=== PATIENT | male | born 1955 | race Caucasian/White ===

== ENCOUNTER 2024-03-04 13:25 | Outpatient (AMB) | payer OTHER, SELFPAY ==
--- NOTE | 2024-03-04 13:32 | MHC.OFFVIS ---
Vital Signs 03/04/24 13:34 Height 5 ft 10.5 in Weight 234 lb 12.677 oz BMI 33.2 BP 132/70 Blood Pressure Location Lt brachial Position Sitting Pulse 67 Pulse Source Pulse Oximeter Pulse Oximetry (%) 97 Oxygen Delivery Method Room Air Intake Visit Reasons: Shortness of breath Protection Officer Required: No Allergies doxycycline Allergy (Severe, Verified 03/04/24 14:47) Unknown erythromycin base Adverse Reaction (Severe, Verified 03/04/24 13:38) Anaphylaxis Penicillins Adverse Reaction (Severe, Verified 03/04/24 13:38) Unresponsive HPI Comments Details: The patient is here for pulmonary evaluation. The patient is a 68 man with know asthma who is also a souza. He has worsening respiratory symptoms for the last several months. Noticing in the spring that he could not seem as well. He was also noticing increasing shortness of breath. Because of the significant dyspnea on exertion and cough he was evaluated by his primary care doctor. He had a full cardiac workup which apparently per report was okay. He did undergo pulmonary function studies which I personally the report demonstrating mild restrictive ventilatory defects. No evidence of any obstructive ventilatory defects at that time. Diffusing capacity also within normal limits. The patient did undergo a CT scan of the chest which I review the report. He had what appears to be significant amount of bronchiolitis throughout. Patient also had evidence of pneumonitis primarily in the right lower lobe and left upper lobe. Also had evidence of bronchitis some mucus debris in the airway. He does have significant rhonchi and wheezing on examination. He is bringing up phlegm on a regular basis. Therefore will going to go ahead and give him a nebulizer treatment and get a sputum culture for further analysis. He will need additional blood work. The patient is only on albuterol right now. He will need additional therapy to treat the amount of inflammation of the lower respiratory tract. We did talk about exposures. Denies any fumes or toxins. Denies any significant allergy exposure. Denies any exposure to mold or farms. Denies any birds. 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 Will go ahead and test for any other inflammatory conditions at this time. [facility] Medical History (Updated 03/04/24 @ 21:59 by Jorge Cardenas MD) Asthma Bronchitis Pneumonitis Bronchiolitis Social History (Updated 03/04/24 @ 13:46 by RADHA Damian) Patient Tobacco Use Status: Never used Tobacco Review of Systems Const Denies fever(s) ENT Reports change in voice Card Denies chest pain Resp Reports chest congestion, Reports cough and Reports wheezing GI Reports no additional complaints Musc Reports no additional complaints Skin/Breast Denies rash Neuro Reports no additional complaints Kana/Lymph Reports no additional complaints Aller/Immun Reports wheezing Physical Exam Vital Signs: Last Vital Signs Pulse 67 03/04/24 13:34 BP 132/70 03/04/24 13:34 Pulse Ox 97 03/04/24 13:34 Oxygen Delivery Method Room Air 03/04/24 13:34 BMI result Body Mass Index 33.2 Const General: comfortable Neck Neck: Yes supple Chest Chest palpation & inspection: normal inspection of the chest Resp Effort & Inspection: normal respiratory effort and prolonged expiratory phase Auscultation: rhonchi, wheezes and diminished lung sounds Cardio Heart sounds: S1 normal heart sound present and S2 normal heart sound present GI Palpation (GI): Soft to palpation Skin General skin exam: no rashes or lesions noted Extrem General: Yes no clubbing, cyanosis or edema Office Procedures Nebulizer Treatment Nebulizer Treatment [id number] RX initial, or Nebulizer Subsequent Treatment Office Meds ipratropium 0.5 mg-albuterol 3 mg (2.5 mg base)/3 mL nebulization soln Performing Provider: Jorge Cardenas MD Performing Location: [facility] Administered by: Tania Hughes LPN on 03/04/24 14:31 Dose Route Admin Location Dispensed Lot Number Expiration Date [facility] [employer] 3 mL inhalation 3 mL [id number] 10/08/25 51501-095-14 AHP Assessment & Plan Assessment & Plan (1) Asthma: Code(s): J45.909 - Unspecified asthma, uncomplicated Category: Medical Qualifiers: Asthma severity: severe Asthma persistence: persistent Asthma complication type: with acute exacerbation Qualified Code(s): J45.51 - Severe persistent asthma with (acute) exacerbation (2) Bronchiolitis: Code(s): J21.9 - Acute bronchiolitis, unspecified Category: Medical (3) Bronchitis: Code(s): J40 - Bronchitis, not specified as acute or chronic Category: Medical (4) Pneumonitis: Code(s): J98.4 - Other disorders of lung Category: Medical Plan start Prednisone taper holding Abx until we review sputum culture. Has severe allergies including SJS. Severe reaction to macrolides/doxy/PCN. start Advair HFA, needs to rinse afterwards WICHO Needs a nebulizer start xopenex BID followed by CPT with acapella valve Bloodwork F/U 4-6 weeks Orders: Orders Complete Blood Count Auto Diff Today J2.9 - Acute bronchiolitis, unspecified, J40 - Bronchitis, not specified as acute or chronic, J98.4 - Other disorders of lung Immunoglobulins,IgG IgA IgM Today J2. - Acute bronchiolitis, unspecified, J40 - Bronchitis, not specified as acute or chronic, J98.4 - Other disorders of lung Sputum Cult + Gram stain Today J2. - Acute bronchiolitis, unspecified, J40 - Bronchitis, not specified as acute or chronic, J98.4 - Other disorders of lung Acid-fast Culture + Smear Today . - Acute bronchiolitis, unspecified, J40 - Bronchitis, not specified as acute or chronic, J98.4 - Other disorders of lung T Spot TB Today J2. - Acute bronchiolitis, unspecified Cyclic Citrullinated Peptide Today J2.9 - Acute bronchiolitis, unspecified, J40 - Bronchitis, not specified as acute or chronic, J98.4 - Other disorders of lung Angiotensin Converting Enzyme Today . - Acute bronchiolitis, unspecified, J40 - Bronchitis, not specified as acute or chronic, J98.4 - Other disorders of lung BECCA Reflex Titer and Pattern Today . - Acute bronchiolitis, unspecified, J40 - Bronchitis, not specified as acute or chronic, J98.4 - Other disorders of lung ANCA Vasculitides Today J2. - Acute bronchiolitis, unspecified, J40 - Bronchitis, not specified as acute or chronic, J98.4 - Other disorders of lung Hypersensitive Pneumonitis Prf Today J2.9 - Acute bronchiolitis, unspecified, J40 - Bronchitis, not specified as acute or chronic, J98.4 - Other disorders of lung, R91.8 - Other nonspecific abnormal finding of lung field Immunoglobulin E Today . - Acute bronchiolitis, unspecified, J40 - Bronchitis, not specified as acute or chronic, J98.4 - Other disorders of lung Resp Allergy Profile Region I Today J21.9 - Acute bronchiolitis, unspecified, J40 - Bronchitis, not specified as acute or chronic, J98.4 - Other disorders of lung, R91.1 - Solitary pulmonary nodule AMB Nebulizer Treatment Today J21.9 - Acute bronchiolitis, unspecified Medications: New prednisone PO daily; Take 2 tabs daily x 5 days, then 1 tablet daily x 5 days 15 tabs 0RF 10 days fluticasone propion-salmeterol 115-21 mcg/actuation (Advair HFA) 2 puffs inhalation Q12H 12 grams 11RF 30 days levalbuterol HCl 1.25 mg (3 mL) inhalation BID 180 mL 8RF 30 days J44.9 - Chronic obstructive pulmonary disease, unspecified Coding Level of Care Code New Pt Level 5 (40889) Diagnoses Severe persistent asthma with acute exacerbation J45.51 Asthma severity: severe Asthma persistence: persistent Asthma complication type: with acute exacerbation Bronchiolitis J21.9 Bronchitis J40 Pneumonitis J98.4 CPT Codes Nebulizer Treatment - Nebulizer Treatment, initial or subsequent: [id number] RX initial, or Nebulizer Subsequent Treatment ([id number]) Time Spent (min) 60
[2024-03-04 13:34] VITALS: BP 132/70; PULSE 67; O2SAT 97; BMI 33.2
== END 2024-03-04 14:45 | disposition home or self-care (01) ==
PROVIDERS: PCP Internal Medicine; Referring Provider Physician Assistant; Visit Provider Hospitalist
DX: J45.51 Severe persistent asthma with (acute) exacerbation (principal); J21.9 Acute bronchiolitis, unspecified; J40 Bronchitis, not specified as acute or chronic; J98.4 Other disorders of lung
CPT/HCPCS: 99205

== ENCOUNTER 2024-03-04 13:25 | Outpatient (REF) | payer OTHER, SELFPAY ==
[2024-03-04 15:16] LABS: MANUAL DIFF FLAG NO
[2024-03-04 15:48] LABS: Basophils Absolute Auto 0.1 X10*3/uL (0.0-0.2); Basophils Percent Auto 0.8 % (0-2); Eosinophils Absolute Auto 0.4 X10*3/uL (0.0-0.4); Eosinophils Percent Auto 3.7 % (0-4); Hematocrit 45.4 % (42.0-52.0); Hemoglobin 15.5 g/dl (14.0-18.0); Imm Gran Abs Auto 0.01 X10*3/uL (0.00-0.03); Imm Gran Pct Auto 0.1 % (0.0-0.4); Lymphocytes Absolute Auto 4.9 X10*3/uL (1.2-4.9); Lymphocytes Percent Auto 49.2 % (20-40); Mean Corpuscular HGB Conc 34.1 g/dl (31.0-36.0); Mean Corpuscular Hemoglobin 31.3 pg (27.0-33.0); Mean Corpuscular Volume 91.5 fL (80.0-98.0); Mean Platelet Volume 12.6 fL (9.4-12.4); Monocytes Absolute Auto 0.5 X10*3/uL (0.1-1.2); Monocytes Percent Auto 4.8 % (2-11); Neutrophils Absolute Auto 4.2 x10*3/uL (2.0-8.3); Neutrophils Percent Auto 41.4 % (45-73); Platelet Count 171 X10*3/uL (160-400); Red Blood Count 4.96 X10*6/uL (4.60-5.80); Red Cell Distribution Width 13.1 % (11.0-16.0)
[2024-03-05 12:04] LABS: IgA 214 mg/dL (70-320); IgG 989 mg/dL (600-1540); IgM 83 mg/dL (50-300)
[2024-03-05 22:07] LABS: Myeloperoxidase Antibody <1.0 AI; Proteinase 3 PR3 Antibodies <1.0 AI
[2024-03-06 05:45] LABS: Class Alternaria alternata 0; Class Aspergillus fumigatus 0; Class Bermuda Grass 2; Class Birch 2; Class Cat Dander 0; Class Cladosporium herbarum 0; Class Cockroach 0; Class Common Ragweed 0/1; Class Cottonwood 0/1; Class Derm. pterony 2; Class Dermatophagoides farinae 2; Class Dog Dander 0; Class Elm 0/1; Class Maple Box Elder 2; Class Mountain Cedar 0; Class Mouse Urine Protein 0; Class Mugwort 0/1; Class Oak 1; Class Penicillium crysogenum 0; Class Rough Pigweed 1; Class Sheep Sorrel 1; Class Sycamore 1; Class Timothy Grass 2; Class Walnut Tree 0/1; Class White Ash 2; Class White Mulberry 0; D001 IgE D pteronyssinus 3.18 kU/L; D002 - IgE D farinae 2.44 kU/L; E001 - IgE Cat Dander <0.10 kU/L; E005 - IgE Dog Dander <0.10 kU/L; E072-IgE Mouse Urine <0.10 kU/L; G002 IgE Bermuda Grass 0.81 kU/L; G006 - IgE Timothy Grass 0.78 kU/L; I006-IgE Cockroach, German <0.10 kU/L; Immunoglobulin E 108 kU/L (<OR=114); M001 IgE Penicillium chrysogen <0.10 kU/L; M002 - IgE Cladosporium herbar <0.10 kU/L; M003 - IgE Aspergillus fumigat <0.10 kU/L; M006 - IgE Alternaria alternat <0.10 kU/L; T001 IgE Maple/Box Elder 0.71 kU/L; T003 IgE Common Silver Birch 0.94 kU/L; T006 - IgE Cedar, Mountain <0.10 kU/L; T007 - IgE Oak, White 0.63 kU/L; T010 - IgE Walnut 0.33 kU/L; T011 - IgE Maple Leaf Sycamore 0.62 kU/L; T014 - IgE Cottonwood 0.32 kU/L; T015 - IgE Ash, White 0.74 kU/L; T070 - IgE White Mulberry <0.10 kU/L; W001 - IgE Ragweed, Short 0.32 kU/L; W006 - IgE Mugwort 0.27 kU/L; W014 IgE Pigweed, Common 0.68 kU/L; W018 IgE Sheep Sorrel 0.64 kU/L
[2024-03-06 06:24] LABS: Cyclic Citrullinated Peptide <16 UNITS
[2024-03-06 16:09] LABS: Anti Nuclear Antibody Pattern Nuclear, Homogeneous; Anti Nuclear Antibody Screen POSITIVE (NEGATIVE)
[2024-03-07 16:12] LABS: TS Negative Control Passed; TS Panel A 0; TS Panel B 0; TS Positive Control Passed; TSpotTB Negative (Negative)
[2024-03-07 19:23] LABS: Angiotensin Converting Enzyme 51 U/L (9-67)
[2024-03-13 13:32] LABS: Asperg fumigatus Precip Abs NEGATIVE (NEGATIVE); Micropoly faeni Abs NEGATIVE (NEGATIVE); Pigeon serum Abs NEGATIVE (NEGATIVE); Saccharo pora viridis Abs NEGATIVE (NEGATIVE); Thermo candidus Abs NEGATIVE (NEGATIVE); Thermoa vulgaris #1 NEGATIVE (NEGATIVE)
== END 2024-03-04 13:26 | disposition home or self-care (01) ==
LOC: HO.LAB 13:25
PROVIDERS: PCP Internal Medicine; Referring Provider Physician Assistant; Visit Provider Hospitalist
DX: J21.9 Acute bronchiolitis, unspecified (principal); J98.4 Other disorders of lung; J40 Bronchitis, not specified as acute or chronic; R91.8 Other nonspecific abnormal finding of lung field; R91.1 Solitary pulmonary nodule; Z91.09 Other allergy status, other than to drugs and biological substances
CPT/HCPCS: 36415; 82164; 82784; 82785; 85025; 86003; 86021; 86038; 86039; 86200; 86331; 86481; 86606; 86609; 87070; 87077; 87116; 87185; 87205; 87206; 94640

== ENCOUNTER 2024-03-10 12:55 | Outpatient (REF) | payer OTHER, SELFPAY | END 2024-03-10 12:56 | disposition home or self-care (01) | LOC: HO.LNP 12:55 | PROVIDERS: Visit Provider Hospitalist | DX: J21.9 Acute bronchiolitis, unspecified (principal); J98.4 Other disorders of lung; J40 Bronchitis, not specified as acute or chronic | CPT/HCPCS: 87070; 87116; 87205; 87206 ==

== ENCOUNTER 2024-04-23 08:33 | Outpatient (AMB) | payer OTHER, SELFPAY ==
--- NOTE | 2024-04-23 08:34 | MHC.OFFVIS ---
Vital Signs 04/23/24 08:36 Height 5 ft 10.5 in Weight 235 lb 14.314 oz BMI 33.4 BP 126/64 Blood Pressure Location Lt brachial Position Sitting Pulse 89 Pulse Source Pulse Oximeter Pulse Oximetry (%) 99 Oxygen Delivery Method Room Air Intake Visit Reasons: Shortness of breath Chain Tender Required: No Fumigator And Sterilizer: Fumigator And Sterilizer offered & declined Accompanied by: Spouse Allergies doxycycline Allergy (Severe, Verified 04/23/24 08:39) Unknown erythromycin base Adverse Reaction (Severe, Verified 04/23/24 08:39) Anaphylaxis Penicillins Adverse Reaction (Severe, Verified 04/23/24 08:39) Unresponsive Medication List - Last Reconciled 04/23/24 by Christina Garcia LPN albuterol sulfate 90 mcg/actuation 2 puffs inhalation Q6H PRN ascorbic acid (vitamin C) 500 mg PO BID B-complex with vitamin C ER 1 tab PO DAILY fluocinonide 0.05% 1 appl topical BID-QID PRN fluticasone propion-salmeterol 115-21 mcg/actuation (Advair HFA) 2 puffs inhalation Q12H 30 days hydrochlorothiazide 12.5 mg PO DAILY ibuprofen 800 mg PO Q8H iodine (Kelp (iodine)) mcg PO levalbuterol HCl 1.25 mg (3 mL) inhalation BID 30 days levothyroxine 50 mcg PO DAILY melatonin mg PO potassium citrate ER 10 mEq PO TID sulfamethoxazole-trimethoprim 800-160 mg (Bactrim DS) 1 tab PO Q12H 14 days tamsulosin (Flomax) 0.4 mg PO BEDTIME triamcinolone acetonide 0.1% 1 appl topical DAILY tyrosine 500 mg PO BID vitamin E mixed units PO HPI Comments Details: The patient is a 68 man with know asthma who is also a souza. He has worsening respiratory symptoms for the last several months. Noticing in the spring that he could not seem as well. He was also noticing increasing shortness of breath. Because of the significant dyspnea on exertion and cough he was evaluated by his primary care doctor. He had a full cardiac workup which apparently per report was okay. He did undergo pulmonary function studies which I personally the report demonstrating mild restrictive ventilatory defects. No evidence of any obstructive ventilatory defects at that time. Diffusing capacity also within normal limits. The patient did undergo a CT scan of the chest which I review the report. He had what appears to be significant amount of bronchiolitis throughout. Patient also had evidence of pneumonitis primarily in the right lower lobe and left upper lobe. Also had evidence of bronchitis some mucus debris in the airway. He does have significant rhonchi and wheezing on examination. He is bringing up phlegm on a regular basis. Therefore will going to go ahead and give him a nebulizer treatment and get a sputum culture for further analysis. He will need additional blood work. The patient is only on albuterol right now. He will need additional therapy to treat the amount of inflammation of the lower respiratory tract. We did talk about exposures. Denies any fumes or toxins. Denies any significant allergy exposure. Denies any exposure to mold or farms. Denies any birds. 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 Will go ahead and test for any other inflammatory conditions at this time. 04/23/2024 the patient is here for a pulmonary follow-up visit. He is still having his cough. Still having some wheezing. The nebulizer has been helpful. He is still having some chest congestion. His cultures were negative for any infection. Still waiting for his mycobacterial cultures. Blood work demonstrated a slightly elevated BECCA which is likely nonsignificant and also demonstrated significant allergies specially to dust mites and also environmental allergies. The patient was not able to start the Advair HFA because he did not receive the pharmacy. Was sent but likely it was not approved by his insurance. We never got a call. Will had and set him Wixela which is covered. 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 If at any point the powdered inhaler bothers his voice will go ahead and do a prior approval to get him a HFA inhaler such as Advair HFA. In the meantime the patient should continue the nebulizer. He never got the Acapella valve. I will go ahead and requested again from the [employer]. He did bring a CD and I will take a look at the images to see the degree of bronchiolitis. He is going to work on getting hypoallergenic covers and also maybe removing the carpus out of his bedroom. The patient will return 6-8 weeks. If he has no better or if he is having a reaction to the medication he will call for an earlier evaluation or change. [facility] Medical History (Updated 03/04/24 @ 21:59 by Jorge Cardenas MD) Asthma Bronchitis Pneumonitis Bronchiolitis Social History Patient Tobacco Use Status: Never used Tobacco Review of Systems Const Denies fever(s) ENT Reports change in voice Card Denies chest pain Resp Reports chest congestion, Reports cough and Reports wheezing GI Reports no additional complaints Musc Reports no additional complaints Skin/Breast Denies rash Neuro Reports no additional complaints Kana/Lymph Reports no additional complaints Aller/Immun Reports wheezing Physical Exam Vital Signs: Last Vital Signs Pulse 89 04/23/24 08:36 BP 126/64 04/23/24 08:36 Pulse Ox 99 04/23/24 08:36 Oxygen Delivery Method Room Air 04/23/24 08:36 BMI result Body Mass Index 33.4 Const General: comfortable Neck Neck: Yes supple Chest Chest palpation & inspection: normal inspection of the chest Resp Effort & Inspection: normal respiratory effort and prolonged expiratory phase Auscultation: wheezes and diminished lung sounds Cardio Heart sounds: S1 normal heart sound present and S2 normal heart sound present GI Palpation (GI): Soft to palpation Skin General skin exam: no rashes or lesions noted Extrem General: Yes no clubbing, cyanosis or edema Assessment & Plan Assessment & Plan (1) Asthma: Code(s): J45.909 - Unspecified asthma, uncomplicated Category: Medical Qualifiers: Asthma complication type: with acute exacerbation Asthma persistence: persistent Asthma severity: severe Qualified Code(s): J45.51 - Severe persistent asthma with (acute) exacerbation (2) Bronchiolitis: Code(s): J21.9 - Acute bronchiolitis, unspecified Category: Medical (3) Bronchitis: Code(s): J40 - Bronchitis, not specified as acute or chronic Category: Medical (4) Pneumonitis: Code(s): J98.4 - Other disorders of lung Category: Medical Plan Severe reaction to macrolides/doxy/PCN. start Wixela, monitor for laryngitis WICHO nebulizer xopenex BID followed by CPT needs an acapella valve hypoallergenic covers need to review CT chest F/U 8-12weeks Medications: New fluticasone propion-salmeterol 250-50 mcg/dose (Wixela Inhub) 1 inh inhalation Q12H 60 ea 11RF 30 days Coding Level of Care Code Est Pt Level 4 (58993) Diagnoses Severe persistent asthma with acute exacerbation J45.51 Asthma complication type: with acute exacerbation Asthma persistence: persistent Asthma severity: severe Bronchiolitis J21.9 Bronchitis J40 Pneumonitis J98.4 Time Spent (min) 17
[2024-04-23 08:36] VITALS: BP 126/64; PULSE 89; O2SAT 99; BMI 33.4
== END 2024-04-23 09:04 | disposition home or self-care (01) ==
PROVIDERS: PCP Internal Medicine; Visit Provider Hospitalist
DX: J45.51 Severe persistent asthma with (acute) exacerbation (principal); J21.9 Acute bronchiolitis, unspecified; J40 Bronchitis, not specified as acute or chronic; J98.4 Other disorders of lung
CPT/HCPCS: 99214

== ENCOUNTER 2024-06-17 15:19 | Outpatient (AMB) | payer OTHER, SELFPAY ==
[2024-06-17 15:21] VITALS: BP 130/70; PULSE 70; O2SAT 100; BMI 34.1
--- NOTE | 2024-06-17 15:21 | A.OFFVIS_ITS ---
Vital Signs 06/17/24 15:21 Height 5 ft 10.5 in Weight 241 lb 6.499 oz BMI 34.1 BP 130/70 Blood Pressure Location Rt brachial Position Sitting Pulse 70 Pulse Source Pulse Oximeter Pulse Oximetry (%) 100 Oxygen Delivery Method Room Air Intake Visit Reasons: Shortness of breath Allergies doxycycline Allergy (Severe, Verified 06/17/24 15:24) Unknown erythromycin base Adverse Reaction (Severe, Verified 06/17/24 15:24) Anaphylaxis Penicillins Adverse Reaction (Severe, Verified 06/17/24 15:24) Unresponsive HPI Comments Details: The patient is a 68 man with know asthma who is also a souza. He has worsening respiratory symptoms for the last several months. Noticing in the spring that he could not seem as well. He was also noticing increasing shortness of breath. Because of the significant dyspnea on exertion and cough he was evaluated by his primary care doctor. He had a full cardiac workup which shannon arently per report was okay. He did undergo pulmonary function studies which I personally the report demonstrating mild restrictive ventilatory defects. No evidence of any obstructive ventilatory defects at that time. Diffusing capacity also within normal limits. The patient did undergo a CT scan of the chest which I review the report. He had what appears to be significant amount of bronchiolitis throughout. Patient also had evidence of pneumonitis primarily in the right lower lobe and left upper lobe. Also had evidence of bronchitis some mucus debris in the airway. He does have significant rhonchi and wheezing on examination. He is bringing up phlegm on a regular basis. Therefore will going to go ahead and give him a nebulizer treatment and get a sputum culture for further analysis. He will need additional blood work. The patient is only on albuterol right now. He will need additional therapy to treat the amount of inflammation of the lower respiratory tract. We did talk about exposures. Denies any fumes or toxins. Denies any significant allergy exposure. Denies any exposure to mold or farms. Denies any birds. 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 Will go ahead and test for any other inflammatory conditions at this time. 04/23/2024 the patient is here for a pulmonary follow-up visit. He is still having his cough. Still having some wheezing. The nebulizer has been helpful. He is still having some chest congestion. His cultures were negative for any infection. Still waiting for his mycobacterial cultures. Blood work demonstrated a slightly elevated BECCA which is likely nonsignificant and also demonstrated significant allergies specially to dust mites and also environmental allergies. The patient was not able to start the Advair HFA because he did not receive the pharmacy. Was sent but likely it was not approved by his insurance. We never got a call. Will had and set him Wixela which is covered. 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 If at any point the powdered inhaler bothers his voice will go ahead and do a prior approval to get him a HFA inhaler such as Advair HFA. In the meantime the patient should continue the nebulizer. He never got the Acapella valve. I will go ahead and requested again from the [employer]. He did bring a CD and I will take a look at the images to see the degree of bronchiolitis. He is going to work on getting hypoallergenic covers and also maybe removing the carpus out of his bedroom. The patient will return 6-8 weeks. If he has no better or if he is having a reaction to the medication he will call for an earlier evaluation or change. 06/17/2024 the patient is here for a pulmonary follow-up visit. Overall the patient has been doing better. He is still having chest congestion though. He has not started the Wixela because he has the consult coming up and he does not want a message voice for the consult. Then afterwards he will try the Wixela. In the meantime the patient did bring the CD in for a CT scan that he had back in 11/29/2023 this was done at [facility]. We did personally reviewed. He had some evidence of bronchiolitis with a minimal and did have pulmonary nodules in addition to some inflammatory areas suggesting pneumonitis. Also had evidence of chronic bronchitis with thickening of the airways and dilation of the airways. This is mainly at the bases. We were able to teach him how to use the Acapella valve use that in the office and was able to bring up some phlegm. He is going to do it again at home and try to continue to use it after the nebulized therapy for chest physical therapy. He is going to try to bring a sputum sample to the laboratory for further analysis. We can also consider bronchoscopy but I would be very cautious with the vocal cords specially with having to go through the vocal cords for an airway survey. Will plan to repeat the CT scan in 3 months to follow-up with his pulmonary nodules have not follow- up then. In the meantime he can start Wixela after his cancer to see this helpful. Once we get a sputum culture we can decide if we can treat him we have to be very careful with significant Ravi Luis reaction that he had previously. [facility] Medical History (Updated 06/17/24 @ 20:05 by Jorge Cardenas MD) Pulmonary nodules Asthma Bronchitis Pneumonitis Bronchiolitis Social History Patient Tobacco Use Status: Never used Tobacco Review of Systems Const Denies fever(s) ENT Reports change in voice Card Denies chest pain Resp Reports chest congestion, Reports cough and Reports wheezing GI Reports no additional complaints Musc Reports no additional complaints Skin/Breast Denies rash Neuro Reports no additional complaints Kana/Lymph Reports no additional complaints Aller/Immun Reports wheezing Physical Exam Vital Signs: Last Vital Signs Pulse 70 06/17/24 15:21 BP 130/70 06/17/24 15:21 Pulse Ox 100 06/17/24 15:21 Oxygen Delivery Method Room Air 06/17/24 15:21 BMI result Body Mass Index 34.1 Const General: comfortable Neck Neck: Yes supple Chest Chest palpation & inspection: normal inspection of the chest Resp Effort & Inspection: normal respiratory effort and prolonged expiratory phase Auscultation: rhonchi, wheezes and diminished lung sounds Cardio Heart sounds: S1 normal heart sound present and S2 normal heart sound present GI Palpation (GI): Soft to palpation Skin General skin exam: no rashes or lesions noted Extrem General: Yes no clubbing, cyanosis or edema Assessment & Plan Assessment & Plan (1) Asthma: Code(s): J45.909 - Unspecified asthma, uncomplicated Category: Medical Qualifiers: Asthma complication type: with acute exacerbation Asthma persistence: persistent Asthma severity: severe Qualified Code(s): J45.51 - Severe persistent asthma with (acute) exacerbation (2) Bronchiolitis: Code(s): J21.9 - Acute bronchiolitis, unspecified Category: Medical (3) Bronchitis: Code(s): J40 - Bronchitis, not specified as acute or chronic Category: Medical (4) Pneumonitis: Code(s): J98.4 - Other disorders of lung Category: Medical (5) Pulmonary nodules: Code(s): R91.8 - Other nonspecific abnormal finding of lung field Category: Medical Plan Severe reaction to macrolides/doxy/PCN. start Wixela when able WICHO nebulizer xopenex BID followed by CPT with acapella valve hypoallergenic covers repeat CT chest in 3 months - [facility] sputum cx F/U 3-4 months Orders: Orders Sputum Cult + Gram stain Today J45.51 - Severe persistent asthma with (acute) exacerbation CT chest wo IV con 3 Months J21.9 - Acute bronchiolitis, unspecified, J40 - Bronchitis, not specified as acute or chronic, J98.4 - Other disorders of lung, R91.8 - Other nonspecific abnormal finding of lung field Acid-fast Culture + Smear Today J21.9 - Acute bronchiolitis, unspecified, J40 - Bronchitis, not specified as acute or chronic Coding Level of Care Code Est Pt Level 4 (73319) Complex EM visit Add On G2211 Diagnoses Severe persistent asthma with acute exacerbation J45.51 Asthma complication type: with acute exacerbation Asthma persistence: persistent Asthma severity: severe Bronchiolitis J21.9 Bronchitis J40 Pneumonitis J98.4 Pulmonary nodules R91.8 Time Spent (min) 18
== END 2024-06-17 15:54 | disposition home or self-care (01) ==
PROVIDERS: PCP Internal Medicine; Visit Provider Hospitalist
DX: J45.51 Severe persistent asthma with (acute) exacerbation (principal); J21.9 Acute bronchiolitis, unspecified; J40 Bronchitis, not specified as acute or chronic; J98.4 Other disorders of lung; R91.8 Other nonspecific abnormal finding of lung field
CPT/HCPCS: 99214

== ENCOUNTER 2024-06-18 09:00 | Outpatient (REF) | payer OTHER, SELFPAY | END 2024-06-18 09:01 | disposition home or self-care (01) | LOC: HO.LNP 09:00 | PROVIDERS: PCP Internal Medicine; Visit Provider Hospitalist | DX: J45.51 Severe persistent asthma with (acute) exacerbation (principal); J40 Bronchitis, not specified as acute or chronic; J21.9 Acute bronchiolitis, unspecified | CPT/HCPCS: 87070; 87077; 87116; 87186; 87205; 87206 ==

== ENCOUNTER 2024-09-15 15:31 | Outpatient (AMB) | payer OTHER, SELFPAY ==
[2024-09-15 15:37] VITALS: BP 128/74; PULSE 63; O2SAT 97; BMI 33.8
--- NOTE | 2024-09-15 15:37 | A.OFFVIS_ITS ---
Vital Signs 09/15/24 15:37 Height 5 ft 10.5 in Weight 239 lb 3.225 oz BMI 33.8 BP 128/74 Blood Pressure Location Rt brachial Position Sitting Pulse 63 Pulse Source Pulse Oximeter Pulse Oximetry (%) 97 Oxygen Delivery Method Room Air Intake Visit Reasons: Shortness of breath Allergies doxycycline Allergy (Severe, Verified 09/15/24 16:03) Unknown Penicillins Adverse Reaction (Severe, Verified 09/15/24 15:40) Unresponsive HPI Comments Details: The patient is a 68 man with know asthma who is also a souza. He has worsening respiratory symptoms for the last several months. Noticing in the spring that he could not seem as well. He was also noticing increasing shortness of breath. Because of the significant dyspnea on exertion and cough he was evaluated by his primary care doctor. He had a full cardiac workup which apparently per report was okay. He did undergo pulmonary function studies which I personally the report demonstrating mild restrictive ventilatory defects. No evidence of any obstructive ventilatory defects at that time. Diffusing capacity also within normal limits. The patient did undergo a CT scan of the chest which I review the report. He had what appears to be significant amount of bronchiolitis throughout. Patient also had evidence of pneumonitis primarily in the right lower lobe and left upper lobe. Also had evidence of bronchitis some mucus debris in the airway. He does have significant rhonchi and wheezing on examination. He is bringing up phlegm on a regular basis. Therefore will going to go ahead and give him a nebulizer treatment and get a sputum culture for further analysis. He will need additional blood work. The patient is only on albuterol right now. He will need additional therapy to treat the amount of inflammation of the lower respiratory tract. We did talk about exposures. Denies any fumes or toxins. Denies any significant allergy exposure. Denies any exposure to mold or farms. Denies any birds. 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 He does have a history of Ravi Luis other autoimmune diseases. Will go ahead and test for any other inflammatory conditions at this time. 04/23/2024 the patient is here for a pulmonary follow-up visit. He is still having his cough. Still having some wheezing. The nebulizer has been helpful. He is still having some chest congestion. His cultures were negative for any infection. Still waiting for his mycobacterial cultures. Blood work demonstrated a slightly elevated BECCA which is likely nonsignificant and also demonstrated significant allergies specially to dust mites and also environmental allergies. The patient was not able to start the Advair HFA bec ause he did not receive the pharmacy. Was sent but likely it was not approved by his insurance. We never got a call. Will had and set him Wixela which is covered. 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 If at any point the powdered inhaler bothers his voice will go ahead and do a prior approval to get him a HFA inhaler such as Advair HFA. In the meantime the patient should continue the nebulizer. He never got the Acapella valve. I will go ahead and requested again from the [facility]. He did bring a CD and I will take a look at the images to see the degree of bronchiolitis. He is going to work on getting hypoallergenic covers and also maybe removing the carpus out of his bedroom. The patient will return 6-8 weeks. If he has no better or if he is having a reaction to the medication he will call for an earlier evaluation or change. 06/17/2024 the patient is here for a pulmonary follow-up visit. Overall the patient has been doing better. He is still having chest congestion though. He has not started the Wixela because he has the consult coming up and he does not want a message voice for the consult. Then afterwards he will try the Wixela. In the meantime the patient did bring the CD in for a CT scan that he had back in 11/29/2023 this was done at [facility]. We did personally reviewed. He had some evidence of bronchiolitis with a minimal and did have pulmonary nodules in addition to some inflammatory areas suggesting pneumonitis. Also had evidence of chronic bronchitis with thickening of the airways and dilation of t he airways. This is mainly at the bases. We were able to teach him how to use the Acapella valve use that in the office and was able to bring up some phlegm. He is going to do it again at home and try to continue to use it after the nebulized therapy for chest physical therapy. He is going to try to bring a sputum sample to the laboratory for further analysis. We can also consider bronchoscopy but I would be very cautious with the vocal cords specially with having to go through the vocal cords for an airway survey. Will plan to repeat the CT scan in 3 months to follow-up with his pulmonary nodules have not follow- up then. In the meantime he can start Wixela after his cancer to see this helpful. Once we get a sputum culture we can decide if we can treat him we have to be very careful with significant Ravi Luis reaction that he had previously. 09/15/2024 the patient is here for a pulmonary follow-up visit. Overall the patient has been doing fair. Apparently he was exposed to a sick contact and started developing UR like symptoms and now developing worsening chest tightness and cough. The mucus is yellowish in color. Moderate severity. He has been using the Xopenex. Initially he had started the Wixela. But when he got sick he was under the impression that he could not using during an acute flare-up so he stopped the medicine. I did reassure him that he should continue the medicine that although it is not meant to be used for acute therapy he should continue a during an acute flare up to minimize symptoms. The patient did have a CT scan of the chest as well before he got sick back in July demonstrating bronchiolitis in the right lower lobe suggesting the possibility of micro aspirations in addition to nodular ground-glass nodular densities in the upper lung zones suggesting some degree of inflammation. This brings up the question of a hypersensitivity type of reaction. Sarcoid is also in differential. His blood work was all negative except for his significant allergies and also a slight elevation in the BECCA does likely to be a false-positive. For now though will go ahead and request a barium swallow based on the possibility of micro aspirations. The patient should also sleep elevated. Because of the wheezing he will be prescribed a Medrol Cristofer to try helping with the wheezing. He can continue with Wixela at least on a daily basis. He can use the Xopenex as needed. And will sleep elevated. If his symptoms are not getting better we did talk about antibiotic therapies. Apparently he has taken a Z-Cristofer in the past any tolerated that well although we see erythromycin based medications and allergies this for the patient is not correct. Therefore I will remove azithromycin and erythromycin from his allergies at this time. [facility] Medical History (Updated 06/17/24 @ 20:05 by Jorge Cardenas MD) Pulmonary nodules Asthma Bronchitis Pneumonitis Bronchiolitis Social History Patient Tobacco Use Status: Never used Tobacco Review of Systems Const Denies fever(s) ENT Reports change in voice and Reports sore throat Card Denies chest pain Resp Reports chest congestion, Reports cough and Reports wheezing GI Reports no additional complaints Musc Reports no additional complaints Skin/Breast Denies rash Neuro Reports no additional complaints Kana/Lymph Reports no additional complaints Aller/Immun Reports wheezing Physical Exam Vital Signs: Last Vital Signs Pulse 63 09/15/24 15:37 BP 128/74 09/15/24 15:37 Pulse Ox 97 09/15/24 15:37 Oxygen Delivery Method Room Air 09/15/24 15:37 BMI result Body Mass Index 33.8 Const General: comfortable Neck Neck: Yes supple Chest Chest palpation & inspection: normal inspection of the chest Resp Effort & Inspection: normal respiratory effort and prolonged expiratory phase Auscultation: rhonchi, wheezes and diminished lung sounds Cardio Heart sounds: S1 normal heart sound present and S2 normal heart sound present GI Palpation (GI): Soft to palpation Skin General skin exam: no rashes or lesions noted Extrem General: Yes no clubbing, cyanosis or edema Assessment & Plan Assessment & Plan (1) Asthma: Code(s): J45.909 - Unspecified asthma, uncomplicated Category: Medical Qualifiers: Asthma complication type: with acute exacerbation Asthma persistence: persistent Asthma severity: severe Qualified Code(s): J45.51 - Severe persistent asthma with (acute) exacerbation (2) Bronchiolitis: Code(s): J21.9 - Acute bronchiolitis, unspecified Category: Medical (3) Bronchitis: Code(s): J40 - Bronchitis, not specified as acute or chronic Category: Medical (4) Pneumonitis: Code(s): J98.4 - Other disorders of lung Category: Medical (5) Pulmonary nodules: Code(s): R91.8 - Other nonspecific abnormal finding of lung field Category: Medical Plan restart Wixela daily start Medrol pk Zpack if worsening congestion Barium swallow WICHO nebulizer xopenex BID followed by CPT with acapella valve hypoallergenic covers repeat CT chest, will request CD to review sputum cx +pseudomonas s/p treatment F/U 3-4 months Medications: New methylprednisolone (Medrol (Cristofer)) PO PER PKG DIR 21 ea 0RF 6 days azithromycin 500 mg PO DAILY 5 tabs 0RF 5 days Coding Level of Care Code Est Pt Level 4 (38306) Complex EM visit Add On G2211 Diagnoses Severe persistent asthma with acute exacerbation J45.51 Asthma complication type: with acute exacerbation Asthma persistence: persistent Asthma severity: severe Bronchiolitis J21.9 Bronchitis J40 Pneumonitis J98.4 Pulmonary nodules R91.8 Time Spent (min) 17
--- OUTSIDE RECORDS SUMMARY | 2024-09-15 18:15 | XMS_ITS | Data Portability ---
Author Organization [facility], , [facility] Address [address] [place] [address] Assessment No assessment recorded. Plan of Treatment Reminders Order Date Submit Date Provider Last Modified By Organization Details Last Modified Time Details Appointments None record ed. Lab None record ed. Referral None record ed. Procedures None record ed. Surgeries None record ed. Imaging None record ed. Medication Orders None record ed. Patient TargetsNo targets recorded. Patient InstructionsNo instructions recorded. Reason for Referral None Reported. Results Created Date Observation Date Name Description Value Unit Range Abnormal Flag Note LastModifiedBy Organization Detail LastModifiedTime Result Notes None recorded. Procedures Surgical History Date Name Laterality Status Provider Name and Address Organization Details Recorded Time 6 Tulio - Colonoscopy completed Lj Antunez MD [address] [place] [address], [id number], [facility] 06/17/2015 10:05:43 Imaging Results None recorded. Procedure Notes None recorded. Medical Equipment None Reported. Medications Name Sig Start Date Stop Date Status Note LastModified by Organization Details LastModified Time prochlorperazine maleate 10 mg tabs active Not Available Not Edna ilable Not Available Vitals None Recorded Social History Question Answer Notes LastModified by Organizat ion Details LastModified Time Do You Have An Advance Directive? Yes Health Care Proxy On File marvanitis Information not available 06/17/2015 Patient Has Health Care Proxy Signed And In Chart Yes [email or web address] Information not available 05/13/2018 Sex: Unknown Functional Status None recorded. Mental Status None recorded. Family History Nothing Reported. Medical History No medical history recorded. Past Encounters Encounter ID Performer Location Encounter Start Date Encounter Closed Date Diagnosis/Indication Diagnosis SNOMED-CT Code Diagnosis ICD10 Code Diagnosis Note [id number] Allie Montiel [facility], [address] [address] 06/17/2015 08:44:01 06/17/2015 10:41:10 Health Concerns Section Related Observation LastModified by Organization Detai ls LastModified Time None Recorded Concern Status LastModified by Organization Details LastModified Time None Recorded Advance Directives Directive Y: Health care proxy on file Payers Encounter Date Sequence Insurance Name Policy Number Policy Freeman Covered Member ID Freeman Member ID Guarantor Name 06/17/2015 1 [facility] [id number] Lionel Jarvis [id number] Lionel Jarvis
--- OUTSIDE RECORDS SUMMARY | 2024-09-15 18:15 | XMS_ITS | Data Portability ---
Author Organization [facility] Home Service Address [address] [place] [address] Assessment Encounter Date Assessment Date Assessment LastModified by Organization Details LastModified Time 01/02/2022 01/02/2022 Patient agreed and verbally consents to this audio and video Telehealth appt via a secure platform [email or web address] Not available 01/02/2022 15:21:22 07/17/2022 07/17/2022 Patient agreed and verbally consents to this audio and video Telehealth appt via a secure platform [email or web address] Not available 07/17/2022 13:55:08 Plan of Treatment Reminders Order Date Submit Date Provider Last Modified By Organization Details Last Modified Time Details Appointments ANNUAL EXAM 2024 09:00A BIJAN WILKES Not available Not available Not available Lab anaplasma phagocyto philum (hga/hge) igg+igm Ab, serum 2023 024 [facility], [place], [address], 11/11/2023 09:05:17 ehrlichia chaffeens is, igg+igm Ab, serum 2023 024 [facility], [place], [address], 11/11/2023 15:36:15 lyme disease igg+[facility], serum, reflex western blot 2023 024 [facility], [place], [address], 10/29/2023 09:19:27 rickettsi a rickettsi i igg+igm Ab, serum 2023 024 [facility], [place], [address], 10/29/2023 09:19:27 CMP, serum or plasma 2022 023 [facility], [address] [place] [address], [address], 10/23/2022 13:09:30 CBC w/ auto diff 2022 023 [facility], [address] [place] [address], [address], 10/23/2022 13:09:29 lipid panel, blood 2022 023 [facility], [address] [place] [address], [address], 10/23/2022 13:08:52 TSH + free T4, serum 2022 023 [facility], [address] [place] [address], [place], [address], 10/23/2022 09:30:37 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 Surgeries None recorded. Imaging electromy ogram + nerve conductio n study 2023 024 estevan Alcantara MD, [address] [place] [address], [address], 11/06/2023 09:08:47 CT, chest, w/o contrast 2023 024 estevan Not available 10/30/2023 08:19:23 PFT, complete 2023 024 [email or web address] Not available 12/26/2023 15:44:37 US, echocardi ogram 2023 024 [email or web address] Not available 10/30/2023 08:19:23 exercise stress test 2023 024 YONY Not available 11/09/2023 10:36:39 XR, chest, 2 view 2021 022 YONY Not available 05/16/2022 11:03:00 Medication Orders albuterol sulfate HFA 90 mcg/actua tion aerosol inhaler 2023 024 [facility], [address] [place] [address], [address], 10/29/2023 09:33:59 Paxlovid 300 mg (150 mg x 2)-100 mg tablets in a dose pack 2022 023 [email or web address] [id number], [address] [place], [address], 10/23/2022 09:04:51 albuterol sulfate HFA 90 mcg/actua tion aerosol inhaler 2021 022 [facility], [address] [place] [address], [address], 05/03/2022 09:52:01 benzonata te 200 mg capsule [address], [address] [place] [address], [address], 05/03/2022 09:36:06 Cipro 500 mg tablet [address], [address] [place] [address], [address], 05/03/2022 09:36:11 Patient TargetsNo targets recorded. Patient Instructions Encounter Date Encounter Id Patient Instructions Last Modified By Organization Details Last Modified Time 05/03/2022 [id number] pulse oximetry* [email or web address] Not available 05/03/2022 09:48:50 Reason for Referral Otolaryngologist & Acid Wash Operator Ref erral for Seasonal allergic rhinitis would like new allergy testing; the patient hasn't had testing done in over 20 years Referring Physician: Emili Aldrich, Internal Medicine, Encounter Date: 10/23/2022 Results Created Date Observation Date Name Description Value Unit Range Abnormal Flag Note LastModifiedBy Organization Detail LastModifiedTime 05/03/20 22 05/03/2022 pulse oxime try* Result 99 Not Available [facility] [address], [place], [address], 05/03/2022 09:39:08 05/16/20 22 05/16/2022 XR, chest , 2 view No observ ation record ed. [email or web address] [facility] [address], [place], [address], 05/16/2022 14:13:21 11/09/19 24 11/09/2023 exerc ise stres s test No observ ation record ed. [email or web address] [facility] (Scheduling Dept) [address] [place] [address], [address], 11/09/2023 10:36:39 11/15/19 24 11/14/2023 US, echoc ardio gram No observ ation record ed. [address], [address], 11/16/2023 08:39:49 11/22/19 24 11/21/2023 elect romyo gram + nerve condu ction study No observ ation record ed. [email or web address] Not Available 2023 08:43:53 11/29/19 24 11/27/2023 pharm acolo gic nucle ar stres s test No observ ation [facility] [address] [place] [address], [address], 11/29/2023 13:04:09 12/03/19 24 12/03/2023 PFT, compl ete No observ ation record ed. [facility] (Genetics) [address] [place] [address], [address], 12/03/2023 08:48:18 12/03/19 24 12/03/2023 PFT, compl ete No observ ation record ed. [facility] [address], [place], [address], 12/26/2023 15:42:56 12/04/19 24 12/03/2023 CT, chest , w/o contr ast No observ ation record ed. [address], [address], 12/04/2023 12:24:09 Result Notes None recorded. Problems Name Problem SNOMED Code Status Onset Date Resolution Date Notes Provider Name and Address Organization Details Recorded Time Posttrau matic stress disorder 03033007 Active 2021 Not Available [facility] 3 03:59:47 Restless legs 46845465 Active 2021 Not Available [facility] 3 03:59:47 Fatigue 97978548 Active 2021 Not Available [facility] 3 03:59:48 Testoste jerrell level below referenc e range 596414540 Active 2021 Not Available [facility] 3 03:59:47 Depressi ve disorder 91006074 Active 2021 Not Available [facility] 3 03:59:47 COVID-19 531827837 Active 2022 BIJAN AUGUSTIN [address] [place], [address], [facility] 3 13:52:58 Seasonal allergic rhinitis 329243631 Active 2022 BIJAN AUGUSTIN [address] [place], [address], [facility] 3 09:31:41 Kidney stone 91195052 Active 2017 95- 96 also in 2020 Not Available [facility] 3 03:59:48 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 Not Available [facility] 3 03:59:48 Hypothyr oidism 92889963 Active 2017 Not Available [facility] 3 03:59:47 Asthma 174766622 Active 2017 Not Available [facility] 3 03:59:47 Allergic rhinitis 80301017 Active 2017 Not Available [facility] 3 03:59:47 Benign prostati c hyperpla lee 434715858 Active 2017 Lj Shah Not Available [facility] 3 03:59:47 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 Not Available [facility] 3 03:59:47 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 Not Available [facility] 3 03:59:47 Dyspnea 717366699 Active 2023 BIJAN AUGUSTIN [address] [place], [address], [facility] 4 09:12:00 Edema of lower extremit y 865397072 Active 2023 BIJAN AUGUSTIN [address] [place], [address], [facility] 4 09:13:38 Insomnia 885259868 Active 2023 BIJAN AUGUSTIN [address] [place], [address], [facility] 4 09:30:15 Cardiova scular stress test abnormal 426346949 Active 2023 BIJAN AUGUSTIN [address] [place], [address], [facility] 4 09:43:16 Problem Notes None recorded. Procedures Surgical History Date Name Laterality Status Provider Name and Address Organization Details Recorded Time 09/17/2017 I&D completed September YASMIN Bergeron [address] [facility], [place], [address], [place] [facility] 09/17/2017 16:40:40 Imaging Results Imaging Date Name Status LastModified by Organization Details LastModified Time 05/16/2022 XR, chest, 2 view completed [email or web address] [facility] [address], [place], [address], 05/16/2022 14:13:21 11/09/2023 exercise stress test completed [facility] (Scheduling Dept) [address] [place] [address], [address], 11/09/2023 10:36:39 11/14/2023 US, echocardiogram completed [address], [address], 11/16/2023 08:39:49 11/21/2023 electromyogram + nerve conduction study completed [facility] Information not available 11/23/2023 08:43:53 11/27/2023 pharmacologic nuclear stress test completed [facility] (Scheduling Dept) [address] [place] [address], [address], 11/29/2023 13:04:09 12/03/2023 PFT, complete completed [facility] (Genetics) [address] [place] [address], [address], 12/03/2023 08:48:18 12/03/2023 [facility]FT, [email or web address] [address], [place], [address], 12/26/2023 15:42:56 12/03/2023 CT, chest, w/o contrast completed [address], [address], 12/04/2023 12:24:09 Procedure Notes None recorded. Medical Equipment None Reported. Allergies Allergen ID Allergen Name Allergen Category Reaction Reaction Severity Criticality Documentation Date Start Date Code Code System Note Provider Name and Address Organization Details Recorded Time 824 Product containin g penicilli n (product) medicatio n Not available Not available Not available 09/17/2017 33928 8001 SNOMED Elva copeland [facility] 8 08:27:55 825 Vibramyci n medicatio n Not available Not available Not available 09/17/201734725 5 RxNorm Elva copeland [facility] 8 08:28:09 Medications Name Sig Start Date Stop Date Status Note LastModified by Organization Details LastModified Time prednisone 10 mg tablet Take 4 tablets every day by oral route for 7 days. 01/14 completed Not Available Not Available Not Available ropinirole 1 mg tablet Take 1 tablet every day by oral route at bedtime for 30 days. 10/23 completed Not Available Not Available Not Available atorvastati n 10 mg tablet Take 1 tablet every day by oral route in the evening for 30 days. 10/04 completed Not Available Not Available Not Available azithromyci n 250 mg tablet TAKE 2 TABLETS (500 MG) BY ORAL ROUTE ONCE DAILY FOR 1 DAY THEN 1 TABLET (250 MG) BY ORAL ROUTE ONCE DAILY FOR 4 DAYS 01/14 completed Not Available Not Available Not Available benzonatate 200 mg capsule Take 1 capsule 3 times a day by oral route as needed for 14 days. 05/03 completed Not Available Not Available Not Available ciprofloxac in 500 mg tablet Take 1 tablet every 12 hours by oral route for 7 days. 05/03 completed Not Available Not Available Not Available sulfamethox azole 800 mg-trimetho prim 160 mg tablet 12/15 completed Not Available Not Available Not Available levothyroxi ne 25 mcg tablet TAKE ONE TABLET BY MOUTH ONCE DAILY 05/03 completed Not Available Not Available Not Available Vitamin C 1,000 mg tablet Take 1 tablet twice a day by oral route. active Not Available Not Available No t Available tamsulosin 0.4 mg capsule TK 1 C PO QD active Not Available Not Available No t Available potassium citrate ER 10 mEq (1,080 mg) tablet,exte nded release Take 1 tablet 3 times a day by oral route as needed for 30 days. active Not Available Not Available No t Available levothyroxi ne 50 mcg tablet Take 1 tablet every day by oral route for 30 days. active Not Available Not Available No t Available triamcinolo ne acetonide 0.1 % topical ointment APPLY A SMALL AMOUNT TO THE AFFECTED AREA TWICE A DAY DIRECTED active Not Available Not Available No t Available gabapentin 300 mg capsule Take 1 capsule every day by oral route at bedtime for 30 days. 10/23 completed Not Available Not Available Not Available montelukast 10 mg tablet Take 1 tablet every day by oral route for 90 days. 01/14 completed Not Available Not Available Not Available fluocinonid e 0.05 % topical solution 10/19 completed Not Available Not Available Not Available levofloxaci n 750 mg tablet Take 1 tablet every day by oral route for 5 days. 10/09 completed Not Available Not Available Not Available methylpredn isolone 4 mg tablets in a dose pack 24 mg PO on day 1, then decr. by 4 mg/day x5 days per dose pack instructi ons 02/04 completed Not Available Not Available Not Available albuterol sulfate HFA 90 mcg/actuati on aerosol inhaler Inhale 2 puffs every 4 hours by inhalatio n route for 30 days. active Not Available Not Available No t Available escitalopra m 5 mg tablet TAKE ONE TABLET BY MOUTH ONCE DAILY 10/23 completed Not Available Not Available Not Available nitrofurant oin monohydrate /macrocryst als 100 mg capsule 06/14 completed Not Available Not Available Not Available Vitamin C One tablet once a day active Not Available Not Available No t Available saw palmetto Take one tablet once a day active Not Available Not Available No t Available vitamin A one tablet once a day 10/19 completed Not Available Not Available Not Available vitamin E Take one tablet once a day active Not Available Not Available No t Available vitamin B complex Take one tablet once a day active Not Available Not Available No t Available calcium-mag nesium-zinc Take one tablet once a day 10/23 completed Not Available Not Available Not Available selenium One tablet once a day active Not Available Not Available No t Available Vitamin D One tablet once a day 10/23 completed Not Available Not Available Not Available Kelp Take one tablet once a day active Not Available Not Available No t Available L-Tyrosine One tablet once a day 06/21 completed Not Available Not Available Not Available fexofenadin e One tablet once a day 10/04 completed Not Available Not Available Not Available Edina Oil-1000 1 tablet qd 10/23 completed Not Available Not Available Not Available Mucinex Take one tablet twice a day 10/04 completed Not Available Not Available Not Available Glucosamine -Chondrotin Take one tablet once a day active Not Available Not Available No t Available ProAir HFA inhale one puff prn 10/19 completed Not Available Not Available Not Available hydrochloro thiazide 12.5 mg tablet Take 1 tablet every day by oral route for 30 days. active Not Available Not Available No t Available peg 3350 240 gram-electr olytes 22.72 gram-6.72 g-5.84 g powdr for soln 10/09 completed Not Available Not Available Not Available Robitussin DM To Go Take 15ml twice a day 10/19 completed Not Available Not Available Not Available Fluzone Quad 60 mcg (15 mcg x 4)/0.5 mL intramuscul ar susp. 04/15 completed Not Available Not Available Not Available Flucelvax Quad (PF) 60 mcg (15 mcg x 4)/0.5 mL IM syringe VACCINATI ON ADMINISTE RED BY PHARMACIS T 06/14 completed Not Available Not Available Not Available Paxlovid 300 mg (150 mg x 2)-100 mg tablets in a dose pack TAKE 3 TABLETS BY MOUTH TWICE A DAY FOR 5 DAYS 10/23 completed Not Available Not Available Not Available Vitals Date Recorded Body height Body mass index (BMI) Body weight Heart rate Oxygen saturation Oxygen saturation in Arterial blood by Pulse oximetry Systolic blood pressure Diastolic blood pressure Provider Name and Address Organization Details Last Updated DateTime 2 176.53 cm 34.6 kg/m2 502904. 98 g 76 /min 99 % 99 % 108 mm[Hg] 72 mm[Hg] [facility] 2 09:40:20 Date Recorded Body height Body mass index (BMI) Body weight Heart rate Oxygen saturation Oxygen saturation in Arterial blood by Pulse oximetry Systolic blood pressure Diastolic blood pressure Provider Name and Address Organization Details Last Updated DateTime 3 176.53 cm 34.7 kg/m2 411520. 7 g 71 /min 100 % 100 % 110 mm[Hg] 62 mm[Hg] Mercy Johnson [facility] 3 09:07:21 Date Recorded Body weight Body mass index (BMI) Body height Heart rate Oxygen saturation Oxygen saturation in Arterial blood by Pulse oximetry Systolic blood pressure Diastolic blood pressure Provider Name and Address Organization Details Last Updated DateTime 4 215384. 46 g 34 kg/m2 176.53 cm 78 /min 98 % 98 % 124 mm[Hg] 72 mm[Hg] Kiley Vazquez [facility] 4 09:07:09 Social History Question Answer Notes LastModified by Organizat ion Details LastModified Time Tobacco Smoking Status Never Smoker Not Available [facility] 04/13/2020 03:36:24 Do You Have An Advance Directive? Yes [id number] Information not available 04/13/2020 What Is Your Level Of Alcohol Consumption? None [id number] Information not available 04/13/2020 Are You Blind Or Do You Have Difficulty Seeing? No [id number] Information not available 04/13/2020 What Is Your Level Of Caffeine Consumption? None [id number] Information not available 04/13/2020 How Much Tobacco Do You Chew? None [id number] Information not available 04/13/2020 Are You Currently Employed? Yes [id number] Information not available 04/13/2020 Are You Deaf Or Do You Have Serious Difficulty Hearing? No [id number] Information not available 04/13/2020 What Type Of Diet Are You Following? 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 4 [id number] Information not available 04/13/2020 On Those Days That You Engage In Moderate To Strenuous Exercise, How Many Minutes, On Average, Do You Exercise? 20 [id number] Information not available 04/13/2020 Are There Any Guns Present In Your Home? No [id number] Information not available 04/13/2020 Hard Of Hearing Or Deaf In One Or Both Ears? No Information not available 09/16/2018 Live Alone Or With Others? With Others Information not available 09/16/2018 What Was The Date Of Your Most Recent Tobacco Screening? 10/29/2023 [email or web address] Information not available 10/29/2023 How Many Children Do You Have? 0 [id number] Information not available 04/13/2020 Performs Monthly Self-breast Exam? No Information not available 09/16/2018 Seat Belts Used Routinely Yes Information not available 09/16/2018 Are You Sexually Active? Yes [id number] Information not available 04/13/2020 Smoke Alarm In Home Yes Information not available 09/16/2018 Are You Passively Exposed To Smoke? No Information not available 09/16/2018 How Much Tobacco Do You Smoke? No [id number] Information not available 04/13/2020 General Stress Level High Information not available 09/16/2018 Do You Use Sunscreen Routinely? No [id number] Information not available 04/13/2020 Do You Or Have You Ever Used Any Other Forms Of Tobacco Or Nicotine? No [email or web address] Information not available 10/19/2021 Sex: Unknown Functional Status Question Answer Note LastModified by Organizat ion Details LastModified Time Do you have difficulty walking or climbing stairs? No [id number] Information not available 04/13/2020 Are you able to walk? YESWOREST [id number] Information not available 04/13/2020 Do you have difficulty doing errands alone? No [id number] Information not available 04/13/2020 Are you able to care for yourself? Yes [id number] Information not available 04/13/2020 Do you have difficulty dressing or bathing? No [id number] Information not available 04/13/2020 What is your exercise level? Moderate [id number] Information not available 04/13/2020 Mental Status None recorded. Family History Relationship Description Onset Age of this Age Resolved Age Notes LastModified by Organization Details LastModified Time Father Alzheimer's disease 74 77 [email or web address] Not available 2018 15:18:36 Father Heart disease 60 [email or web address] Not available 2018 15:18:36 Mother Sleep disorder 70 [email or web address] Not available 2018 15:18:36 Brother Sleep disorder 55 [email or web address] Not available 2018 15:18:36 Brother Obesity 40 [email or web address] Not available 09/16/2018 15:18:36 Medical History Condition Response Coronary Artery Disease N Other N Gout N Blood Diseases N Kidney Stones Y Blood Transfusion N Breast Cancer N COPD N Depression N Lung Disease N Defects or Inherited Disease N Anxiety Disorder N Muscle, Joint, or Bone Problems N Obesity N Vision or Eye Problems N Arthritis N Polyps Y Infertility N Mental Disorder N Cancer Y Varicosities N Stroke N Endometriosis N Bladder or Kidney Problems Y High Cholesterol N Liver Disease N Fibromyalgia N Headaches N Kidney Disease N Allergies/Hayfever Y Heart Problems N Hospitalizations N Thyroid Problems N GI Problems N Skin Problems N Eating Disorder N Anemia N MRSA exposure N Constipation N Mental Illness N Ovarian Cancer N Diabetes N Seizures/Epilepsy N Tuberculosis N Congestive Heart Failure (CHF) N Eczema Y Diverticulitis N Abuse/Domestic Violence N Asthma Y Reflux/GERD N Hepatitis N Heart Disease N Pulmonary Embolism N Hypertension N Osteoporosis N Chicken Pox N Autism Spectrum Disorder (ASD) N Immunizations Vaccine Type Date Status Note Provider Nam e and Address Organization Details Recorded Time COVID-19, mRNA, LNP-S, PF, 30 mcg/0.3 mL dose 05/26/20 21 completed Not Available [facility] 07/07/2022 03:59:48 COVID-19, mRNA, LNP-S, PF, 30 mcg/0.3 mL dose 09/05/19 21 completed Not Available [facility] 07/07/2022 03:59:48 COVID-19, mRNA, LNP-S, PF, 30 mcg/0.3 mL dose 09/26/19 21 completed Not Available [facility] 07/07/2022 03:59:48 influenza, unspecified formulation 04/12/20 22 completed Not Available [facility] 07/07/2022 03:59:48 COVID-19, mRNA, LNP-S, bivalent, PF, 50 mcg/0.5 mL or 25mcg/0.25 mL dose 04/19/20 22 completed Not Available [facility] 07/07/2022 03:59:48 zoster live 08/10/19 14 completed Not Available [facility] 07/07/2022 03:59:48 Tdap 02/20/20 24 completed Kiley copeland [facility] 02/22/2024 08:13:55 SARS-COV-2 (COVID-19) vaccine, UNSPECIFIED 02/20/20 24 completed Kiley copeland [facility] 02/22/2024 08:14:36 influenza, unspecified formulation 02/20/20 24 completed Kiley copeland [facility] 02/22/2024 08:14:55 Respiratory syncytial virus (RSV) MAB, unspecified 03/25/20 24 completed BIJAN AUGUSTIN [address] [place], [address], [facility] 03/26/2024 06:07:34 Pneumococcal conjugate PCV20, polysaccharide [id number] conjugate, adjuvant, PF 03/25/20 24 completed BIJAN AUGUSTIN [address] [place], [address], [facility] 03/26/2024 06:07:58 Influenza, split virus, quadrivalent, preservative 04/10/20 19 completed Not Available [facility] 07/07/2022 03:59:48 Influenza, split virus, quadrivalent, preservative 04/29/20 20 completed Not Available [facility] 07/07/2022 03:59:48 Tdap 09/26/19 13 completed Not Available [facility] 07/07/2022 03:59:48 Past Encounters Encounter ID Performer Location Encounter Start Date Encounter Closed Date Diagnosis/Indication Diagnosis SNOMED-CT Code Diagnosis ICD10 Code Diagnosis Note [id number] September YASMIN Bergeron [facility] [address] [facility],[place] [address] 09/17/2017 15:43:13 09/17/2017 16:51:30 Asthma 761101722 J45.909 Chronic cough 86387769 R 05 likely related to asthma/chr onic post nasal drip treatment as above Chronic sinusitis 746598 00 J32.9 [place] [id number] L70.0 i&d successful , patient tolerated well. proper care instructed [id number] [facility] [address] [facility],[place] [address] 01/14/2018 13:36:34 01/14/2018 14:20:32 Contact dermatitis caused by urushiol from [facility] [id number] L25.5 Asthma 336666286 J45.90 9 quiet Hypothyroidism 47955163 E03.9 Hypercholesterolemia 136 78414 E78.00 Benign pro static hyperplasia 063972718 N40.0 7174 [facility] [address] [place] [address] 02/04/2018 15:40:30 02/04/2018 16:34:13 Microscopic hematuria 536933988 R31.21 in setting of h/o kidney stones has urologist has appointmen t 02/[address] 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 will order lab and have it sent to dr barnes [id number] Nickolas Riddle [facility] [address] [facility],[place] [address] 10/09/2018 15:59:48 10/09/2018 16:49:44 Hypothyroidism 29365193 E03.9 will start on low dose levothyrox as this is a subclinica l hypothyroi d presentati on and with stress of the treatments coming up belive we can assist him with a low dose and rechk in a month or two Hypotestosteronism 32536 85778 104 R79.89 will rechk lab as needed Benign pro static hyperplasia 024941207 N40.0 currentyl not taking any med Asthma 298222750 J45.90 9 quiet [id number] Nickolas Riddle [facility] [address] [facility],[place] [address] 11/20/2018 15:56:24 11/20/2018 16:18:49 Hypothyroidism 72900409 E03.9 will start on low dose levothyrox as this is a subclinica l hypothyroi d presentati on and with stress of the treatments coming up belive we can assist him with a low dose and rechk in a month or two Hypotestosteronism 49924 20974 104 R79.89 will rechk lab as needed Benign pro static hyperplasia 149917706 N40.0 currentyl not taking any med [id number] Nickolas Riddle DO [facility] [address] [facility],[place] [address] 04/15/2019 08:58:11 04/15/2019 09:43:59 Hypothyroidism 77958536 E03.9 Adult heal th examination 887605207 Z00.00 doing well no major findings Rib pain 046702202 R07.8 1 [id number] BIJAN AUGUSTIN [facility] [address] [facility],[place] [address] 11/18/2019 08:55:55 11/18/2019 10:47:38 Hypothyroidism 16647399 E03.9 Asthma 925192981 J45.90 9 Chest pain 35768724 R07. 9 will check echo and exercise stress to completely r/o cardiac related etiology will check TSH to r/o thyroid or in to see if he needs dose adjustment will f/u after labs and scans to go over everything [id number] BIJAN AUGUSTIN [facility] [address] [facility], [place] [address] 05/11/2020 09:23:30 05/12/2020 08:20:05 Fatigue 70782407 R53.83 most likely combo of stress and insomina with back pain and hemorrhoid pain Muscle pain 20217225 M79 .10 back pain and arm [id number] Nickolas Riddle DO [facility] [address] [facility],[place] [address] 06/14/2020 14:26:15 06/14/2020 15:37:34 Active or passive immunization 452200981 Z23 Adult heal th examination 652492502 Z00.00 doing well no major findings Asthma 833828471 J45.90 9 quiet Hypothyroidism 91046173 E03.9 Eczema 99945582 L30.9 Primary er ectile dysfunction 503521491 N52.9 89900 BIJAN AUGUSTIN [facility] [address] [facility],[place] [address] 10/04/2020 08:53:54 10/04/2020 09:12:25 Eczema 81835149 L30.9 will refill script Seborrheic keratosis 394 507340 L82.1 benign SK on low back Hypothyroidism 54702017 E03.9 will recheck TSH Fatigue 29652907 R53.83 will check on labs to see if any underlying diff causing the fatigue the patient is experienci ng [id number] BIJAN AUGUSTIN [facility] [address] [facility], [place] [address] 06/17/2021 09:03:57 06/17/2021 16:13:20 Posttraumatic stress disorder 94943913 F43.12 will fu in one month to check patient's progress [id number] BIJAN AUGUSTIN [facility] [address] [facility], [place] [address] 10/19/2021 09:02:53 10/19/2021 09:51:25 Active or passive immunization 159075471 Z23 advised 10/19/21 Adult [facility] th examination 569753262 Z00.00 BP is stable; BP excellent Restless legs 78196297 G 25.81 will trial ropinirole for restless leg syndrome Fatigue 94546006 R53.83 will check on labs to see if any underlying diff causing the fatigue the patient is experienci ng Hypothyroidism 84411333 E03.8 will recheck TSH Posttrauma tic stress disorder 99235140 F43.12 will fu in one month to check patient's progress [id number] BIJAN AUGUSTIN [facility] [address] [facility] [address] [address] 01/02/2022 10:35:46 01/02/2022 15:30:32 Acute bronchitis 02026327 J20.8 will start on abx and cough suppressen [place] [id number] BIJAN AUGUSTIN [facility] [address] [facility] [address] [address] 05/03/2022 09:33:24 05/03/2022 11:55:28 Asthma 031609297 J45.30 stablereso lved from previous flare up a few weeks ago due to a URI Depressive disorder 5915 9003 F32.0 stablehasn 't used to lexapro since his mood has been stable Active or passive immunization 057528795 Z23 due for the pneumonia vaccine [id number] [facility] AUGUSTIN [facility] [address] [facility] [address] [address] 07/17/2022 09:34:50 07/17/2022 14:52:08 COVID-19 416826808 U07.1 will start on paxlovidin the five days; test positive on Sat [id number] BIJAN AUGUSTIN [facility] [address] [facility] [address] [address] 10/23/2022 08:58:25 10/23/2022 09:50:22 Active or passive immunization 049485406 Z23 due for the pneumonia vaccine Adult heal th examination 651402976 Z00.00 BP is stable; BP excellent Depressive disorder 3548 9007 F32.0 stablehasn 't used to lexapro since his mood has been stable Seasonal a llergic rhinitis 934131361 J30.2 will set up with an senior network security engineer [id number] BIJAN AUGUSTIN [facility] [address],[place] [address] 10/29/2023 08:59:17 10/29/2023 10:00:14 Active or passive immunization 674309208 Z23 advised Adult heal th examination 906304805 Z00.00 BP is stable; BP excellent Depression screening 171 997158 Z13.31 negative Dyspnea 798532599 R06.[address] and PFT Depressive disorder 3548 9007 F32.0 stablehasn 't used to lexapro since his mood has been stable Edema of l ower extremity 634875359 R60.0 agreed to US echo and exercise stress testd Tick bite 35680005 W57.X XXA agreed will set up with Restless legs 30669244 G 25.81 will trial ropinirole for restless leg syndromeca n increase his mag to 600 mg BUD Insomnia 400287466 G47.0 0 discussed options Asthma 944165966 J45.30 stablereso lved from previous flare up a few weeks ago due to a URI Health Concerns Section Related Observation LastModified by Organization Detai ls LastModified Time None Recorded Concern Status LastModified by Organization Details LastModified Time None Recorded Advance Directives Directive Y: Payers Encounter Date Sequence Insurance Name Policy Number Policy Freeman Covered Member ID Freeman Member ID Guarantor Name 01/02/2022 1 [facility] [id number] 1 Lionel C C Jarvis [id number] Lionel Jarvis 05/03/2022 1 [facility] [id number] 1 Lionel C C Jarvis [id number] Lionel Jarvis 07/17/2022 1 [facility] [id number] 1 Lionel C C Jarvis [id number] Lionel Jarvis 10/23/2022 1 [facility] [id number] 1 Lionel C C Jarvis [id number] Lionel Jarvis 10/29/[address] [place] [address] [id number] 1 Lionel Axel Jarvis [id number] Lionel Jarvis Notes Date Note Type Note Provider Name a nd Address Organization Details Recorded Time 2 text/html c/o flu-like symptoms tele-med phone call, realtime audiopatient consents to phone call the patient reports that his came back from [place] with COVID-like/cold-like symptoms, she tested negative (three homes test and two PCR tests) the patient developed symptoms last sundayhe reports chest and nasal congestion, the patient reports that he feels it more left sideddry coughreports chest tightness and discomfort with deep breaths the patient denies fever and chills reports sore throat, left sidedswollen LNs, with LN tenderness BIJAN AUGUSTIN [address] [place], [address], [facility] 01/02/2022 15:24:32 2 text/html f/u asthma asthma: improved after recent URIneeds albuterol inhaler refill depressive: pingselian doctor listed in alert section at [facility] for [facility] for PTSD recent colonoscopy was normaldue in another 5 years due for a pneumonia vaccine kidney stones: patient is still seeing urologydiscussed his use of HTCZ, wants to talk about d/c itwill discuss with urology BIJAN AUGUSTIN [address] [place], [address], [facility] 05/03/2022 10:02:44 3 text/html c/o COVID positive tele-med phone callpt consents to phone call patient has covidis 66 y/o and has asthmaagreed to start paxlovid > within the time rangewill d/c the meds he's on from integrative medicinecan restart after the paxlovid BIJAN AUGUSTIN [address] [place], [address], [facility] 07/17/2022 13:57:26 3 text/html Annual WellnessReported bypatient.Diet and Nutrition:healthy diet; discussed vitamin and supplement use; discussed portion control; discussed maintaining calcium balance; discussed diet improvement Fracture Risk:no history of fractures; no recent explained fracture; no sudden unexplained fractures; no previous musculoskeletal injuries Physical Activity:exercises on a regular basis; recent increase in physical activity; good physical condition; discussed weightbearing activities; discussed exercise habits Additional Lifestyle Factors:no tobacco use; drinks alcohol (mild-moderate); discussed safe sex and STI risk; preconception/concepti on counseling given Depression Risk:never feels sad, empty, or tearful; no loss of interest in activities; no significant changes in weight; no sleep disturbances or insomnia; no agitation; no loss of energy; no feelings of worthlessness or guilt; no thoughts of suicide; no history of depression; no history of mood disorders Hearing:no loss of hearing Vision:no vision problems recovered from COVID back in July which he has recovered from without any watcher automat long goods repercussionsdoes reports manual work or very active; the patient does report fatigue and sobno other symptoms concerning for cardiopulmonary conditions that aren't already documented BP is excellent discussed Thyroid; monitored by integrative medicinethe pt is going to go on a trial of naltrexone with them and peptide treatment the pt still has restless legsdrinking enough fluidcurrently on magnesium BIJAN AUGUSTIN [address] [place] [address], [address], [facility] 10/23/2022 09:38:56 4 text/html Annual WellnessReported bypatient.Diet and Nutrition:healthy diet; discussed vitamin and supplement use; discussed portion control; discussed maintaining calcium balance; discussed diet improvement Fracture Risk:no history of fractures; no recent explained fracture; no sudden unexplained fractures; no previous musculoskeletal injuries Physical Activity:exercises on a regular basis; recent increase in physical activity; good physical condition Additional Lifestyle Factors:no tobacco use; no alcohol intake; stopped drinking alcohol; no caffiene consumption Depression Risk:never feels sad, empty, or tearful; no loss of interest in activities; no significant changes in weight; no sleep disturbances or insomnia; no agitation; no loss of energy; no feelings of worthlessness or guilt; no thoughts of suicide; no history of depression; no history of mood disorders Hearing:no loss of hearing Vision:no vision problems the patient did have sob, breathing issues, 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
== END 2024-09-15 16:14 | disposition home or self-care (01) ==
LOC: HO.HPS 15:32
PROVIDERS: PCP Internal Medicine; Visit Provider Hospitalist
DX: J45.51 Severe persistent asthma with (acute) exacerbation (principal); J21.9 Acute bronchiolitis, unspecified; J40 Bronchitis, not specified as acute or chronic; J98.4 Other disorders of lung; R91.8 Other nonspecific abnormal finding of lung field
CPT/HCPCS: 99214

== ENCOUNTER → 2024-09-15 15:31 | Outpatient (BNVA) | payer OTHER, SELFPAY | PROVIDERS: PCP Internal Medicine; Visit Provider Hospitalist ==

== ENCOUNTER → 2024-12-11 15:03 | Outpatient (BNV) | payer OTHER, SELFPAY | PROVIDERS: Visit Provider Nurse Practitioner Family | DX: D72.820 Lymphocytosis (symptomatic) (principal) | CPT/HCPCS: 99204; 99213 ==

== ENCOUNTER 2025-01-22 15:26 | Outpatient (AMB) | payer OTHER, SELFPAY ==
[2025-01-22 15:27] VITALS: BP 124/56; PULSE 68; O2SAT 97; BMI 33.8
--- NOTE | 2025-01-22 15:27 | MHC.OFFVIS ---
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 He has worsening respiratory symptoms for the last several months. Noticing in the spring that he could not seem as well. He was also noticing increasing shortness of breath. Because of the significant dyspnea on exertion and cough he was evaluated by his primary care doctor. He had a full cardiac workup which apparently per report was okay. He did undergo pulmonary function studies which I personally the report demonstrating mild restrictive ventilatory defects. No evidence of any obstructive ventilatory defects at that time. Diffusing capacity also within normal limits. The patient did undergo a CT scan of the chest which I review the report. He had what appears to be significant amount of bronchiolitis throughout. Patient also had evidence of pneumonitis primarily in the right lower lobe and left upper lobe. Also had evidence of bronchitis some mucus debris in the airway. He does have significant rhonchi and wheezing on examination. He is bringing up phlegm on a regular basis. Therefore will going to go ahead and give him a nebulizer treatment and get a sputum culture for further analysis. He will need additional blood work. The patient is only on albuterol right now. He will need additional therapy to treat the amount of inflammation of the lower respiratory tract. We did talk about exposures. Denies any fumes or toxins. Denies any significant allergy exposure. Denies any exposure to mold or farms. Denies any birds. 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 He does have a history of Ravi Luis other autoimmune diseases. Will go ahead and test for any other inflammatory conditions at this time. 04/23/2024 the patient is here for a pulmonary follow-up visit. He is still having his cough. Still having some wheezing. The nebulizer has been helpful. He is still having some chest congestion. His cultures were negative for any infection. Still waiting for his mycobacterial cultures. Blood work demonstrated a slightly elevated BECCA which is likely nonsignificant and also demonstrated significant allergies specially to dust mites and also environmental allergies. The patient was not able to start the Advair HFA because he did not receive the pharmacy. Was sent but likely it was not approved by his insurance. We never got a call. Will had and set him Wixela which is covered. 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 If at any point the powdered inhaler bothers his voice will go ahead and do a prior approval to get him a HFA inhaler such as Advair HFA. In the meantime the patient should continue the nebulizer. He never got the Acapella valve. I will go ahead and requested again from the [employer]. He did bring a CD and I will take a look at the images to see the degree of bronchiolitis. He is going to work on getting hypoallergenic covers and also maybe removing the carpus out of his bedroom. The patient will return 6-8 weeks. If he has no better or if he is having a reaction to the medication he will call for an earlier evaluation or change. 06/17/2024 the patient is here for a pulmonary follow-up visit. Overall the patient has been doing better. He is still having chest congestion though. He has not started the Wixela because he has the consult coming up and he does not want a message voice for the consult. Then afterwards he will try the Wixela. In the meantime the patient did bring the CD in for a CT scan that he had back in 11/29/2023 this was done at [facility]. We did personally reviewed. He had some evidence of bronchiolitis with a minimal and did have pulmonary nodules in addition to some inflammatory areas suggesting pneumonitis. Also had evidence of chronic bronchitis with thickening of the airways and dilation of the airways. This is mainly at the bases. We were able to teach him how to use the Acapella valve use that in the office and was able to bring up some phlegm. He is going to do it again at home and try to continue to use it after the nebulized therapy for chest physical therapy. He is going to try to bring a sputum sample to the laboratory for further analysis. We can also consider bronchoscopy but I would be very cautious with the vocal cords specially with having to go through the vocal cords for an airway survey. Will plan to repeat the CT scan in 3 months to follow-up with his pulmonary nodules have not follow-up then. In the meantime he can start Wixela after his cancer to see this helpful. Once we get a sputum culture we can decide if we can treat him we have to be very careful with significant Ravi Luis reaction that he had previously. 09/15/2024 the patient is here for a pulmonary follow-up visit. Overall the patient has been doing fair. Apparently he was exposed to a sick contact and started developing UR like symptoms and now developing worsening chest tightness and cough. The mucus is yellowish in color. Moderate severity. He has been using the Xopenex. Initially he had started the Wixela. But when he got sick he was under the impression that he could not using during an acute flare-up so he stopped the medicine. I did reassure him that he should continue the medicine that although it is not meant to be used for acute therapy he should continue a during an acute flare up to minimize symptoms. The patient did have a CT scan of the chest as well before he got sick back in July demonstrating bronchiolitis in the right lower lobe suggesting the possibility of micro aspirations in addition to nodular ground-glass nodular densities in the upper lung zones suggesting some degree of inflammation. This brings up the question of a hypersensitivity type of reaction. Sarcoid is also in differential. His blood work was all negative except for his significant allergies and also a slight elevation in the BECCA does likely to be a false-positive. For now though will go ahead and request a barium swallow based on the possibility of micro aspirations. The patient should also sleep elevated. Because of the wheezing he will be prescribed a Medrol Cristofer to try helping with the wheezing. He can continue with Wixela at least on a daily basis. He can use the Xopenex as needed. And will sleep elevated. If his symptoms are not getting better we did talk about antibiotic therapies. Apparently he has taken a Z-Cristofer in the past any tolerated that well although we see erythromycin based medications and allergies this for the patient is not correct. Therefore I will remove azithromycin and erythromycin from his allergies at this time. 01/22/2025 the patient is here for pulmonary follow-up visit. Overall the patient has been doing fair. He was up in [place] and he had a hard time with the breathing. Apparently due to the air quality. He had to use his nebulizer which was probably helpful. He is just congestion is a little better although still bringing some phlegm. He recently completed a course of azithromycin and steroids. He has a hard time with the Wixela because it is powder. He does need some respiratory medications. I did provide her a spacer and will order some Symbicort to see if we can not tolerate a little bit better. 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 We did talk about the Pseudomonas. 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 The patient likely has a component of micro aspirations into the lungs resulting in the recurrent infections and chronic bronchitis. He does sleep elevated and will do a barium swallow to assess any evidence of any reflux disease. We did review his last CT scan of the chest that he had back in October. No significant evidence of treating budding any further appreciated which is reassuring. He does have some scarring at the right base likely from an old infection and evidence of chronic bronchitis. Will plan to repeat his pulmonary function studies, barium swallow, blood work and will see his response to the new inhaler during the next visit in 3 months. [facility] Medical History Kidney stones Pulmonary nodules Asthma Bronchitis Pneumonitis Bronchiolitis Surgical History [place] teeth extracted Family History Brother Colorectal cancer Maternal Grandmother Diabetes Father Heart attack Mother Heart problem Cancer of kidney Sister HTN (hypertension) Social History Household Members: Spouse Patient Tobacco Use Status: Never used Tobacco service: No Current occupational status: employed Review of Systems Const Denies fever(s) ENT Reports change in voice and Reports sore throat Card Denies chest pain Resp Reports chest congestion, Reports cough and Reports wheezing GI Reports no additional complaints Musc Reports no additional complaints Skin/Breast Denies rash Neuro Reports no additional complaints Kana/Lymph Reports no additional complaints Aller/Immun Reports wheezing Physical Exam Vital Signs: Last Vital Signs Pulse 68 01/22/25 15:27 BP 124/56 L 01/22/25 15:27 Pulse Ox 97 01/22/25 15:27 Oxygen Delivery Method Room Air 01/22/25 15:27 BMI result Body Mass Index 33.8 Const General: comfortable Neck Neck: Yes supple Chest Chest palpation & inspection: normal inspection of the chest Resp Effort & Inspection: normal respiratory effort and prolonged expiratory phase Auscultation: rhonchi, wheezes and diminished lung sounds Cardio Heart sounds: S1 normal heart sound present and S2 normal heart sound present GI Palpation (GI): Soft to palpation Skin General skin exam: no rashes or lesions noted Extrem General: Yes no clubbing, cyanosis or edema Assessment & Plan Assessment & Plan (1) Asthma: Code(s): J45.909 - Unspecified asthma, uncomplicated Category: Medical Qualifiers: Asthma complication type: with acute exacerbation Asthma persistence: persistent Asthma severity: severe Qualified Code(s): J45.51 - Severe persistent asthma with (acute) exacerbation (2) Bronchiolitis: Code(s): J21.9 - Acute bronchiolitis, unspecified Category: Medical (3) Bronchitis: Code(s): J40 - Bronchitis, not specified as acute or chronic Category: Medical (4) Pneumonitis: Code(s): J98.4 - Other disorders of lung Category: Medical (5) Pulmonary nodules: Code(s): R91.8 - Other nonspecific abnormal finding of lung field Category: Medical Plan stop Wixela daily start Symbicort PFTs Barium swallow WICHO nebulizer xopenex BID followed by CPT with acapella valve hypoallergenic covers repeat CT chest, better sputum cx +pseudomonas s/p treatment sleep elevated reflux diet consider bronchoscopy bloodwork will assess for [employer]olog[employer] F/U 3-4 months Orders: Orders [place] barium swallow 01/22/25 K21.9 - Gastro-esophageal reflux disease without esophagitis Immunoglobulins,IgG IgA IgM 01/22/25 J40 - Bronchitis, not specified as acute or chronic, J45.51 - Severe persistent asthma with (acute) exacerbation Erythrocyte Sedimentation Rate 01/22/25 J40 - Bronchitis, not specified as acute or chronic, J45.51 - Severe persistent asthma with (acute) exacerbation Complete Blood Count Auto Diff 01/22/25 J40 - Bronchitis, not specified as acute or chronic, J45.51 - Severe persistent asthma with (acute) exacerbation Immunoglobulin G Subclasses 01/22/25 J40 - Bronchitis, not specified as acute or chronic, J45.51 - Severe persistent asthma with (acute) exacerbation Immunoglobulin E 01/22/25 J40 - Bronchitis, not specified as acute or chronic, J45.51 - Severe persistent asthma with (acute) exacerbation Basic Metabolic Panel 01/22/25 J40 - Bronchitis, not specified as acute or chronic, J45.51 - Severe persistent asthma with (acute) exacerbation PFT pulmonary function test 01/22/25 J45.51 - Severe persistent asthma with (acute) exacerbation Medications: New budesonide-formoterol 160-4.5 mcg/actuation (Symbicort) 2 puffs inhalation BID 10.2 grams 11RF 30 days J44.89 - Other specified chronic obstructive pulmonary disease Coding Level of Care Code Est Pt Level 4 (52652) Complex EM visit Add On G2211 Diagnoses Severe persistent asthma with acute exacerbation J45.51 Asthma complication type: with acute exacerbation Asthma persistence: persistent Asthma severity: severe Bronchiolitis J21.9 Bronchitis J40 Pneumonitis J98.4 Pulmonary nodules R91.8 Time Spent (min) 18
--- OUTSIDE RECORDS SUMMARY | 2025-01-22 15:49 | XMS_ITS | Encounter Summary ---
Author Organization [facility] Address [address] [facility] [address] [place] [address] Phone Care Team Providers Care Transition Teacher Name Role Phone Nickolas Riddle DO Unavailable Theo Proctor MD Unavailable + [phone] Adam Gauthier MD Unavailable [phone] Nickolas Riddle DO Primary Care Provider [phone] Nickolas Riddle DO Primary Care Provider [phone] Encounter Details Date Type Department Care Team (Late st Contact Info) Description 10/04/2018 Transcribe Orders [facility] [address] [place] [address] Nickolas Riddle DO [address] [place], [place] [id number] [email or web address] Myxedema heart disease (Primary Dx) Social History Tobacco Use Types Packs/Day Years Used Date Smoking Tobacco: Never Smokeless Tobacco: Never Alcohol Use Standard Drinks/Week Comments No 0 (1 standard drink = 0.6 oz pur e alcohol) Sex and Gender Information Value Date Recorded Sex Assigned at Male 02/24/2019 9:15 PM EDT Legal Sex Male 9:54 PM EDT Gender Identity Male 02/24/2019 9:15 PM EDT Sexual Orientation Not on file documented as of this encounter Plan of Treatment Not on file documented as of this encounter Results * (ABNORMAL) TSH with reflex (10/04/2018 8:34 AM EDT) TSH 5.22(H) 0.27 - 4.20 uIU/mL [facility] Blood 10/04/2018 8:34 AM EDT 10/04/2018 8:58 AM EDT us Nickolas A Barryda DO LAB BLOOD ORDERABLES Final Resul t Performing Organization Address City/[facility]/ZIP Co de Phone Number [address] [address] * T4, total (10/04/2018 8:34 AM EDT) THYROXINE 7.5 4.6 - 12.0 ug/dL [facility] Blood 10/04/2018 8:34 AM EDT 10/04/2018 8:58 AM EDT us Nickolas Riddle DO LAB BLOOD ORDERABLES Final Resul t Performing Organization Address City/[facility] Co de Phone Number [address] [address] documented in this encounter Visit Diagnoses Diagnosis Myxedema heart disease- Primary Unspecified hypothyroidism documented in this encounter Care Teams Transition Teacher Relationship Specialty Start Date End Date Nickolas Riddle DO PCP - General Internal Medicine 04/13/17 07/08/24 Nickolas Riddle DO [address] [place] [address] PCP - General Internal Medicine 07/09/24 Nickolas Riddle DO Historical LMR Provider 03/27/17 Theo Proctor MD [address] [place] [address] [email or web address] Historical LMR Provider 03/27/17 06/18/21 Adam Gauthier MD [address] [place] [address] Historical LMR Provider 03/27/17 documented as of this encounter Additional Source Comments The information contained in this document represents components of the legal health record. It is not the complete legal health record.[facility]
== END 2025-01-22 16:06 | disposition home or self-care (01) ==
LOC: HO.HPS 15:27
PROVIDERS: PCP Internal Medicine; Visit Provider Hospitalist
DX: J45.51 Severe persistent asthma with (acute) exacerbation (principal); J21.9 Acute bronchiolitis, unspecified; J40 Bronchitis, not specified as acute or chronic; J98.4 Other disorders of lung; R91.8 Other nonspecific abnormal finding of lung field
CPT/HCPCS: 99214; G2211

== ENCOUNTER 2025-02-05 08:49 | Outpatient (REF) | payer OTHER, SELFPAY ==
--- NOTE | ~2025-02-05 | US_ITS ---
CLINICAL HISTORY: RUQ tenderness, elevated bili, splenomegaly US abdomen complete Comparison: None provided Findings: The visualized pancreas is normal, pancreatic tail is obscured by bowel gas. The visualized aorta and inferior vena cava are normal caliber. The liver is not well seen, normal in size, right lobe length is 13.7 cm. Grossly normal in echogenicity, no discrete lesion is visualized in the imaged liver. No intrahepatic bile duct dilatation. The common duct is 2 mm in diameter. The gallbladder is normal. Negative sonographic Gunderson sign. The main portal vein is patent with antegrade flow. The right kidney is normal, 11.1 cm in length. The left kidney is normal in size and echogenicity, 11.4 cm in length and demonstrates 5 mm and 4 mm calyceal calculi in the lower pole. Simple cyst 1.7 cm in the lower pole. Avascular cyst 1.9 cm in the upper interpolar region, this cyst is not well seen due to deep location. No hydronephrosis. The spleen is normal, 9.9 cm in length. No free fluid in the abdomen. Impression: 1. Nonobstructing left nephrolithiasis. 2. Left renal cysts. 3. Otherwise unremarkable. This document has been electronically signed by: Janie Codrova MD on 02/05/2025 15:47:38
--- OUTSIDE RECORDS SUMMARY | 2025-02-05 09:36 | XMS_ITS | Encounter Summary ---
Author Organization [facility] Address [address] [place] [address] Phone Care Team Providers Care Bark Skinner Name Role Phone Nickolas Riddle DO Unavailable Theo Proctor MD Unavailable + [phone] Adam Gauthier MD Unavailable [phone] Nickolas Riddle DO Primary Care Provider [phone] Nickolas Riddle DO Primary Care Provider [phone] Encounter Details Date Type Department Care Team (Late st Contact Info) Description 12/14/[address] [facility], Ct Scan - [address] [address] Social History Tobacco Use Types Packs/Day Years [...] on file documented as of this encounter Visit Diagnoses Not on filedocumented in this encounter Care Teams Bark Skinner Relationship Specialty Start Date End Date Nickolas Riddle DO PCP - General Internal Medicine 04/13/17 07/08/24 Nickolas Riddle DO [address] [place] [address] [email or web address] PCP - General Internal Medicine 07/09/24 Nickolas Riddle DO [email or web address] Historical LMR Provider 03/27/17 Theo Proctor MD [address] [place] [address] [email or web address] Historical LMR Provider 03/27/17 06/18/21 Adam Gauthier MD [address] [place] [address] Historical LMR Provider 03/27/17 documented as of this encounter Additional Source Comments The information contained in this document represents components of the legal health record. It is not the complete legal health record.[facility]
--- OUTSIDE RECORDS SUMMARY | 2025-02-05 09:36 | XMS_ITS | Encounter Summary ---
Author Organization [facility] Address [address] [place] [address] Phone Care Team Providers Care Polygraph Examiner Name Role Phone Nickolas Riddle Unavailable Theo Proctor MD Unavailable [phone] Adam Gauthier MD Unavailable [phone] Nickolas Riddle DO Primary Care Provider [phone] Nickolas Riddle DO Primary Care Provider [phone] Encounter Details Date Type Department Care Team (Latest Contact Info) Description 02/05/2018 Transcribe Orders [facility] [address] [place] [address] Collette Bergeron PA-C [address] [place] [address] Male hypogonadism (Primary Dx); Restless legs; Screening for condition Social History Tobacco Use Types Packs/Day Years Used Date Smoking Tobacco: Never Assessed Sex and Gender Information Value Date Recorded Sex Assigned at Male 02/24/2019 9:15 PM EDT Legal Sex Male 9:54 PM EDT Gender Identity Male 02/24/2019 9:15 PM EDT Sexual Orientation Not on file documented as of this encounter Plan of Treatment Not on file documented as of this encounter Results * Testosterone, total and free (02/05/2018 8:10 AM EDT) FREE TESTOSTERONE 6.20 3.67 - 13.9 ng/dL [facility] Comment: (NOTE) ADDITIONAL INFORMATION Testing performed by [facility]. This test was developed and its performance characteristics determined by [facility] in a manner consistent with CLIA requirements. This test has not been cleared or approved by the U.S. Food and Drug Administration. TESTOSTERONE, TOTAL 310 240 - 950 ng/dL [facility] Comment: (NOTE) ADDITIONAL INFORMATION Testing performed by Liquid Chromatography-Tandem Mass Spectrometry (LC-MS/MS). This test was developed and its performance characteristics determined by [facility] in a manner consistent with CLIA requirements. This test has not been cleared or approved by the U.S. Food and Drug Administration. Blood 02/05/2018 8:10 AM EDT 02/05/2018 8:20 AM EDT September E[facility]a [facility] BLOOD ORDERABLES Final R esult Performing Organization Address City/[facility]/ZIP Co de Phone Number [facility] [address] [place] [address] * Hepatitis C antibody, qualitative (02/05/2018 8:10 AM EDT) HCV Negative Negative [facility] Comment: This is a screening test and should be confirmed with molecular testing Blood 02/05/2018 8:10 AM EDT 02/05/2018 8:20 AM EDT Collette Elyssa [facility] LAB BLOOD ORDERABLES Final R esult Performing Organization Address City/[facility]/ZIP Co de Phone Number [facility] [address] [place] [address] * Iron and iron binding capacity (02/05/2018 8:10 AM EDT) IRON 81 45 - 160 ug/dL [facility] IRON BINDING CAPACITY 236 228 - 428 ug/dL [facility] TRANSFERRIN SATURAT. 34 20 - 55 % [facility] Blood 02/05/2018 8:10 AM EDT 02/05/2018 8:20 AM EDT September Elyssa [facility] LAB BLOOD ORDERABLES Final R esult [facility] [address] [place] [address] documented in this encounter Visit Diagnoses Diagnosis Male hypogonadism- Primary Other testicular hypofunction Restless legs Restless legs syndrome (RLS) Screening for condition Screening for unspecified condition documented in this encounter Care Teams Polygraph Examiner Relationship Specialty Start Date End Date Nickolas Riddle DO PCP - General Internal Medicine 04/13/17 07/08/24 Nickolas Riddle DO [address] [place] [address] PCP - General Internal Medicine 07/09/24 Nickolas Riddle DO Historical LMR Provider 03/27/17 Theo Proctor MD [address] [place] [phone] [email or web address] Historical LMR Provider 03/27/17 06/18/21 Adam Gauthier MD [address] [place] [address] Historical LMR Provider 03/27/17 documented as of this encounter Additional Source Comments The information contained in this document represents components of the legal health record. It is not the complete legal health record.[facility]
--- OUTSIDE RECORDS SUMMARY | 2025-02-05 09:36 | XMS_ITS | Encounter Summary ---
Author Organization [facility] Address [address] [facility] [address] [place] [address] Phone Care Team Providers Care Warehouse Helper Name Role Phone BarryNickolas lake Unavailable Theo Proctor MD Unavailable + [phone] Adam Gauthier MD Unavailable [phone] Nickolas Riddle DO Primary Care Provider [phone] Nickolas Riddle DO Primary Care Provider [phone] Encounter Details Date Type Department Care Team (Latest Contact Info) Description 11/25/2019 Transcribe Orders [facility] [address] [place] [address] [id number] Emili Aldrich PA [address] [place] [address] [address] [place], [place] [id number] Nonspecific abnormal results of liver function study (Primary Dx) Social History Tobacco Use Types [...] documented as of this encounter Results * LFTs (hepatic panel) (11/25/2019 9:24 AM EDT) ALKALINE PHOSPHATASE 110 39 - 117 U/L [facility] TOTAL BILIRUBIN 0.5 0.0 - 1.2 mg/dL [facility] DIRECT BILIRUBIN <0.2 0 - 0.3 mg/dL [facility] Bilirubin (Indirect) NOT CALCULATED 0 - 1.5 mg/dL [facility] AST 28 0 - 37 U/L [facility] ALT 32 0 - 40 U/L [facility] TOTAL PROTEIN 7.2 6.5 - 8.0 g/dL [facility] ALBUMIN 4.3 3.9 - 4.8 g/dL [facility] GLOBULIN 2.9 1 - 4.8 g/dL [facility] A/G Ratio 1.48 1.00 - 4.80 RATIO [facility] Blood 11/25/2019 9:24 AM EDT 11/25/2019 10:21 AM EDT Emili [facility]AKK[facility] BLOOD ORDERABLES Final Result Performing Organization Address City/State/[facility] Co de Phone Number [address] [address] documented in this encounter Visit Diagnoses Diagnosis Nonspecific abnormal results of liver function study- Primary documented in this encounter Care Teams Warehouse Helper Relationship Specialty Start Date End Date Nickolas Riddle DO PCP - General Internal Medicine 04/13/17 07/08/24 Nickolas Riddle DO [address] [place] [address] PCP - General Internal Medicine 07/09/24 Nickolas Riddle DO Historical LMR Provider 03/27/17 Theo Proctor MD [address] [place] [id number] [email or web address] Historical LMR Provider 03/27/17 06/18/21 Adam Gauthier MD [address] [place] [address] Historical LMR Provider 03/27/17 documented as of this encounter Additional Source Comments The information contained in this document represents components of the legal health record. It is not the complete legal health record.[facility]
--- OUTSIDE RECORDS SUMMARY | 2025-02-05 09:36 | XMS_ITS | Encounter Summary ---
Author Organization [facility] Address [address] [facility] [address] [place] [address] Phone Care Team Providers Care Painter And Decorator Name Role Phone BarryNickolas lake Unavailable Theo Proctor MD Unavailable + [phone] Adam Gauthier MD Unavailable [phone] Nickolas Riddle DO Primary Care Provider [phone] Nickolas Riddle DO Primary Care Provider [phone] Encounter Details Date Type Department Care Team (Latest Contact Info) Description 11/19/2019 Transcribe Orders [facility] [address] [place] [id number] Emili Aldrich PA [address] [place] [address] [address] [place], [place] [id number] Hypothyroidism, unspecified type (Primary Dx); Chest pain, unspecified type Social History Tobacco Use Types Packs/Day Years [...] documented as of this encounter Results * PSA (screening) (11/19/2019 7:53 AM EDT) PSA 1.42 0 - 4.00 ng/mL [facility] Blood 11/19/2019 7:53 AM EDT 11/19/2019 10:25 AM EDT us Emili THAKK[facility] BLOOD ORDERABLES Final Result Performing Organization Address City/[facility]/ZIP Co de Phone Number [address] [address] * (ABNORMAL) Lipid panel (11/19/2019 7:53 AM EDT) HDL 38 mg/dL [facility] Comment: Interpretation <40 mg/dL: Low HDL cholesterol (major risk factor for CHD) Greater than or equal to 60 mg/dL: High HDL cholesterol ( negative risk factor for CHD) HDL - cholesterol is affected by a number of factors, e.g. smoking, excerise, hormones, sex and age. CHOLESTEROL 221 0 - 240 mg/dL [facility] TRIGLYCERIDES 259(H) 30 - 160 mg/dL [facility] LDL 131(H) 50 - 129 mg/dL [facility] Comment: LDL levels in terms of risk for coronary heart disease: <100 mg/dL: Optimal 100-129 mg/dL: Near or above optimal 130-159 mg/dL: Borderline high 160-189 mg/dL: High >190 mg/dL: Very High CARDIAC RISK RATIO 5.8(H) 3.4 - 5.0 [facility] Blood 11/19/2019 7:53 AM EDT 11/19/2019 10:26 AM EDT Emili THAKK[facility] BLOOD ORDERABLES Final Result Performing Organization Address City/[facility]/ZIP Co de Phone Number [address] [address] * 25-OH vitamin D (11/19/2019 7:53 AM EDT) 25 [place] VIT D (TOTAL) 33 30 - 60 ng/mL [facility] Blood 11/19/2019 7:53 AM EDT 11/19/2019 10:26 AM EDT us Emili [facility]AKK[facility] BLOOD ORDERABLES Final Result [address] [address] * (ABNORMAL) Comprehensive metabolic panel (11/19/2019 7:53 AM EDT) SODIUM 142 133 - 146 mmol/L [facility] POTASSIUM 4.2 3.3 - 5.1 mmol/L [facility] CHLORIDE 102 96 - 108 mmol/L [facility] CO2 29 21 - 35 mmol/L [facility] BUN 22(H) 6 - 19 mg/dL [facility] CREATININE 0.90 0.5 - 1.5 mg/dL [facility] GLUCOSE 97 70 - 99 mg/dL [facility] ALBUMIN 4.3 3.9 - 4.8 g/dL [facility] TOTAL PROTEIN 7.1 6.5 - 8.0 g/dL [facility] CALCIUM 9.4 8.4 - 10.3 mg/dL [facility] ALKALINE PHOSPHATASE 113 39 - 117 U/L [facility] TOTAL BILIRUBIN 0.7 0.0 - 1.2 mg/dL [facility] AST 50(H) 0 - 37 U/L [facility] ALT 50(H) 0 - 40 U/L [facility] GLOBULIN 2.8 1 - 4.8 g/dL [facility] EGFR 91 >59 mL/min/1.7 3m2 [facility] Comment:If patient is black, multiply result by 1.159. Estimated glomerular filtration rate calculated using the CKD-EPI equation. ANION GAP 15 10 - 20 mmol/L [facility] Blood 11/19/2019 7:53 AM EDT 11/19/2019 10:26 AM EDT us Emili [facility]AKK[facility] BLOOD ORDERABLES Final Result [address] [address] * (ABNORMAL) CBC and differential (11/19/2019 7:53 AM EDT) WBC 6.58 4.00 - 11.00 K/uL [facility] Comment:Note Reference Range updates to all CBC and Differential results. RBC 4.74 3.90 - 5.69 M/uL [facility] HGB 14.8 12.4 - 17.3 g/dL [facility] Comment:Note updated Referen ce Ranges for all CBC and Differential results. HCT 42.2 37.0 - 51.0 % [facility] PLT 158 140 - 430 K/uL [facility] MCV 89.0 78.0 - 97.0 fL [facility] MCH 31.2 25.0 - 33.0 pg [facility] MCHC 35.1 32.0 - 36.0 g/dL [facility] RDW 13.2 11.0 - 15.0 % [facility] MPV 13.2(H) 8.4 - 12.8 fl [facility] NRBC 0.00 0 /100 WBCs [facility] ABSOLUTE NRBC 0.00 0 K/uL [facility] DIFF METHOD Auto [facility] NEUTS 51.0 43.0 - 75.0 % [facility] LYMPHS 32.2 18.2 - 47.4 % [facility] MONOS 8.1 4.00 - 11.00 % [facility] EOS 7.4 0.0 - 8.0 % [facility] BASOS 1.1 0.0 - 2.0 % [facility] Granulocytes, immature (%) 0.2 0.0 - 0.9 % [facility] ABSOLUTE NEUTS 3.36 1.80 - 7.70 K/uL [facility] ABSOLUTE LYMPHS 2.12 1.00 - 3.10 K/uL [facility] ABSOLUTE MONOS 0.53 0.20 - 0.80 K/uL [facility] ABSOLUTE EOS 0.49 0.00 - 0.80 K/uL [facility] ABSOLUTE BASOS 0.07 0.00 - 0.09 K/uL [facility] Granulocytes, immature 0.01 0.00 - 0.05 K/uL [facility] Blood 11/19/2019 7:53 AM EDT 11/19/2019 10:26 AM EDT Emili [facility] BLOOD ORDERABLES Final Result [facility] [address] [place] [address] documented in this encounter Visit Diagnoses Diagnosis Hypothyroidism, unspecified type- Primary Chest pain, unspecified type documented in this encounter Care Teams Painter And Decorator Relationship Specialty Start Date End Date Nickolas Riddle DO PCP - General Internal Medicine 04/13/17 07/08/24 Nickolas Riddle DO [address] [place] [address] PCP - General Internal Medicine 07/09/24 Nickolas Riddle DO Historical LMR Provider 03/27/17 Theo Proctor MD [address] [place] [id number] [email or web address] Historical LMR Provider 03/27/17 06/18/21 Adam Gauthier MD [address] [place] [id number] Historical LMR Provider 03/27/17 documented as of this encounter Additional Source Comments The information contained in this document represents components of the legal health record. It is not the complete legal health record.[facility]
--- OUTSIDE RECORDS SUMMARY | 2025-02-05 09:36 | XMS_ITS | Clinical Summary ---
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 Active b complex vitamins capsule Take 1 capsule by mouth daily. Active glucosamine-cho ndroitin 500-400 mg Cap Take 2 capsules by mouth daily. Active ascorbic acid, vitamin C, (VITAMIN C) 500 MG tabletIndicatio ns:Takes 2 tabs daily Take 1,000 mg by mouth daily. Active vitamin E 400 UNIT capsule Take 400 Units by mouth daily. Active cholecalciferol (VITAMIN D3) 1,000 unit tablet Take 1,000 Units by mouth daily. Active salmon oiL-omega-3 fatty acids 1,000-200 mg Cap Take by mouth daily. Active flaxseed 1,000 mg Cap as directed Active iodine, kelp, 0.15 mg Tab 1 CAPSULE Active L-TYROSINE MISC L-Tyrosine One tablet once a day Active saw palmetto 160 mg Cap saw palmetto Take one tablet once a day Active selenium 100 mcg Tab selenium One tablet once a day Active tamsulosin (FLOMAX) 0.4 mg Cap Take 1 capsule (0.4 mg total) by mouth daily for 14 days. 14 capsule 12/14/2019 Active hydroCHLOROthia zide (MICROZIDE) 12.5 mg capsule Take 12.5 mg by mouth daily. Active levothyroxine (SYNTHROID,LEVO THROID) 25 MCG tablet Take 25 mcg by mouth every morning. Active potassium citrate (UROCIT-K) 10 mEq SR tablet Take 10 mEq by mouth 3 (three) times a day with meals. Active Active Problems Problem Noted Date Diagnosed Date Orthostatic hypotension 02/02/2020 Assessment & Plan (02/02/2020 9:13 AM EDT): We are going to have him make some blood pressure measurements I will see him thereafter in follow-up but his dizzy spells may be all due to with the combination of tamsulosin and hydrochlorthiazide Exertional asthma 02/02/2020 Assessment & Plan (02/02/2020 9:13 AM EDT): Under good control at this time. Chest pain 02/02/2020 Assessment & Plan (02/02/2020 9:12 AM EDT): As mentioned he did not have any significant obvious evidence of ischemia and there was no significant structural heart disease on the echo. His symptoms do not sound anginal in origin Encounters Date Type Department Care Team Description 11/18/2024 10:18 AM EDT - 11/18/2024 11:59 PM EDT Hospital Encounter [facility] [address] [place] [address] Emili Aldrich PA Discharge Disposition: Home or Self Care 11/18/2024 Transcribe Orders [facility] [address] [place] [id number] Emili Aldrich PA Screening for prostate cancer (Primary Dx); Central hypothyroidism; Routine general medical examination at a health care facility from Last 3 Months Immunizations Immunization Administration Dates Next Due COVID-19 (Pre-04/02) Moderna Vaccine, mRNA, PF 0 10/31/2021 COVID-19 (Pre) Pfizer Vaccine, mRNA, PF ,09/04/2020 COVID-19 (Pre) Pfizer Vaccine, mRNA, tonja-sucrose, PF 05/26/2021 Social History Tobacco Use Types Packs/Day Years Used Date Smoking Tobacco: Never Smokeless Tobacco: Never Tobacco Cessation:Counseling Given: Not Answered Alcohol Use Standard Drinks/Week Comments Not Currently 0 (1 standard drink = 0.6 oz pur e alcohol) none for 32 yrs Education Answer Date Recorded Are you interested in more education? Not on emmanuel e 10/06/2022 Are you concerned about learning? Not on file 10/06/2022 No 10/06/2022 No 10/06/2022 Digital Access Answer Date Recorded No 11/06/2022 No 11/06/2022 Reliable internet access at home? Not on file 11/06/2022 Device with a working camera? Not on file Sex and Gender Information Value Date Recorded Sex Assigned at Male 02/24/2019 9:15 PM EDT Legal Sex Male 9:54 PM EDT Gender Identity Male 02/24/2019 9:15 PM EDT Sexual Orientation Not on file Last Filed Vital Signs Vital Sign Reading Time Taken Comments Blood Pressure 136/50 11/27/2023 10:18 AM EDT Pulse 61 04/20/2022 2:15 PM EST Temperature 35.9 C (96.6 F) 04/20/2022 2:09 PM EST Respiratory Rate 20 04/20/2022 2:15 PM EST Oxygen Saturation 100% 04/20/2022 2:23 PM EST Inhaled Oxygen Concentration - - Weight 99.8 kg (220 lb) 04/19/2022 1:19 PM EST Height 177.8 cm (5' 10 ) 04/19/2022 1:32 PM EST Body Mass Index 31.57 04/19/2022 1:19 PM EST Plan of Treatment Health Maintenance Due Date Last Done Comments DEPRESSION SCREENING 1967 PNEUMOCOCCAL VACCINES (50+ years) (1 of 2 - PCV) 12/17/1974 COLOGUARD 12/17/2000 FIT TEST 12/17/2000 FOBT 12/17/2000 VIRTUAL COLONOSCOPY 12/17/2000 ZOSTER VACCINES (2 of 3) 11/06/2013 09/11/2013, 03/06/2013 RSV VACCINE (1 - Risk 60-74 years 1-dose series) 2015 Adult Td,Tdap Booster 09/25/2022 09/25/2012 SIGMOIDOSCOPY 10/11/2023 10/10/2018 COVID-19 VACCINE ( season) 2024 04/19/2022, 04/01/2022, 10/31/2021, Additional history exists POTASSIUM LEVEL 11/18/2025 11/18/2024, 09/10, 10/23/2022, Additional history exists TSH LEVEL 11/18/2025 11/18/2024, 01/10, 10/19/2021, Additional history exists SCREENING FOR DIABETES 11/19/2027 11/18/2024, 2024 LIPID PANEL 11/18/2029 11/18/2024, 10/09, 10/19/2021, Additional history exists COLONOSCOPY 04/20/2032 04/20/2022, 08/13/2018 COLORECTAL CANCER SCREENING 04/20/2032 HEPATITIS C SCREENING Completed 04/23/2019, 018 SMOKING STATUS SCREENING (Once After 26 Yrs) Completed 04/20/2022 HEPATITIS A VACCINES Aged Out No long er eligible based on patient's age to complete this topic HIB VACCINES Aged Out No longer eligi ble based on patient's age to complete this topic MENINGOCOCCAL VACCINES (ACWY) Aged Out No longer eligible based on patient's age to complete this topic MENINGOCOCCAL VACCINES (B) Aged Out N o longer eligible based on patient's age to complete this topic Medical Devices Not on file Procedures Procedure Name Priority Date/Time Associated Diagnosis Comments COMPREHENSIVE METABOLIC PANEL Routine 11/18/2024 10:18 AM EDT Central hypothyroidism Routine general medical examination at a health care facility CBC AND DIFFERENTIAL Routine 11/18/2024 10:18 AM EDT Central hypothyroidism Routine general medical examination at a health care facility LIPID PANEL Routine 11/18/2024 10:18 AM EDT Central hypothyroidism Routine general medical examination at a health care facility PSA (SCREENING) Routine 11/18/2024 10:18 AM EDT Screening for prostate cancer HEMOGLOBIN A1C Routine 11/18/2024 10:18 AM EDT Central hypothyroidism Routine general medical examination at a [facility] facility 25-OH VITAMIN D Routine 11/18/2024 10:18 AM EDT Central hypothyroidism Routine general medical examination at a [facility] care facility TSH Routine 11/18/2024 10:18 AM EDT Central hypothyroidism Routine general medical examination at a [facility] facility FREE T4 Routine 11/18/2024 10:18 AM EDT Central hypothyroidism Routine general medical examination at a [facility] facility ENDOSCOPY, COLON 04/20/2022 1:33 PM EST HEPATITIS C ANTIBODY, QUALITATIVE Routine 04/23/2019 8:58 AM EST Routine general medical examination at a [facility] facility ENDOSCOPY, SIGMOID 10/10/2018 10 :29 AM EDT from Last 3 Months or Most Recently Relevant to Health Maintenance Results * Comprehensive metabolic panel (11/18/2024 10:18 AM EDT) SODIUM 140 133 - 146 mmol/L [facility] POTASSIUM 4.6 3.3 - 5.1 mmol/L [facility] CHLORIDE 103 96 - 108 mmol/L [facility] CO2 30 21 - 35 mmol/L [facility] BUN 13 6 - 19 mg/dL [facility] CREATININE 1.00 0.5 - 1.5 mg/dL [facility] GLUCOSE 98 70 - 99 mg/dL [facility] ALBUMIN 4.1 3.9 - 4.8 g/dL [facility] TOTAL PROTEIN 6.6 6.5 - 8.0 g/dL [facility] CALCIUM 9.5 8.4 - 10.3 mg/dL [facility] ALKALINE PHOSPHATASE 96 39 - 117 U/L [facility] TOTAL BILIRUBIN 0.8 0.0 - 1.2 mg/dL [facility] AST 22 0 - 37 U/L [facility] ALT 23 0 - 40 U/L [facility] GLOBULIN 2.5 1 - 4.8 g/dL [facility] EGFR 82 >59 mL/min/1.7 3m2 [facility] Comment:Estimated glomerular filtration rate calculated using the CKD-EPI refit equation. ANION GAP 12 10 - 20 mmol/L [facility] Blood 11/18/2024 10:1 8 AM EDT 11/18/2024 10:23 AM EDT us Emili THAKKAR LAB BLOOD ORDERABLES Final Result [address] [address] * (ABNORMAL) 25-OH vitamin D (11/18/2024 10:18 AM EDT) 25 OH VIT D (TOTAL) 21(L) 30 - 60 ng/mL [facility] Blood 11/18/2024 10:1 8 AM EDT 11/18/2024 10:23 AM EDT us Emili THAKKAR LAB BLOOD ORDERABLES Final Result [address] [address] * (ABNORMAL) CBC and differential (11/18/2024 10:18 AM EDT) WBC 8.10 4.00 - 11.00 K/uL [facility] RBC 4.78 4.50 - 5.90 M/uL [facility] HGB 14.8 13.5 - 17.5 g/dL [facility] HCT 44.6 41.0 - 53.0 % [facility] PLT 123(L) 150 - 450 K/uL [facility] MCV 93.3 80.0 - 100.0 fL [facility] MCH 31.0 27.0 - 31.0 pg [facility] MCHC 33.2 32.0 - 36.0 g/dL [facility] RDW 13.3 11.5 - 14.5 % [facility] MPV 12.6(H) 8.4 - 12.0 fL [facility] NRBC 0.20(H) 0.00 /100 WBCs [facility] ABSOLUTE NRBC 0.02(H) 0.00 K/uL [facility] DIFF METHOD Auto [facility] NEUTS 29.2(L) 48.0 - 76.0 % [facility] LYMPHS 62.1(H) 18.0 - 41.0 % [facility] Comment: Moderate Atypical Lymphs MONOS 4.2 4.0 - 11.0 % [facility] EOS 3.8 0.0 - 5.0 % [facility] BASOS 0.7 0.0 - 1.5 % [facility] Granulocytes, immature (%) 0.0 0.0 - 0.9 % [facility] ABSOLUTE NEUTS 2.36 1.92 - 7.60 K/uL [facility] ABSOLUTE LYMPHS 5.03(H) 0.72 - 4.10 K/uL [facility] ABSOLUTE MONOS 0.34 0.16 - 1.10 K/uL [facility] ABSOLUTE EOS 0.31 0.00 - 0.50 K/uL [facility] ABSOLUTE BASOS 0.06 0.00 - 0.15 K/uL [facility] Granulocytes, immature 0.00 0.00 - 0.09 K/uL [facility] Blood 11/18/2024 10:1 8 AM EDT 11/18/2024 10:23 AM EDT us Emili THAKKAR LAB BLOOD ORDERABLES Final Result [facility] [address] [place] [address] * (ABNORMAL) TSH (11/18/2024 10:18 AM EDT) TSH 4.58(H) 0.27 - 4.20 uIU/mL [facility] Blood 11/18/2024 10:1 8 AM EDT 11/18/2024 10:23 AM EDT Emili THAKKAR LAB BLOOD ORDERABLES Final Result [address] [address] * Free T4 (11/18/2024 10:18 AM EDT) FREE T4 1.4 0.9 - 1.7 ng/dL [facility] Blood 11/18/2024 10:1 8 AM EDT 11/18/2024 10:23 AM EDT Emili THAKKAR LAB BLOOD ORDERABLES Final Result Performing Organization Address [facility] Co de Phone Number [address] [address] * PSA (screening) (11/18/2024 10:18 AM EDT) PSA 2.59 0 - 4.00 ng/mL [facility] Comment: Test Methodology Elisha [id number] Patient results determined by assays using different manufacturers or methods may not be comparable. Blood 11/18/2024 10:1 8 AM EDT 11/18/2024 10:24 AM EDT Emili THAKKAR LAB BLOOD ORDERABLES Final Result [address] [address] * Hemoglobin A1c (11/18/2024 10:18 AM EDT) HEMOGLOBIN A1C 5.1 4.3 - 5.8 % [facility] Blood 11/18/2024 10:1 8 AM EDT 11/18/2024 10:23 AM EDT Emili THAKKAR LAB BLOOD ORDERABLES Final Result Performing Organization Address [facility]/ZIP Co de Phone Number [address] [address] * (ABNORMAL) Lipid panel (11/18/2024 10:18 AM EDT) HDL 32 mg/dL [facility] Comment: Interpretation <40 mg/dL: Low HDL cholesterol (major risk factor for CHD) Greater than or equal to 60 mg/dL: High HDL cholesterol ( negative risk factor for CHD) HDL - cholesterol is affected by a number of factors, e.g. smoking, excerise, hormones, sex and age. CHOLESTEROL 188 0 - 240 mg/dL [facility] TRIGLYCERIDES 223(H) 30 - 160 mg/dL [facility] LDL 111 50 - 129 mg/dL [facility] Comment: LDL levels in terms of risk for coronary heart disease: <100 mg/dL: Optimal 100-129 mg/dL: Near or above optimal 130-159 mg/dL: Borderline high 160-189 mg/dL: High >190 mg/dL: Very High CARDIAC RISK RATIO 5.9(H) 3.4 - 5.0 [facility] Blood 11/18/2024 10:1 8 AM EDT 11/18/2024 10:24 AM EDT us Emili THAKKAR LAB BLOOD ORDERABLES Final Result Performing Organization Address [facility] Co de Phone Number [address] [address] * ENDOSCOPY, COLON (04/20/2022 1:33 PM EST) Narrative Transcriptions Arina Antunez MD - 04/20/2022 1:33 PM EST Patient Name: Lionel Jarvis Attending MD:: ARINA ANTUNEZ MD Procedure Date: 04/20/2022 1:33 PM Date of : 1955 Age: 66 Admit Type: Outpatient Gender: Male Room: [place] [address] Referring MD: LUIS MUNSON DO Exam Type: Colonoscopy Indications: Screening in patient at increased risk: Colorectal cancer in brother before age 60, Last colonoscopy: August 2018, Personal h/o rectal carcinoid Medications: Propofol per Anesthesia Procedure: Informed consent was obtained from the patientafter discussion of the indications, limitations, alternatives, benefits, and risks of the procedure. Risks specifically discussed include but are not limited to medication reactions, missed lesions, bleeding, perforation, or the need for emergent surgery. Throughout the procedure, the patient's blood pressure, pulse, end-tidal CO2, and oxygensaturations were monitored continuously. The Olympus adult variable colonoscope [id number] #2 was introduced through the anus and advanced to the cecum, identified by appendiceal orifice andileocecal valve. The ileocecal valve, appendiceal orifice,and rectum were photographed. The colonoscopy was performed without difficulty. The patient tolerated the procedure well. The quality of the bowel preparation was good. The bowel preparation usedwas PEG/Miralax in Gatoraide and/or Pedialyte via split dose instruction. Complications: No immediate complications. Estimated blood loss:None. Findings: The perianal and digital rectal examinations were normal. Pertinent negatives include normal prostate (size, shape, and consistency). The entire examined colon appeared normal on direct and retroflexion views. Retroflexion in the right colon was performed. Impression: - The entire examined colon is normal on direct and retroflexion views. - No specimens collected. Recommendation: - Repeat colonoscopy in 5 years for screeningpurposes. ARINA ANTUNEZ MD 04/20/2022 2:07:28 PM This report has been signed electronically. Number of Addenda: 0 Note Initiated On: 04/20/2022 1:33 PM Procedure Code(s): --- Professional --- 19585, Colonoscopy, flexible; diagnostic, including collection of specimen(s) by brushing or washing, when performed (separateprocedure) --- Technical --- 10402, Colonoscopy, flexible; diagnostic, including collection of specimen(s) by brushing or washing, when performed (separateprocedure) Diagnosis Code(s): --- Professional --- Z80.0, Family history of malignant neoplasm of digestive organs --- Technical --- Z80.0, Family history of malignant neoplasm of digestive organs CPT copyright 2020 [employer]. All rights reserved. The codes documented in this report are preliminary and upon patrol lady reviewmay be revised to meet current compliance requirements. Procedure Date: 04/20/2022 1:33:[address] [place] [address] us Luis A Bigda DO GI PROCEDURE ORDERABLES Final Re sult * Hepatitis C antibody, qualitative (04/23/2019 8:58 AM EST) HCV NON-REACTIV E NON-REACTI VE [facility] Blood 04/23/2019 8:58 AM EST 04/23/2019 10:20 AM EST us Luis A Bigda DO LAB BLOOD ORDERABLES Final Resul t [address] [address] * ENDOSCOPY, SIGMOID (10/10/2018 10:29 AM EDT) Narrative Transcriptions Arina Antunez MD - 10/10/2018 10:29 AM EDT Patient Name: Lionel Matheus Attending MD:: ARINA ANTUNEZ MD Procedure Date: 10/10/2018 10:29 AM Date of : 1955 Age: 62 Admit Type: Outpatient Gender: Male Room: [place] [address] Referring MD: LUIS MUNSON DO Exam Type: Flexible Sigmoidoscopy Indications: Family history of colon cancer in a first-degreerelative, Personal history of colonic polyps Medications: Propofol per Anesthesia Procedure: Informed consent was obtained from the patient after discussion of the indications, limitations,alternatives, benefits, and risks of the procedure. Risksspecifically discussed include but are not limited to medication reactions, missed lesions, bleeding, perforation, orthe need for emergent surgery. Throughout the procedure, the patient's blood pressure, pulse, end-tidal CO2, and oxygen saturations were monitored continuously. The Olympus adult variable colonoscope [id number] #2 was introduced through theanus and advanced to the descending colon. The flexible sigmoidoscopy was accomplished without difficulty. The patient tolerated the procedure well. The quality ofthe bowel preparation was good. Complications: No immediate complications. Estimated blood loss:None. Findings: The perianal and digital rectal examinations werenormal. Pertinent negatives include no palpable rectal lesionsand normal prostate (size, shape, and consistency). A diminutive polyp was found in the rectum rectum (benign-appearing lesion). This does not appear to be significant, but no other abnormalities are seen. The polyp was sessile. The polyp was removed with a hotbiopsy forceps (cold bxs then base ablated with snare tip) . Resection and retrieval were complete. The sigmoid colon appeared normal. Solid stool seen inthe descending colon. Impression: - One benign appearing diminutive polyp in the rectumin the rectum, removed with a hot biopsy forceps. Resected and retrieved. - The sigmoid colon is normal. Recommendation: - Perform a colonoscopy in 3 years. ARINA ANTUNEZ MD 10/10/2018 10:55:07 AM This report has been signed electronically. Number of Addenda: 0 Note Initiated On: 10/10/2018 10:29 AM Procedure Code(s): --- Professional --- 43750, Sigmoidoscopy, flexible; with removal of tumor(s), polyp(s),or other lesion(s) by hot biopsy forceps --- Technical --- 04404, Sigmoidoscopy, flexible; with removal of tumor(s), polyp(s),or other lesion(s) by hot biopsy forceps Diagnosis Code(s): --- Professional --- K62.1, Rectal polyp Z80.0, Family history of malignant neoplasm of digestive organs Z86.010, Personal history of colonic polyps --- Technical --- K62.1, Rectal polyp Z80.0, Family history of malignant neoplasm of digestive organs Z86.010, Personal history of colonic polyps CPT copyright 2016 [employer]. All rights reserved. The codes documented in this report are preliminary and upon patrol lady reviewmay be revised to meet current compliance requirements. [address] [place] [address] us Luis A Bigda DO GI PROCEDURE ORDERABLES Final Re sult from Last 3 Months or Most Recently Relevant to Health Maintenance Insurance [facility] [place] [address] [place] [address] HMO [facility] Care Teams Colors Custodian Relationship Specialty Start Date End Date Luis Munson DO [address] [place] [address] PCP - General Internal Medicine 07/09/24 Luis Munson DO Historical LMR Provider 03/27/17 Additional Source Comments The information contained in this document represents components of the legal health record. It is not the complete legal health record.[facility]
--- OUTSIDE RECORDS SUMMARY | 2025-02-05 09:36 | XMS_ITS | Encounter Summary ---
Author Organization [facility] Address [address] [facility] [address] [place] [address] Phone Care Team Providers Care Big Data Admin Name Role Phone Nickolas iRddle DO Unavailable Theo Proctor MD Unavailable + [phone] Adam Gauthier MD Unavailable [phone] Nickolas Riddle DO Primary Care Provider [phone] Nickolas Riddle DO Primary Care Provider [phone] Encounter Details Date Type Department Care Team (Late st Contact Info) Description 04/13/2017 Ancillary Orders [facility], X-Ray - [facility] [address] [place] [address] Nickolas Riddle DO [address] [facility] [place] [address] [email or web address] Coccyx sprain, initial encounter Social History Tobacco Use Types Packs/Day Years [...] documented as of this encounter Visit Diagnoses Diagnosis Coccyx sprain, initial encounter documented in this encounter Care Teams Big Data Admin Relationship Specialty Start Date End Date Nickolas Riddle DO PCP - General Internal Medicine 04/13/17 07/08/24 Nickolas Riddle DO [address] [place] [id number] PCP - General Internal Medicine 07/09/24 Nickolas Riddle DO Historical LMR Provider 03/27/17 Theo Proctor MD [address] [place] [address] [email or web address] Historical LMR Provider 03/27/17 06/18/21 Adam Gauthier MD [address] [place] [address] Historical LMR Provider 03/27/17 documented as of this encounter Additional Source Comments The information contained in this document represents components of the legal health record. It is not the complete legal health record.[facility]
--- OUTSIDE RECORDS SUMMARY | 2025-02-05 09:36 | XMS_ITS | Encounter Summary ---
Author Organization [facility] Address [address] [facility] [address] [place] [address] Phone Care Team Providers Care Nutrition Manager Name Role Phone Nickolas Riddle DO Unavailable Teho Proctor MD Unavailable + [phone] Adam Gauthier MD Unavailable [phone] Nickolas Riddle DO Primary Care Provider [phone] Nickolas Riddle DO Primary Care Provider [phone] Encounter Details Date Type Department Care Team (Late st Contact Info) Description 10/04/2018 Transcribe Orders [facility] [address] [place] [address] Nickolas Riddle DO [address] [facility] [address] [place], [place] [id number] [email or web address] Myxedema heart disease (Primary Dx) Social History [...] EDT) TSH 5.22(H) 0.27 - 4.20 uIU/mL [facility] Blood 10/04/2018 8:34 AM EDT 10/04/2018 8:58 AM EDT us Nickolas A Barryda DO LAB BLOOD ORDERABLES Final Resul t Performing Organization Address City/[facility]/ZIP Co de Phone Number [address] [address] * T4, total (10/04/2018 8:34 AM EDT) THYROXINE 7.5 4.6 - 12.0 ug/dL [facility] Blood 10/04/2018 8:34 AM EDT 10/04/2018 8:58 AM EDT us Nickolas Riddle DO LAB BLOOD ORDERABLES Final Resul t Performing Organization Address City/[facility] Co de Phone Number [address] [address] documented in this encounter Visit Diagnoses Diagnosis Myxedema heart disease- Primary Unspecified hypothyroidism documented in this encounter Care Teams Nutrition Manager Relationship Specialty Start Date End Date Nickolas Riddle DO PCP - General Internal Medicine 04/13/17 07/08/24 Nickolas Riddle DO [address] [place] [address] PCP - General Internal Medicine 07/09/24 Nickolas Riddle DO Historical LMR Provider 03/27/17 Theo Proctor MD [address] [place] [address] [email or web address] Historical LMR Provider 03/27/17 06/18/21 Adam Gauthier MD [address] [place] [address] Historical LMR Provider 03/27/17 documented as of this encounter Additional Source Comments The information contained in this document represents components of the legal health record. It is not the complete legal health record.[facility]
--- OUTSIDE RECORDS SUMMARY | 2025-02-05 09:36 | XMS_ITS | Encounter Summary ---
Author Organization [facility] Address [address] [place] [address] Phone Care Team Providers Care Senior Web Services Developer Name Role Phone BarryNicoklas lake Unavailable Theo Proctor MD Unavailable + [phone] Adam Gauthier MD Unavailable [phone] Nickolas Riddle DO Primary Care Provider [phone] Nickolas Riddle DO Primary Care Provider [phone] Encounter Details Date Type Department Care Team (Late st Contact Info) Description 03/25/2018 Ancillary Orders Virtual Department [address] [place] [address] Collette Bergeron PA-C [address] [place] [address] Pneumonia due to infectious organism, unspecified laterality, unspecified part of lung Social History Tobacco Use Types Packs/Day Years [...] documented as of this encounter Results * XR CHEST PA AND LATERAL 2 VIEWS (03/27/2018 10:47 AM EDT) Anatomical Region Laterality Modality Chest Radiographic Carole ging 03/27/2018 10:4 9 AM EDT Impressions 03/27/2018 10:53 AM EDT No acute chest disease. POS - [id number] Narrative 03/27/2018 10:53 AM EDT HISTORY: As above. COMPARISON: 11/28/2012 and as far back as 03/21/2012. CHEST RADIOGRAPH FINDINGS: 2 views obtained. Heart and mediastinum are normal. Stable mild bronchial wall thickening and 3 mm radiopaque nodular density in the right upper lung representing either second rib bone island or calcified granuloma. Bones and soft tissues are within normal limits. Procedure Note Lalita Henderson MD - 03/27/2018 HISTORY: As above. COMPARISON: 11/28/2012 and as far back as 03/21/2012. CHEST RADIOGRAPH FINDINGS: 2 views obtained. Heart and mediastinum are normal. Stable mildbronchial wall thickening and 3 mm radiopaque nodular density in the rightupper lung representing either second rib bone island or calcifiedgranuloma. Bones and soft tissues are within normal limits. IMPRESSION: No acute chest disease. POS - [id number] September Elyssa CAMILO IMG XR CHEST Final Result documented in this encounter Visit Diagnoses Diagnosis Pneumonia due to infectious organism, unspecified laterality, unspecified part of lung Pneumonia due to infectious organism, unspecified laterality, unspecified part of lung documented in this encounter Care Teams Senior Web Services Developer Relationship Specialty Start Date End Date Nickolas Riddle DO PCP - General Internal Medicine 04/13/17 07/08/24 Nickolas Riddle DO [address] [place] [address] PCP - General Internal Medicine 07/09/24 Nickolas Riddle DO [email or web address] Historical LMR Provider 03/27/17 Theo Proctro MD [address] [place] [address] [email or web address] Historical LMR Provider 03/27/17 06/18/21 Adam Gauthier MD [address] [place] [address] Historical LMR Provider 03/27/17 documented as of this encounter Additional Source Comments The information contained in this document represents components of the legal health record. It is not the complete legal health record.[facility]
--- OUTSIDE RECORDS SUMMARY | 2025-02-05 09:36 | XMS_ITS | Encounter Summary ---
Author Organization [facility] Address [address] [place] [address] Phone Care Team Providers Care Creative Art Therapist Name Role Phone Nickolas Riddle DO Unavailable Theo Proctor MD Unavailable + [phone] Adam Gauthier MD Unavailable [phone] Nickolas Riddle DO Primary Care Provider [phone] Nickolas Riddle DO Primary Care Provider [phone] Encounter Details Date Type Department Care Team (Late st Contact Info) Description 08/13/2018 Procedure Pass [facility] Endoscopy Admitting Dept Virtual Department [address] [place] [address] Social History Tobacco Use Types Packs/Day Years [...] on filedocumented in this encounter Care Teams Creative Art Therapist Relationship Specialty Start Date End Date Nickolas Riddle DO PCP - General Internal Medicine 04/13/17 07/08/24 Nickolas Riddle DO [address] [place] [address] PCP - General Internal Medicine 07/09/24 Nickolas Riddle DO Historical LMR Provider 03/27/17 Theo Proctor MD [address] [place] [address] [email or web address] Historical LMR Provider 03/27/17 06/18/21 Adam Gauthier MD [address] [place] [address] Historical LMR Provider 03/27/17 documented as of this encounter Additional Source Comments The information contained in this document represents components of the legal health record. It is not the complete legal health record.[facility]
--- OUTSIDE RECORDS SUMMARY | 2025-02-05 09:36 | XMS_ITS | Encounter Summary ---
Author Organization [facility] Address [address] [address] Phone Care Team Providers Care Foreign Banknote Teller Trader Name Role Phone Nickolas Riddle DO Unavailable Theo Proctor MD Unavailable + [phone] Adam Gauthier MD Unavailable [phone] Nickolas Riddle DO Primary Care Provider [phone] Nickolas Riddle DO Primary Care Provider [phone] Encounter Details Date Type Department Care Team (Late st Contact Info) Description 04/15/2019 Transcribe Orders Virtual Department [address] [place] [address] Nickolas Riddle DO [address] [facility] [place] [address] [place] [address] [email or web address] Pleurodynia (Primary Dx) Social History Tobacco Use Types [...] as of this encounter Results * XR RIBS 3 OR MORE VIEWS WITH PA CHEST (LEFT) (04/22/2019 10:20 AM EST) Anatomical Region Laterality Modality Chest Radiographic Carole ging 04/22/2019 12:0 2 PM EST Impressions 04/22/2019 12:05 PM EST No pneumothorax or rib findings are clearly account for the patient's pleurodynia. No infiltrates or large volume effusion. Increasing nephrolithiasis on the left, including a stone in the region of the left renal pelvis. POS - [id number] Narrative 04/22/2019 12:05 PM EST PA view of the chest and 4 views of the left ribs obtained. Comparison made to radiographs from February 24. No pneumothorax or pleural fluid is seen. Mild apical pleural thickening is unchanged. No mediastinal contour finding of concern. The views of the ribs demonstrate no fracture. No bony destructive lesions are seen. Multiple stones are noted over the lower pole of the left kidney, increased in number since the CT from August 2012. There also appears to be a stone near the level of the renal pelvis measuring approximately 1.4 x 0.7 cm, including some magnification. Procedure Note Bassam Delarosa MD - 04/22/2019 PA view of the chest and 4 views of the left ribs obtained. Comparisonmade to radiographs from February 24. No pneumothorax or pleural fluid isseen. Mild apical pleural thickening is unchanged. No mediastinal contourfinding of concern. The views of the ribs demonstrate no fracture. No bony destructive lesionsare seen. Multiple stones are noted over the lower pole of the leftkidney, increased in number since the CT from August 2012. There alsoappears to be a stone near the level of the renal pelvis measuringapproximately 1.4 x 0.7 cm, including some magnification. IMPRESSION: No pneumothorax or rib findings are clearly account for the patient'spleurodynia. No infiltrates or large volume effusion. Increasingnephrolithiasis on the left, including a stone in the region of the leftrenal pelvis. POS - [email or web address] us Nickolas A Bigda DO IMG XR CHEST Final Result documented in this encounter Visit Diagnoses Diagnosis Pleurodynia- Primary Painful respiration Pleurodynia Painful respiration documented in this encounter Care Teams Foreign Banknote Teller Trader Relationship Specialty Start Date End Date Nickolas Riddle DO [email or web address] PCP - General Internal Medicine 04/13/17 07/08/24 Nickolas Riddle DO [address] [place] [address] [email or web address] PCP - General Internal Medicine 07/09/24 Nickolas Riddle DO [email or web address] Historical LMR Provider 03/27/17 Theo Proctor MD [address] [place] [address] [email or web address] Historical LMR Provider 03/27/17 06/18/21 Adam Gauthier MD [address] [place] [address] Historical LMR Provider 03/27/17 documented as of this encounter Additional Source Comments The information contained in this document represents components of the legal health record. It is not the complete legal health record.[facility]
--- OUTSIDE RECORDS SUMMARY | 2025-02-05 09:37 | XMS_ITS | Encounter Summary ---
Author Organization [facility] Address [address] [place] [address] Phone Care Team Providers Care Row Boss Hoeing Name Role Phone Nickolas Riddle DO Unavailable Bigda, Nickolas A DO Primary Care Provider [phone] Bigda, Nickolas A DO Primary Care Provider [phone] Encounter Details Date Type Department Care Team (Late st Contact Info) Description 10/29/2023 Procedure Pass [facility] Echo [facility] [address] [place] [address] Social History Tobacco Use Types Packs/Day Years Used Date Smoking Tobacco: Never Smokeless Tobacco: Never Alcohol Use Standard Drinks/Week Comments Not Currently [...] on filedocumented in this encounter Care Teams Row Boss Hoeing Relationship Specialty Start Date End Date Nickolas Riddle DO PCP - General Internal Medicine 04/13/17 07/08/24 Nickolas Riddle DO [address] [place] [address] PCP - General Internal Medicine 07/09/24 Nickolas Riddle DO Historical LMR Provider 03/27/17 documented as of this encounter Additional Source Comments The information contained in this document represents components of the legal health record. It is not the complete legal health record.[facility]
--- OUTSIDE RECORDS SUMMARY | 2025-02-05 09:37 | XMS_ITS | Encounter Summary ---
Author Organization [facility] Address [address] [place] [address] [place] [address] Phone Care Team Providers Care Religious Educator Name Role Phone Nickolas Riddle DO Unavailable Bigda, Nickolas A DO Primary Care Provider [phone] Bigda, Nickolas A DO Primary Care Provider [phone] Encounter Details Date Type Department Care Team (Late st Contact Info) Description 06/27/2024 Procedure Pass [employer], Ct Scan - [address] [address] Social History Tobacco Use Types Packs/Day Years [...] on filedocumented in this encounter Care Teams Religious Educator Relationship Specialty Start Date End Date Nickolas Riddle DO [email or web address] PCP - General Internal Medicine 04/13/17 07/08/24 Nickolas Riddle DO [address] [place] [address] [email or web address] PCP - General Internal Medicine 07/09/24 Nickolas Riddle DO [email or web address] Historical LMR Provider 03/27/17 documented as of this encounter Additional Source Comments The information contained in this document represents components of the legal health record. It is not the complete legal health record.[facility]
--- OUTSIDE RECORDS SUMMARY | 2025-02-05 09:37 | XMS_ITS | Encounter Summary ---
Author Organization [facility] Address [address] [facility] [address] [place] [address] Phone Care Team Providers Care Log Sawyer Name Role Phone Nickolas Riddle DO Unavailable Bigda, Nickolas A DO Primary Care Provider [phone] Bigda, Nickolas A DO Primary Care Provider [phone] Encounter Details Date Type Department Care Team (Late st Contact Info) Description 12/04/2023 Transcribe Orders [facility] Pulmonary, Allergy and Critical Care Medicine [address] [facility] [place] [address] [place] [address] Emili Aldrich PA [address] [facility] [place] [address] [place] [address] Social History Tobacco Use Types Packs/Day Years [...] on filedocumented in this encounter Care Teams Log Sawyer Relationship Specialty Start Date End Date Nickolas Riddle DO [email or web address] PCP - General Internal Medicine 04/13/17 07/08/24 Nickolas Riddle DO [address] [place] [address] [email or web address] PCP - General Internal Medicine 07/09/24 Nickolas Riddle DO [email or web address] Historical LMR Provider 03/27/17 documented as of this encounter Additional Source Comments The information contained in this document represents components of the legal health record. It is not the complete legal health record.[facility]
--- OUTSIDE RECORDS SUMMARY | 2025-02-05 09:37 | XMS_ITS | Encounter Summary ---
Author Organization [facility] Address [address] [place] [address] Phone Care Team Providers Care Final Inspector Balance Wheel Name Role Phone Janessa Nickolas Montero DO Unavailable Nickolas Riddle DO Primary Care Provider [phone] Nickolas Riddle DO Primary Care Provider [phone] Encounter Details Date Type Department Care Team (Late st Contact Info) Description 04/20/2022 Procedure Pass [facility] Endoscopy Admitting Dept Virtual Department [address] [place] [address] Social History Tobacco Use Types Packs/Day Years Used Date Smoking Tobacco: Never Smokeless Tobacco: Never Alcohol Use Standard Drinks/Week Comments Not Currently 0 (1 standard drink = 0.6 oz pur e alcohol) none for 32 yrs Sex and Gender Information Value Date Recorded Sex Assigned at Male 02/24/2019 9:15 PM EDT Legal Sex Male 9:54 PM EDT Gender Identity Male 02/24/2019 9:15 PM EDT Sexual Orientation Not on file documented as of this encounter Plan of Treatment Not on file documented as of this encounter Visit Diagnoses Not on filedocumented in this encounter Care Teams Final Inspector Balance Wheel Relationship Specialty Start Date End Date Nickolas Riddle DO PCP - General Internal Medicine 04/13/17 07/08/24 Nickolas Riddle DO [address] [place] [address] PCP - General Internal Medicine 07/09/24 Nickolas Riddle DO [email or web address] Historical LMR Provider 03/27/17 documented as of this encounter Additional Source Comments The information contained in this document represents components of the legal health record. It is not the complete legal health record.[facility]
--- OUTSIDE RECORDS SUMMARY | 2025-02-05 09:37 | XMS_ITS | Encounter Summary ---
Author Organization [facility] Address [address] [facility] [address] [place] [address] Phone Care Team Providers Care Clerical Adviser Name Role Phone Nickolas Riddle DO Unavailable Bigda, Nickolas A DO Primary Care Provider [phone] Bigda, Nickolas A DO Primary Care Provider [phone] Encounter Details Date Type Department Care Team (Late st Contact Info) Description 10/03/2023 Transcribe Orders Virtual Department [address] [place] [address] Jolynn Syed MD [address] [place] [address] [email or web address] Mycoplasma infection, unspecified site (Primary Dx) Social History Tobacco Use Types [...] XR CHEST PA AND LATERAL 2 VIEWS (10/04/2023 8:38 AM EDT) Anatomical Region Laterality Modality Chest Computed Radiogr aphy 10/04/2023 8:59 AM EDT Impressions 10/04/2023 9:00 AM EDT No acute findings. Narrative 10/04/2023 9:00 AM EDT XR CHEST PA AND LATERAL 2 VIEWS Referring clinician's provided indication for this examination in [facility]: Other Indication (Please use free text); mycoplasma infection COMPARISON: May 16, 2022 FINDINGS: Lungs: No pneumonia or pulmonary edema. Pleura: No pleural effusion. No pneumothorax Heart/Mediastinum: Heart size normal. Bones/Soft Tissues: No acute finding Procedure Note Rome Richards MD, AVANI - 10/04/2023 XR CHEST PA AND LATERAL 2 VIEWS Referring clinician's provided indication for this examination in [facility]:Other Indication (Please use free text); mycoplasma infection COMPARISON: May 16, 2022 FINDINGS: Lungs: No pneumonia or pulmonary edema. Pleura: No pleural effusion. No pneumothorax Heart/Mediastinum: Heart size normal. Bones/Soft Tissues: No acute finding IMPRESSION: No acute findings. Jolynn Syed MD IMG XR CHEST Final Result documented in this encounter Visit Diagnoses Diagnosis Mycoplasma infection, unspecified site- Primary Mycoplasma infection, unspecified site documented in this encounter Care Teams Clerical Adviser Relationship Specialty Start Date End Date Nickolas Riddle DO PCP - General Internal Medicine 04/13/17 07/08/24 Nickolas Riddle DO [address] [place] [address] PCP - General Internal Medicine 07/09/24 Nickolas Riddle DO Historical LMR Provider 03/27/17 documented as of this encounter Additional Source Comments The information contained in this document represents components of the legal health record. It is not the complete legal health record.[facility]
--- OUTSIDE RECORDS SUMMARY | 2025-02-05 09:37 | XMS_ITS | Encounter Summary ---
Author Organization [facility] Address [address] [facility] [address] [place] [address] Phone Care Team Providers Care Fruit Grower Name Role Phone Nickolas Riddle DO Unavailable Theo Proctor MD Unavailable + [phone] Adam Gauthier MD Unavailable [phone] Nickolas Riddle DO Primary Care Provider [phone] Nickolas Riddle DO Primary Care Provider [phone] Encounter Details Date Type Department Care Team (Late st Contact Info) Description 04/13/2017 Ancillary Orders [facility], X-Ray - [facility] [address] [place] [address] Nickolas Riddle DO [address] [place] [address] [email or web address] Coccyx sprain, initial encounter Social History Tobacco [...] as of this encounter Results * XR Sacrum and Coccyx (04/13/2017 10:45 AM EDT) Anatomical Region Laterality Modality L-spine Radiographic Carole ging 04/13/2017 10:4 8 AM EDT Impressions 04/13/2017 11:16 AM EDT Posterior angulation at the coccyx. This can be within the variation of normal. Correlation can be made with physical examination to determine if there is any particular pain in the region. No evidence for fracture or bony destructive lesion. POS - [id number] Edited by: Marilu Kathleen on 04/13/2017 11:02 AM Narrative 04/13/2017 11:16 AM EDT AP and lateral views of the sacrum and coccyx obtained. No gross sclerosis or erosion at the SI joints. Posterior angulation at the coccyx is within the variation of normal and can be correlated with digital rectal exam regarding the possibility for acute injury. No sacral fracturing. No bony destructive lesions. There is partial sacralization of L5 transverse processes or lumbarization of S1, not determined confidently without imaging of the entire spine. Procedure Note Bassam Delarosa MD - 04/13/2017 AP and lateral views of the sacrum and coccyx obtained. No gross sclerosisor erosion at the SI joints. Posterior angulation at the coccyx is withinthe variation of normal and can be correlated with digital rectal examregarding the possibility for acute injury. No sacral fracturing. No bonydestructive lesions. There is partial sacralization of L5 transverseprocesses or lumbarization of S1, not determined confidently withoutimaging of the entire spine. IMPRESSION: Posterior angulation at the coccyx. This can be within the variation ofnormal. Correlation can be made with physical examination to determine ifthere is any particular pain in the region. No evidence for fracture orbony destructive lesion. POS - [email or web address] Edited by: Marilu Kathleen on 04/13/2017 11:02 AM us Nickolas A Bigda DO IMG XR SPINE Final Result documented in this encounter Visit Diagnoses Diagnosis Coccyx sprain, initial encounter Coccyx sprain, initial encounter documented in this encounter Care Teams Fruit Grower Relationship Specialty Start Date End Date Bigda, Nickolas MonteroDO PCP - General Internal Medicine 04/13/17 07/08/24 Nickolas Riddle KylahDO [address] [place] [address] PCP - General Internal Medicine 07/09/24 Nickolas Riddle DO [email or web address] Historical LMR Provider 03/27/17 Theo Proctor MD [address] [place] [address] [email or web address] Historical LMR Provider 03/27/17 06/18/21 Adam Gauthier MD [address] [place] [address] Historical LMR Provider 03/27/17 documented as of this encounter Additional Source Comments The information contained in this document represents components of the legal health record. It is not the complete legal health record.[facility]
--- OUTSIDE RECORDS SUMMARY | 2025-02-05 09:37 | XMS_ITS | Encounter Summary ---
Author Organization [facility] Address [address] [place] [address] Phone Care Team Providers Care Outside Sales Executive Name Role Phone Nickolas Riddle DO Unavailable Bigda, Nickolas A DO Primary Care Provider [phone] Bigda, Nickolas A DO Primary Care Provider [phone] Reason for Referral * MRI/CAT Scan - Closed Specialty Diagnoses / Procedures Referred By Contac t Referred To Contact Radiology Diagnoses Abnormal result of other cardiovascular function study Procedures NC Myocardial Perfusion Pharmacologic Stress Multiple CHG MYOCARDIAL SPECT MULTIPLE STUDIES Emili Aldrich PA [address] [place] [address] Phone: tel: fax: Referral ID Status Reason Start Date Expiration Date Visits Re quested Visits Authorized [id number] Closed 11/09/2023 01/08/2024 4 4 Encounter Details Date Type Department Care Team (Latest Contact Info) Description 11/09/2023 Transcribe Orders Virtual Department [address] [place] [address] Emili Aldrich PA [address] [place] [address] Abnormal result of other cardiovascular function study (Primary Dx) Social History Tobacco [...] documented as of this encounter Results * NC Myocardial Perfusion Pharmacologic Stress Multiple (11/27/2023 1:44 PM EDT) Anatomical Region Laterality Modality Heart, Vascular Nuclear Medicine 11/28/2023 5:03 PM EDT Impressions 11/29/2023 10:50 AM EDT Left ventricular ejection fraction: 75% Mild inferior wall thinning, not clearly outside of normal limits. No specific evidence of ischemia or infarction. Narrative 11/29/2023 10:50 AM EDT EXAM: NC MYOCARDIAL PERFUSION PHARMACOLOGIC STRESS MULTIPLE CLINICAL INDICATION: Outside Radiology Order; abnormal stress test. TECHNIQUE: According to standard departmental protocol, the patient was injected with 10.6 mCi of TC-99M Sestamibi IV at rest and ungated SPECT myocardial images were obtained. Subsequently, a stress test was performed and 32.7 mCi of TC-99M Sestamibi was injected at peak stress. After 30 to 60 minutes, gated SPECT images were obtained and assessed for myocardial perfusion and left ventricular function. Stress EKG findings were interpreted by cardiology and are reported separately. Please refer to that report in Epic. COMPARISON: None. FINDINGS: PERFUSION: Perfusion images demonstrate heterogeneous distribution of radiotracer. Thinning of the inferior wall without evidence of ischemia or infarction. VENTRICULAR SIZE AND FUNCTION: Left ventricular ejection fraction within normal limits. Left ventricular size within normal limits. No regional wall motion abnormality. LV EF: 75% TID Ratio: 1.03 IMAGE QUALITY: Fair. Soft tissue attenuation laterally and anteriorly. Procedure Note Bossman Abbasi MD - 11/29/2023 EXAM: NC MYOCARDIAL PERFUSION PHARMACOLOGIC STRESS MULTIPLE CLINICAL INDICATION: Outside Radiology Order; abnormal stress test. TECHNIQUE: According to standard departmental protocol, the patient wasinjected with 10.6 mCi of TC-99M Sestamibi IV at rest and ungated SPECTmyocardial images were obtained. Subsequently, a stress test was performedand 32.7 mCi of TC-99M Sestamibi was injected at peak stress. After 30 to60 minutes, gated SPECT images were obtained and assessed for myocardialperfusion and left ventricular function. Stress EKG findings were interpreted by cardiology and are reportedseparately. Please refer to that report in Epic. COMPARISON: None. FINDINGS: PERFUSION: Perfusion images demonstrate heterogeneous distribution ofradiotracer. Thinning of the inferior wall without evidence of ischemia orinfarction. VENTRICULAR SIZE AND FUNCTION: Left ventricular ejection fraction withinnormal limits. Left ventricular size within normal limits. No regionalwall motion abnormality. LV EF: 75% TID Ratio: 1.03 IMAGE QUALITY: Fair. Soft tissue attenuation laterally and anteriorly. IMPRESSION: Left ventricular ejection fraction: 75% Mild inferior wall thinning, not clearly outside of normal limits. Nospecific evidence of ischemia or infarction. Emili THAKKAR CV NM CARDIAC Final Resul t documented in this encounter Visit Diagnoses Diagnosis Abnormal result of other cardiovascular function study- Primary Abnormal result of other cardiovascular function study documented in this encounter Care Teams Outside Sales Executive Relationship Specialty Start Date End Date Nickolas Riddle DO [email or web address] PCP - General Internal Medicine 04/13/17 07/08/24 Nickolas Riddle DO [address] [place] [address] [email or web address] PCP - General Internal Medicine 07/09/24 Nickolas Riddle DO [email or web address] Historical LMR Provider 03/27/17 documented as of this encounter Additional Source Comments The information contained in this document represents components of the legal health record. It is not the complete legal health record.[facility]
--- OUTSIDE RECORDS SUMMARY | 2025-02-05 09:37 | XMS_ITS | Encounter Summary ---
Author Organization [facility] Address [address] [place] [address] Phone Care Team Providers Care On Call Pharmacy Technician Name Role Phone Nickolas Riddle DO Unavailable Theo Proctor MD Unavailable + [phone] Adam Gauthier MD Unavailable [phone] Nickolas Riddle DO Primary Care Provider [phone] Nickolas Riddle DO Primary Care Provider [phone] Encounter Details Date Type Department Care Team (Latest Contact Info) Description 11/18/2019 Transcribe Orders Virtual Department [address] [place] [address] Emili José PA-C [address] [place] [address]. [place] [address] Chest pain, unspecified type (Primary Dx) Social History Tobacco Use Types [...] as of this encounter Visit Diagnoses Diagnosis Chest pain, unspecified type- Primary documented in this encounter Care Teams On Call Pharmacy Technician Relationship Specialty Start Date End Date Nickolas Riddle DO PCP - General Internal Medicine 04/13/17 07/08/24 Nickolas Riddle DO [address] [place] [address] PCP - General Internal Medicine 07/09/24 Nickolas Riddle DO Historical LMR Provider 03/27/17 Theo Proctor MD [address] [place] [address] [email or web address] Historical LMR Provider 03/27/17 06/18/21 Adam Gauthier MD [address] [place] [address] Historical LMR Provider 03/27/17 documented as of this encounter Additional Source Comments The information contained in this document represents components of the legal health record. It is not the complete legal health record.[facility]
--- OUTSIDE RECORDS SUMMARY | 2025-02-05 09:37 | XMS_ITS | Encounter Summary ---
Author Organization [facility] Address [address] [place] [address] Phone Care Team Providers Care Brilliandeer Lopper Name Role Phone Nickolas Riddle Unavailable Theo Proctor MD Unavailable [phone] Adam Gauthier MD Unavailable [phone] Nickolas Riddle Kylah Primary Care Provider [phone] Nickolas Riddle DO Primary Care Provider [phone] Encounter Details Date Type Department Care Team (Latest Contact Info) Description 01/16/2018 Transcribe Orders [facility] [address] [place] [address] Collette Bergeron PA-C [address] [place] [address] Myxedema heart disease (Primary Dx); Pure hypercholesterolemia ; Benign prostatic hyperplasia, unspecified whether lower urinary tract symptoms present Social History Tobacco Use Types Packs/Day Years [...] of this encounter Results * PSA (screening) (01/16/2018 8:19 AM EDT) PSA 0.96 0 - 4.00 ng/mL [facility] Blood 01/16/2018 8:19 AM EDT 01/16/2018 8:26 AM EDT September Elyssa PAGE LAB BLOOD ORDERABLES Final R esult [address] [address] * Comprehensive metabolic panel (01/16/2018 8:19 AM EDT) SODIUM 144 133 - 146 mmol/L [facility] POTASSIUM 4.2 3.3 - 5.1 mmol/L [facility] CHLORIDE 104 96 - 108 mmol/L [facility] CO2 28 21 - 35 mmol/L [facility] BUN 18 6 - 19 mg/dL [facility] CREATININE 0.90 0.5 - 1.5 mg/dL [facility] GLUCOSE 87 70 - 99 mg/dL [facility] ALBUMIN 4.0 3.9 - 4.8 g/dL [facility] TOTAL PROTEIN 6.6 6.5 - 8.0 g/dL [facility] CALCIUM 8.9 8.4 - 10.3 mg/dL [facility] ALKALINE PHOSPHATASE 86 39 - 117 U/L [facility] TOTAL BILIRUBIN 0.9 0.0 - 1.2 mg/dL [facility] AST 25 0 - 37 U/L [facility] ALT 22 0 - 40 U/L [facility] GLOBULIN 2.6 1 - 4.8 g/dL [facility] EGFR 91 >59 mL/min/1.7 3m2 [facility] Comment:If patient is black, multiply result by 1.159. Estimated glomerular filtration rate calculated using the CKD-EPI equation. ANION GAP 16 10 - 20 mmol/L [facility] Blood 01/16/2018 8:19 AM EDT 01/16/2018 8:25 AM EDT September Elyssa PAGE LAB BLOOD ORDERABLES Final R esult [address] [address] * (ABNORMAL) Lipid panel (01/16/2018 8:19 AM EDT) HDL 38 mg/dL [facility] Comment: Interpretation: Risk Level Males Decreased >45 mg/dL Average 40-45 mg/dL Increased <40 mg/dL CHOLESTEROL 183 0 - 240 mg/dL [facility] TRIGLYCERIDES 180(H) 30 - 160 mg/dL [facility] LDL 109 50 - 129 mg/dL [facility] Comment: LDL levels in terms of risk for coronary heart disease: <100 mg/dL: Optimal 100-129 mg/dL: Near or above optimal 130-159 mg/dL: Borderline high 160-189 mg/dL: High >190 mg/dL: Very High CARDIAC RISK RATIO 4.8 3.4 - 5.0 [facility] Blood 01/16/2018 8:19 AM EDT 01/16/2018 8:25 AM EDT [facility] Elyssa THAKKAR LAB BLOOD ORDERABLES Final R esult [address] [address] * Free T4 (01/16/2018 8:19 AM EDT) FREE T4 1.2 0.9 - 1.7 ng/dL [facility] Blood 01/16/2018 8:19 AM EDT 01/16/2018 8:25 AM EDT Collette [facility] LAB BLOOD ORDERABLES Final R esult [address] [address] * (ABNORMAL) TSH (01/16/2018 8:19 AM EDT) TSH 4.23(H) 0.27 - 4.20 uIU/mL [facility] Blood 01/16/2018 8:19 AM EDT 01/16/2018 8:25 AM EDT September Elyssa PAGE LAB BLOOD ORDERABLES Final R esult [facility] [address] [place] [address] documented in this encounter Visit Diagnoses Diagnosis Myxedema heart disease- Primary Unspecified hypothyroidism Pure hypercholesterolemia Benign prostatic hyperplasia, unspecified whether lower urinary tract symptoms present documented in this encounter Care Teams Brilliandeer Lopper Relationship Specialty Start Date End Date Nickolas Riddle DO [email or web address] PCP - General Internal Medicine 04/13/17 07/08/24 Nickolas Riddle DO [address] [place] [address] [email or web address] PCP - General Internal Medicine 07/09/24 Nickolas Riddle DO [email or web address] Historical LMR Provider 03/27/17 Theo Proctor MD [address] [place] [address] [email or web address] Historical LMR Provider 03/27/17 06/18/21 Adam Gauthier MD [address] [place] [address] Historical LMR Provider 03/27/17 documented as of this encounter Additional Source Comments The information contained in this document represents components of the legal health record. It is not the complete legal health record.[facility]
--- OUTSIDE RECORDS SUMMARY | 2025-02-05 09:37 | XMS_ITS | Encounter Summary ---
Author Organization [facility] Address [address] [facility] [address] [place] [address] Phone Care Team Providers Care Agricultural Commodities Inspector Name Role Phone Nickolas Riddle DO Unavailable Bigda, Nickolas A DO Primary Care Provider [phone] Bigda, Nickolas A DO Primary Care Provider [phone] Reason for Referral * MRI/CAT Scan - Closed Specialty Diagnoses / Procedures Referred By Contac t Referred To Contact Radiology Diagnoses Abnormal result of other cardiovascular function study Procedures NC Stress Result for Nuclear Stress Test Emili Aldrich PA [address] [facility] [place] [address] Phone: tel: fax: Referral ID Status Reason Start Date Expiration Date Visits Re quested Visits Authorized [id number] Closed 11/27/2023 11/26/2024 1 1 Encounter Details Date Type Department Care Team (Latest Contact Info) Description 11/27/2023 Ancillary Orders Virtual Department [address] [place] [address] Emili Aldrich PA [address] [place] [address] Abnormal result of other cardiovascular function study [...] as of this encounter Results * NC Stress Result for Nuclear Stress Test (11/27/2023 11:32 AM EDT) Max Predicted Heart Rate 153 bpm [facility] Max BP Systolic 174 mmHg [facility] Max HR 137 BPM [facility] Resting HR 62 BPM [facility] Resting BP Systolic 104 mmHg [facility] Resting BP Diastolic 68 mmHg [facility] Peak METS 7.5 METS [facility] Peak HR 136 BPM [facility] Anatomical Region Laterality Modality Heart Other 11/27/2023 9:53 AM EDT 11/27/2023 11:12 AM EDT Narrative 11/27/2023 11:36 AM EDT Stress Findings The resting heart rate was 62 BPM. The resting BP was 104/68 mmHg. A peak heart rate of 136 BPM was achieved. ECG REPORT- Pt exercised for 7:32 min on a FLORA protocol achieving 8.4 METS. Test terminated due to fatigue. Baseline resting HR was 62 bpm. Max heart rate achieved was 137 bpm (89% MPHR). 1. EKG - Baseline EKG showed sinus rhythm with incomplete RBBB. During exercise there were no ischemic EKG changes , however EKG's did progress to a complete RBBB with exercise. 2. SYMPTOMS - No chest pain 3. EXERCISE PHYSIOLOGY - Average functional capacity for age. BP 104/68 at rest, BP 174/ palp during exercise, BP 136/50 on discharge from stress lab. 4. ARRHYTHMIAS - None Conclusion - There were no EKG changes suggestive of ischemia. There were no reported symptoms concerning for angina. Nuclear images pending and will be reported separately. Emi Medina PROJECT COACH with Dr. Welch Response to Stress The patient exercised for minutes and seconds, achieving 7.5 METS at peak exercise. Baseline blood pressure was 104/68 mmHg, and baseline heart rate was 62 bpm. The patient achieved a peak heart rate of 136 bpm, which is% of their maximum predicted heart rate. us Emili THAKKAR CV NM CARDIAC Final Resul t documented in this encounter Visit Diagnoses Diagnosis Abnormal result of other cardiovascular function study- Primary Abnormal result of other cardiovascular function study documented in this encounter Care Teams Agricultural Commodities Inspector Relationship Specialty Start Date End Date Nickolas Riddle DO PCP - General Internal Medicine 04/13/17 07/08/24 Nickolas Riddle DO [address] [place] [address] PCP - General Internal Medicine 07/09/24 Nickolas Riddle DO Historical LMR Provider 03/27/17 documented as of this encounter Additional Source Comments The information contained in this document represents components of the legal health record. It is not the complete legal health record.[facility]
--- OUTSIDE RECORDS SUMMARY | 2025-02-05 09:37 | XMS_ITS | Encounter Summary ---
Author Organization [facility] Address [address] [place] [address] Phone Care Team Providers Care Superintendent Sanitation Name Role Phone Nickolas Riddle DO Unavailable Theo Proctor MD Unavailable + [phone] Adam Gauthier MD Unavailable [phone] Nickolas Riddle DO Primary Care Provider [phone] Nickolas Riddle DO Primary Care Provider [phone] Encounter Details Date Type Department Care Team (Late st Contact Info) Description 10/10/2018 Procedure [facility] Admitting Dept Virtual Department [address] [place] [address] Social History Tobacco Use Types Packs/Day Years [...] on filedocumented in this encounter Care Teams Superintendent Sanitation Relationship Specialty Start Date End Date Nickolas Riddle DO PCP - General Internal Medicine 04/13/17 07/08/24 Nickolas Riddle DO [address] [place] [address] PCP - General Internal Medicine 07/09/24 Nickolas Riddle DO Historical LMR Provider 03/27/17 Theo Proctor MD [address] [place] [address] [email or web address] Historical LMR Provider 03/27/17 06/18/21 Adam Gauthier MD [address] [place] [address] Historical LMR Provider 03/27/17 documented as of this encounter Additional Source Comments The information contained in this document represents components of the legal health record. It is not the complete legal health record.[facility]
--- OUTSIDE RECORDS SUMMARY | 2025-02-05 09:37 | XMS_ITS | Encounter Summary ---
Author Organization [facility] Address [address] [place] [address] [place] [address] Phone Care Team Providers Care Senior Systems Architect Name Role Phone Nickolas Riddle DO Unavailable Bigda, Nickolas A DO Primary Care Provider [phone] Bigda, Nickolas A DO Primary Care Provider [phone] Encounter Details Date Type Department Care Team (Late st Contact Info) Description 10/29/2023 Procedure [facility], Ct Scan - [address] [address] Social History Tobacco Use Types Packs/Day Years [...] on filedocumented in this encounter Care Teams Senior Systems Architect Relationship Specialty Start Date End Date Nickolas Riddle DO [email or web address] PCP - General Internal Medicine 04/13/17 07/08/24 Nickolas Riddle DO [address] [place] [address] [email or web address] PCP - General Internal Medicine 07/09/24 Nickolas Riddle DO [email or web address] Historical LMR Provider 03/27/17 documented as of this encounter Additional Source Comments The information contained in this document represents components of the legal health record. It is not the complete legal health record.[facility]
--- OUTSIDE RECORDS SUMMARY | 2025-02-05 09:37 | XMS_ITS | Encounter Summary ---
Author Organization Located Within [facility] Address [address] [facility] [address] [place] [address] Phone Care Team Providers Care Operations Logistics Analyst Name Role Phone Nickolas Riddle DO Unavailable Bigda, Nickolas A DO Primary Care Provider [phone] Bigda, Nickolas A DO Primary Care Provider [phone] Reason for Referral * MRI/CAT Scan - Closed Specialty Diagnoses / Procedures Referred By Contac t Referred To Contact Radiology Diagnoses Dyspnea, unspecified type Shortness of breath Procedures CT Chest CHG DIAGNOSTIC COMPUTED TOMOGRAPHY THORAX W/O CNTRST Emili Aldrich PA [address] [facility] [place] [address] Phone: tel: fax: Referral ID Status Reason Start Date Expiration Date Visits Re quested Visits Authorized [id number] Closed 10/29/2023 12/28/2023 1 1 * Outpatient Procedure - Closed Specialty Diagnoses / Procedures Referred By Contac t Referred To Contact Radiology Diagnoses Dyspnea, unspecified type Shortness of breath Procedures Adult Echo TTE Emili Aldrich PA 6 [facility] [place] [address] Phone: tel: fax: Referral ID Status Reason Start Date Expiration Date Visits Re quested Visits Authorized [id number] Closed 10/29/2023 10/28/2024 1 1 Encounter Details Date Type Department Care Team (Latest Contact Info) Description 10/29/2023 Transcribe Orders Virtual Department [address] [place] [address] Emili Aldrich PA [address] [facility] [place] [address] Dyspnea, unspecified type (Primary Dx); Shortness of breath Social History Tobacco Use Types Packs/Day Years [...] documented as of this encounter Results * CT CHEST WITHOUT CONTRAST (12/03/2023 9:01 AM EDT) Anatomical Region Laterality Modality Chest Computed Tomogra phy 12/04/2023 11:2 3 AM EDT Impressions 12/04/2023 11:38 AM EDT * Scattered areas of tree-in-bud nodularity and groundglass opacity most pronounced at the right lower and left upper lobes. Differential considerations are broad and include infectious versus inflammatory etiologies such as multifocal typical/atypical pneumonia or aspiration. Correlation with clinical history recommended. Follow- up CT in three months recommended to ensure resolution. Narrative 12/04/2023 11:[address] CHEST WITHOUT CONTRAST Referring clinician's provided indication for this examination in Epic: Outside Radiology Order; dyspnea TECHNIQUE: Multidetector CT of the chest was performed without intravenous contrast using tailored dose modulation. COMPARISON: Chest radiography 10/04/2023 FINDINGS: Devices/Tubes/Lines: None. Lungs: There is a small amount of layering debris at the distal trachea and left main bronchus. There were scattered areas of tree-in-bud nodularity and groundglass opacity most pronounced at the right lower and left upper lobes. Mild diffuse bronchial wall thickening. The central airways are otherwise clear. Limited evaluation for discrete pulmonary nodules given airspace opacity. Pleura: No pleural effusion or pneumothorax. Mediastinum: No thyroid nodules. The heart is normal in size. There is no pericardial effusion.. Lymph Nodes: There are multiple calcified mediastinal lymph nodes which may reflect sequela of prior granulomatous disease. No enlarged supraclavicular, axillary, mediastinal, or hilar lymph nodes within limitations in the absence of intravenous contrast. Upper Abdomen: No abnormality detected in the visualized upper abdomen. Absence of intravenous contrast limits sensitivity for detecting solid organ findings. Chest Wall: No chest wall mass. Bones: Multilevel degenerative changes of the spine. No destructive osseous lesions. Procedure Note Lashonda Houser MD - 12/04/2023 CT CHEST WITHOUT CONTRAST Referring clinician's provided indication for this examination in Epic:Outside Radiology Order; dyspnea TECHNIQUE: Multidetector CT of the chest was performed without intravenouscontrast using tailored dose modulation. COMPARISON: Chest radiography 10/04/2023 FINDINGS: Devices/Tubes/Lines: None. Lungs: There is a small amount of layering debris at the distal tracheaand left main bronchus. There were scattered areas of [id number] and groundglass opacity most pronounced at the right lower andleft upper lobes. Mild diffuse bronchial wall thickening. The centralairways are otherwise clear. Limited evaluation for discrete pulmonarynodules given airspace opacity. Pleura: No pleural effusion or pneumothorax. Mediastinum: No thyroid nodules. The heart is normal in size. There is nopericardial effusion.. Lymph Nodes: There are multiple calcified mediastinal lymph nodes whichmay reflect sequela of prior granulomatous disease. No enlargedsupraclavicular, axillary, mediastinal, or hilar lymph nodes withinlimitations in the absence of intravenous contrast. Upper Abdomen: No abnormality detected in the visualized upper abdomen.Absence of intravenous contrast limits sensitivity for detecting solidorgan findings. Chest Wall: No chest wall mass. Bones: Multilevel degenerative changes of the spine. No destructiveosseous lesions. IMPRESSION: * Scattered areas of tree-in-bud nodularity and groundglass opacity mostpronounced at the right lower and left upper lobes. Differentialconsiderations are broad and include infectious versus inflammatoryetiologies such as multifocal typical/atypical pneumonia or aspiration.Correlation with clinical history recommended. Follow-up CT in threemonths recommended to ensure resolution. us Emili THAKKAR IMG CT CHEST Final Resul t * TTE COMPREHENSIVE (11/14/2023 1:00 PM EDT) Body Surface Area 2.17 m2 Height 177 cm Weight 100 kg Systolic BP 110 mmHg Diastolic BP 50 mmHg Left Atrium Dimension Anterior-Posterior 31 15 - 40 mm Aortic Valve Mean Gradient 2 mmHg Aortic Valve Mean Gradient 2 mmHg Aortic Valve Time Velocity Integral 213.0 mm Aortic Valve Peak Velocity 106.0 cm/s Aortic Valve Peak Gradient 4 mmHg Aortic Sinus Diameter 35 <40 mm Ascending Aorta Diameter 31 <36 mm Inferior Vena Cava Diameter 14 <21 mm Interventricular Septum Thickness 10 6 - 11 mm Left Ventricle Internal Diameter End Diastole 46 42 - 58 mm Left Ventricle Internal Diameter End Systole 29 <40 mm Left Ventricular Outflow Tract Diameter 21.0 mm LVOT VTI REST 190.0 mm Left Ventricular Outflow Tract Velocity 1.0 m/s Left Ventricular Outflow Tract Gradient at Rest 4 mmHg Left Ventricular Posterior Wall Thickness 10 6 - 11 mm Ejection Fraction 65 50 - 75 Percent Mitral Valve A Wave Speed 74.6 cm/s Mitral Valve E Wave Speed 71.6 cm/s Right Ventricle Basal Diameter 33 25 - 41 mm Tricuspid Valve Peak Velocity 2.2 m/s Raw LV EF% 60 % Relative Wall Thickness 0.43 0.22 - 0.42 Aortic Valve Prosthetic Peak Gradient 4 mmHg Aortic Valve Sinus Index by BSA 16 mm/m2 Aorta Sinus Index by Height 1.98 cm/m Aorta Sinus CSA index by Height 5.43 cm2/m Ascending Aorta Index 14 mm/m2 Asc Aorta CSA Index by Height 4.26 cm2/m Right Ventricle to Right Atrium Pressure Gradient 19 mmHg Right Ventricle Peak Systolic Pressure (Assuming RAP 10) 29 mmHg RVSP (Exclusive of RAP) 19 mmHg Ascending Aorta Index 14 mm Aortic Sinus Index 16 mm Ascending Aorta Diameter 14 mm Aortic Valve Sinus Index 1 16 20 - 32 mm AO ASC DIAM BSA INDEX 14.29 Left Atrial Volume Index 15 16 - 34 mL/m2 Left Ventricle E Wave Speed 71.6 cm/s Right Ventricle TAPSE 15 >=17 mm Left Ventricle Ea Lateral Wave Speed 8.5 cm/s Right Ventricle Pulse Doppler S Wave 11.5 >=9.5 cm/s MV E/E' Tissue Velocity Lateral 8.42 Left Ventricle A Wave Speed 74.6 cm/s MV E/A ratio 1.0 Left Ventricle Ea Septal Wave Speed 11.3 cm/s MV E/e' septal 6.34 Left Ventricle E/e' Average 7.4 Left Atrial Volume 32 mL Left Atrial Volume Index by Height 18 mL/m Right Atrium Area 11 cm2 Right Atrium Area index 5 cm2/m2 Echo E/Ea 6.34 Right Ventricle Peak Systolic Pressure 22 mmHg Right Atrium Pressure Estimated 3 mmHg Anatomical Region Laterality Modality Heart Ultrasound Narrative 11/15/2023 2:43 PM EDT Normal LV size and wall thickness. LV systolic function is normal with EF 60 to 65%. There are no clear wall motion abnormalities. Normal diastolic function. Normal RV size and function. There is no hemodynamically significant valvular disease. Pulmonary artery systolic pressure cannot be accurately estimated. No prior study for comparison. Left Ventricle The left ventricle is normal in size. There is normal wall thickness. There is normal left ventricular systolic function. The LV ejection fraction is 65%. There are no wall motion abnormalities. LV diastolic function appears within normal limits for age. The e' septal wave velocity is 11.3 cm/s. The e' lateral wave velocity is 8.5 cm/s. The average E/e' ratio is 7.4. Right Ventricle The right ventricle is normal in size. The RV basal dimension is 33 mm. There is normal right ventricular systolic function. Left Atrium The left atrium is normal in size. The left atrial anterior-posterior dimension is 31 mm. The left atrial volume index by BSA is 15 mL/m2. There are normal flow patterns in the pulmonary vein. Right Atrium The right atrium is normal in size. The right atrial area is 11 cm2. The IVC is normal in size with normal inspiratory collapse. The IVC diameter is 14 mm. Mitral Valve There is no obvious structural abnormality. There is no mitral stenosis. There is trace mitral regurgitation. Tricuspid Valve There is no obvious structural abnormality. There is no tricuspid stenosis. There is trace tricuspid regurgitation. The RV systolic pressure was calculated at 22 mmHg (using TR peak velocity of 2.2 m/s and assuming an RA pressure of 3 mmHg). The calculated peak RV-RA pressure gradient is 19 mmHg. Normal pulmonary pressure. Aortic Valve There is no obvious structural abnormality. The aortic valve is tricuspid. There is no aortic stenosis. There is no aortic regurgitation. The visualized portions of the thoracic aorta appear normal in size. Pulmonic Valve There is no obvious structural abnormality. There is no pulmonic stenosis. There is trace pulmonic regurgitation. Pericardium There is no pericardial effusion. General Findings Technically adequate echocardiogram. Technique(s) used in the evaluation: Color flow Doppler and Spectral Doppler. The predominant rhythm during the study was sinus. Comparison Findings There are no prior studies for comparison. IAS/IVS The interatrial septum appears normal. Emili THAKKAR CV ECHO ORDERABLES Final Re sult documented in this encounter Visit Diagnoses Diagnosis Dyspnea, unspecified type- Primary Dyspnea, unspecified type Dyspnea, unspecified type documented in this encounter Care Teams Operations Logistics Analyst Relationship Specialty Start Date End Date Nickolas Riddle DO PCP - General Internal Medicine 04/13/17 07/08/24 Nickolas Riddle DO [address] [place] [address] [email or web address] PCP - General Internal Medicine 07/09/24 Nickolas Riddle DO [email or web address] Historical LMR Provider 03/27/17 documented as of this encounter Additional Source Comments The information contained in this document represents components of the legal health record. It is not the complete legal health record.Located Within [facility]
--- OUTSIDE RECORDS SUMMARY | 2025-02-05 09:37 | XMS_ITS | Encounter Summary ---
Author Organization [facility] Address [address] [facility] [address] [place] [phone] Phone Care Team Providers Care Coffee Weigher Name Role Phone Nickolas Riddle DO Unavailable Nickolas Riddle DO Primary Care Provider [phone] Encounter Details Date Type Department Care Team (Latest Contact Info) Description 11/18/[address] [facility] [address] [place] [address] Emili Aldrich PA [address] [facility] [address] [place], [place] [id number] Screening for prostate cancer (Primary Dx); Central hypothyroidism; Routine general medical examination at a health care facility Social History Tobacco Use Types Packs/Day Years [...] documented as of this encounter Results * Free T4 (11/18/2024 10:18 AM EDT) FREE T4 1.4 0.9 - 1.7 ng/dL [facility] Blood 11/18/2024 10:1 8 AM EDT 11/18/2024 10:23 AM EDT us Emili THAKKAR LAB BLOOD ORDERABLES Final Result Performing Organization Address City/[facility]/ZIP Co de Phone Number [address] [address] * (ABNORMAL) TSH (11/18/2024 10:18 AM EDT) TSH 4.58(H) 0.27 - 4.20 uIU/mL [facility] Blood 11/18/2024 10:1 8 AM EDT 11/18/2024 10:23 AM EDT us Emili THAKKAR LAB BLOOD ORDERABLES Final Result Performing Organization Address [facility]/ZIP Co de Phone Number [address] [address] * (ABNORMAL) 25-OH vitamin D (11/18/2024 10:18 AM EDT) 25 OH VIT D (TOTAL) 21(L) 30 - 60 ng/mL [facility] Blood 11/18/2024 10:1 8 AM EDT 11/18/2024 10:23 AM EDT Emili THAKKAR LAB BLOOD ORDERABLES Final Result Performing Organization Address City/[facility]/ZIP Co de Phone Number [address] [address] * Hemoglobin A1c (11/18/2024 10:18 AM EDT) HEMOGLOBIN A1C 5.1 4.3 - 5.8 % [facility] Blood 11/18/2024 10:1 8 AM EDT 11/18/2024 10:23 AM EDT Emili THAKKAR LAB BLOOD ORDERABLES Final Result Performing Organization Address City/[facility]/ZIP Co de Phone Number [address] [address] * PSA (screening) (11/18/2024 10:18 AM EDT) Pathologist [facility] PSA 2.59 0 - 4.00 ng/mL [facility] Comment: Test Methodology Elisha [id number] Patient results determined by assays using different manufacturers or methods may not be comparable. Blood 11/18/2024 10:1 8 AM EDT 11/18/2024 10:24 AM EDT Emili THAKKAR LAB BLOOD ORDERABLES Final Result Performing Organization Address City/[facility]/ZIP Co de Phone Number [address] [address] * (ABNORMAL) Lipid panel (11/18/2024 10:18 AM EDT) Pathologist [facility] HDL 32 mg/dL [facility] Comment: Interpretation <40 mg/dL: Low HDL cholesterol (major risk factor for CHD) Greater than or equal to 60 mg/dL: High HDL cholesterol ( negative risk factor for CHD) HDL - cholesterol is affected by a number of factors, e.g. smoking, excerise, hormones, sex and age. CHOLESTEROL 188 0 - 240 mg/dL [facility] TRIGLYCERIDES 223(H) 30 - 160 mg/dL [facility] LDL 111 50 - 129 mg/dL [facility] Comment: LDL levels in terms of risk for coronary heart disease: <100 mg/dL: Optimal 100-129 mg/dL: Near or above optimal 130-159 mg/dL: Borderline high 160-189 mg/dL: High >190 mg/dL: Very High CARDIAC RISK RATIO 5.9(H) 3.4 - 5.0 C [facility] Blood 11/18/2024 10:1 8 AM EDT 11/18/2024 10:24 AM EDT us Emili THAKKAR LAB BLOOD ORDERABLES Final Result [address] [address] * (ABNORMAL) CBC and differential (11/18/2024 10:18 AM EDT) WBC 8.10 4.00 - 11.00 K/uL [facility] RBC 4.78 4.50 - 5.90 M/uL [facility] HGB 14.8 13.5 - 17.5 g/dL [facility] HCT 44.6 41.0 - 53.0 % [facility] PLT 123(L) 150 - 450 K/uL [facility] MCV 93.3 80.0 - 100.0 fL [facility] MCH 31.0 27.0 - 31.0 pg [facility] MCHC 33.2 32.0 - 36.0 g/dL [facility] RDW 13.3 11.5 - 14.5 % [facility] MPV 12.6(H) 8.4 - 12.0 fL [facility] NRBC 0.20(H) 0.00 /100 WBCs [facility] ABSOLUTE NRBC 0.02(H) 0.00 K/uL [facility] DIFF METHOD Auto [facility] NEUTS 29.2(L) 48.0 - 76.0 % [facility] LYMPHS 62.1(H) 18.0 - 41.0 % [facility] Comment: Moderate Atypical Lymphs MONOS 4.2 4.0 - 11.0 % [facility] EOS 3.8 0.0 - 5.0 % [facility] BASOS 0.7 0.0 - 1.5 % [facility] Granulocytes, immature (%) 0.0 0.0 - 0.9 % [facility] ABSOLUTE NEUTS 2.36 1.92 - 7.60 K/uL [facility] ABSOLUTE LYMPHS 5.03(H) 0.72 - 4.10 K/uL [facility] ABSOLUTE MONOS 0.34 0.16 - 1.10 K/uL [facility] ABSOLUTE EOS 0.31 0.00 - 0.50 K/uL [facility] ABSOLUTE BASOS 0.06 0.00 - 0.15 K/uL [facility] Granulocytes, immature 0.00 0.00 - 0.09 K/uL [facility] Blood 11/18/2024 10:1 8 AM EDT 11/18/2024 10:23 AM EDT us Emili THAKKAR LAB BLOOD ORDERABLES Final Result [address] [address] * Comprehensive metabolic panel (11/18/2024 10:18 AM EDT) SODIUM 140 133 - 146 mmol/L [facility] POTASSIUM 4.6 3.3 - 5.1 mmol/L [facility] CHLORIDE 103 96 - 108 mmol/L [facility] CO2 30 21 - 35 mmol/L [facility] BUN 13 6 - 19 mg/dL [facility] CREATININE 1.00 0.5 - 1.5 mg/dL [facility] GLUCOSE 98 70 - 99 mg/dL [facility] ALBUMIN 4.1 3.9 - 4.8 g/dL [facility] TOTAL PROTEIN 6.6 6.5 - 8.0 g/dL [facility] CALCIUM 9.5 8.4 - 10.3 mg/dL [facility] ALKALINE PHOSPHATASE 96 39 - 117 U/L [facility] TOTAL BILIRUBIN 0.8 0.0 - 1.2 mg/dL [facility] AST 22 0 - 37 U/L [facility] ALT 23 0 - 40 U/L [facility] GLOBULIN 2.5 1 - 4.8 g/dL [facility] EGFR 82 >59 mL/min/1.7 3m2 [facility] Comment:Estimated glomerular filtration rate calculated using the CKD-EPI refit equation. ANION GAP 12 10 - 20 mmol/L [facility] Blood 11/18/2024 10:1 8 AM EDT 11/18/2024 10:23 AM EDT Emili THAKKAR LAB BLOOD ORDERABLES Final Result [facility] [address] [place] [address] documented in this encounter Visit Diagnoses Diagnosis Screening for prostate cancer- Primary Special screening for malignant neoplasm of prostate Central hypothyroidism Unspecified hypothyroidism Routine general medical examination at a health care facility documented in this encounter Care Teams Coffee Weigher Relationship Specialty Start Date End Date Nickolas Riddle DO [address] [place] [address] PCP - General Internal Medicine 07/09/24 Nickolas Riddle DO Historical LMR Provider 03/27/17 documented as of this encounter Additional Source Comments The information contained in this document represents components of the legal health record. It is not the complete legal health record.[facility]
--- OUTSIDE RECORDS SUMMARY | 2025-02-05 09:37 | XMS_ITS | Encounter Summary ---
Author Organization [facility] Address [address] [facility] [address] [place] [phone] Phone Care Team Providers Care Estate And Trust Tax Principal Name Role Phone Nickolas Riddle DO Unavailable Bigda, Nickolas A DO Primary Care Provider [phone] Bigda, Nickolas A DO Primary Care Provider [phone] Encounter Details Date Type Department Care Team (Latest Contact Info) Description 05/03/2022 Transcribe Orders Virtual Department [address] [place] [address] Emili Aldrich PA [address] [place] [address] [address] [place] [address] Mild persistent asthma without complication (Primary Dx) Social History Tobacco Use Types [...] XR CHEST PA AND LATERAL 2 VIEWS (05/16/2022 10:23 AM EST) Anatomical Region Laterality Modality Chest Computed Radiogr aphy 05/16/2022 10:3 0 AM EST Impressions 05/16/2022 10:31 AM EST No acute findings. Narrative 05/16/2022 10:31 AM EST XR CHEST PA AND LATERAL 2 VIEWS COMPARISON: April 22, 2019 FINDINGS: Lungs: Clear lungs. No pneumonia or pulmonary edema. Pleura: No pleural effusion. No pneumothorax Heart/Mediastinum: Heart size normal. Bones/Soft Tissues: No acute finding Procedure Note Rome Richards MD, [facility] - 05/16/2022 XR CHEST PA AND LATERAL 2 VIEWS COMPARISON: April 22, 2019 FINDINGS: Lungs: Clear lungs. No pneumonia or pulmonary edema. Pleura: No pleural effusion. No pneumothorax Heart/Mediastinum: Heart size normal. Bones/Soft Tissues: No acute finding IMPRESSION: No acute findings. Emili THAKKAR IMG XR CHEST Final Resul t documented in this encounter Visit Diagnoses Diagnosis Mild persistent asthma without complication- Primary Mild persistent asthma without complication documented in this encounter Care Teams Estate And Trust Tax Principal Relationship Specialty Start Date End Date Nickolas Riddle DO PCP - General Internal Medicine 04/13/17 07/08/24 Nickolas Riddle DO [address] [place] [address] PCP - General Internal Medicine 07/09/24 Nickolas Riddle DO Historical LMR Provider 03/27/17 documented as of this encounter Additional Source Comments The information contained in this document represents components of the legal health record. It is not the complete legal health record.[facility]
== END 2025-02-05 08:50 | disposition home or self-care (01) ==
LOC: HO.US 08:49
PROVIDERS: PCP Internal Medicine; Visit Provider Nurse Practitioner Family
DX: R10.811 Right upper quadrant abdominal tenderness (principal); R17 Unspecified jaundice; R16.1 Splenomegaly, not elsewhere classified
CPT/HCPCS: 76700

== ENCOUNTER → 2025-02-05 08:54 | Outpatient (BNV) | payer OTHER, SELFPAY | PROVIDERS: PCP Internal Medicine; Visit Provider Radiology Diagnostic Radiology | DX: N20.0 Calculus of kidney (principal); N28.1 Cyst of kidney, acquired | CPT/HCPCS: 76700 ==

== ENCOUNTER 2025-03-31 07:40 | Outpatient (REF) | payer OTHER, SELFPAY ==
--- OUTSIDE RECORDS SUMMARY | 2025-03-31 07:42 | XMS_ITS | Encounter Summary ---
Author Organization [facility] Address [address] [facility] [address] [place] [address] Phone Care Team Providers Care Medical Planner Name Role Phone Nickolas Riddle DO Unavailable Theo Proctor MD Unavailable + [phone] Adam Gauthier MD Unavailable [phone] Nickolas Riddle DO Primary Care Provider [phone] Nickolas Riddle DO Primary Care Provider [phone] Encounter Details Date Type Department Care Team (Late st Contact Info) Description 10/04/[address] [facility] [address] [place] [address] Nickolas Riddle DO [address] [facility] [address] [place], [place] [id number] [email or web address] Myxedema heart disease (Primary Dx) Social History [...] EDT) TSH 5.22(H) 0.27 - 4.20 uIU/mL [facility] Blood 10/04/2018 8:34 AM EDT 10/04/2018 8:58 AM EDT us Nickolas A Barryda DO LAB BLOOD ORDERABLES Final Resul t Performing Organization Address City/[facility]/ZIP Co de Phone Number [address] [address] * T4, total (10/04/2018 8:34 AM EDT) THYROXINE 7.5 4.6 - 12.0 ug/dL [facility] Blood 10/04/2018 8:34 AM EDT 10/04/2018 8:58 AM EDT us Nickolas Riddle DO LAB BLOOD ORDERABLES Final Resul t Performing Organization Address [facility] Co de Phone Number [address] [address] documented in this encounter Visit Diagnoses Diagnosis Myxedema heart disease- Primary Unspecified hypothyroidism documented in this encounter Care Teams Medical Planner Relationship Specialty Start Date End Date Nickolas Riddle DO PCP - General Internal Medicine 04/13/17 07/08/24 Nickolas Riddle DO [address] [place] [address] PCP - General Internal Medicine 07/09/24 Nickolas Riddle DO Historical LMR Provider 03/27/17 Theo Proctor MD [address] [place] [address] [email or web address] Historical LMR Provider 03/27/17 06/18/21 Adam Gauthier MD [address] [place] [address] Historical LMR Provider 03/27/17 documented as of this encounter Additional Source Comments The information contained in this document represents components of the legal health record. It is not the complete legal health record.[facility]
--- OUTSIDE RECORDS SUMMARY | 2025-03-31 07:43 | XMS_ITS | Encounter Summary ---
Author Organization [facility] Address [address] [place] [address] Phone Care Team Providers Care Automatic Centrifugal Station Operator Name Role Phone Nickolas Riddle DO Unavailable Theo Proctor MD Unavailable + [phone] Adam Gauthier MD Unavailable [phone] Nickolas Riddle DO Primary Care Provider [phone] Nickolas Riddle DO Primary Care Provider [phone] Encounter Details Date Type Department Care Team (Latest Contact Info) Description 11/18/2019 Transcribe Orders Virtual Department [address] [place] [address] Emili José PA-C [address] [place] [address]. [place] [address] Chest pain, unspecified type (Primary Dx) Social [...] Primary documented in this encounter Care Teams Automatic Centrifugal Station Operator Relationship Specialty Start Date End Date Nickolas Riddle DO PCP - General Internal Medicine 04/13/17 07/08/24 Nickolas Riddle DO [address] [place] [address] PCP - General Internal Medicine 07/09/24 Nickolas Riddle DO Historical LMR Provider 03/27/17 Theo Proctor MD [address] [place] [address] [email or web address] Historical LMR Provider 03/27/17 06/18/21 Adam Gauthier MD [address] [place] [address] Historical LMR Provider 03/27/17 documented as of this encounter Additional Source Comments The information contained in this document represents components of the legal health record. It is not the complete legal health record.[facility]
--- OUTSIDE RECORDS SUMMARY | 2025-03-31 07:43 | XMS_ITS | Encounter Summary ---
Author Organization [facility] Address [address] [facility] [address] [place] [address] Phone Care Team Providers Care Fraud Analyst Name Role Phone Nickolas Riddle DO Unavailable Bigda, Nickolas A DO Primary Care Provider [phone] Bigda, Nickolas A DO Primary Care Provider [phone] Encounter Details Date Type Department Care Team (Late st Contact Info) Description 10/03/2023 Transcribe Orders Virtual Department 30 [place] [address] Jolynn Syed MD [address] [place] [address] [email or web address] Mycoplasma infection, unspecified site (Primary Dx) Social [...] clinician's provided indication for this examination in [facility]: Other Indication (Please use free text); mycoplasma infection COMPARISON: May 16, 2022 FINDINGS: Lungs: No pneumonia or pulmonary edema. Pleura: No pleural effusion. No pneumothorax Heart/Mediastinum: Heart size normal. Bones/Soft Tissues: No acute finding Procedure Note Rome Richards MD, AVANI - 10/04/2023 XR CHEST PA AND LATERAL 2 VIEWS Referring clinician's provided indication for this examination in [facility]:Other Indication (Please use free text); mycoplasma infection [...] site documented in this encounter Care Teams Fraud Analyst Relationship Specialty Start Date End Date Nickolas Riddle DO PCP - General Internal Medicine 04/13/17 07/08/24 Nickolas Riddle DO [address] [place] [address] PCP - General Internal Medicine 07/09/24 Nickolas Riddle DO Historical LMR Provider 03/27/17 documented as of this encounter Additional Source Comments The information contained in this document represents components of the legal health record. It is not the complete legal health record.[facility]
--- OUTSIDE RECORDS SUMMARY | 2025-03-31 07:43 | XMS_ITS | Encounter Summary ---
Author Organization [facility] Address [address] [place] [address] Phone Care Team Providers Care Cracking Machine Operator Name Role Phone Nickolas Riddle DO Unavailable Theo Proctor MD Unavailable + [phone] Adam Gauthier MD Unavailable [phone] Nickolas Riddle DO Primary Care Provider [phone] Nickolas Riddle DO Primary Care Provider [phone] Encounter Details Date Type Department Care Team (Late st Contact Info) Description 12/14/2019 Procedure Pass [facility], Ct Scan - [address] [address] Social History Tobacco Use Types Packs/Day Years [...] on filedocumented in this encounter Care Teams Cracking Machine Operator Relationship Specialty Start Date End Date Nickolas Riddle DO PCP - General Internal Medicine 04/13/17 07/08/24 Nickolas Riddle DO [address] [place] [address] [email or web address] PCP - General Internal Medicine 07/09/24 Nickolas Riddle DO [email or web address] Historical LMR Provider 03/27/17 Teho Proctor MD [address] [place] [address] [email or web address] Historical LMR Provider 03/27/17 06/18/21 Adam Gauthier MD [address] [place] [address] Historical LMR Provider 03/27/17 documented as of this encounter Additional Source Comments The information contained in this document represents components of the legal health record. It is not the complete legal health record.[facility]
--- OUTSIDE RECORDS SUMMARY | 2025-03-31 07:43 | XMS_ITS | Encounter Summary ---
Author Organization [facility] Address [address] [place] [address] Phone Care Team Providers Care National [employer] Member Name Role Phone Nickolas Riddle DO Unavailable Theo Proctor MD Unavailable + [phone] Adam Gauthier MD Unavailable [phone] Nickolas Riddle DO Primary Care Provider [phone] Nickolas Riddle DO Primary Care Provider [phone] Encounter Details Date Type Department Care Team (Late st Contact Info) Description 10/10/2018 Procedure Pass [facility]oscopy Admitting Dept Virtual Department [address] [place] [address] Social History Tobacco Use Types Packs/Day Years [...] on filedocumented in this encounter Care Teams National [employer] Member Relationship Specialty Start Date End Date Nickolas Riddle DO PCP - General Internal Medicine 04/13/17 07/08/24 Nickolas Riddle DO [address] [place] [address] PCP - General Internal Medicine 07/09/24 Nickolas Riddle DO Historical LMR Provider 03/27/17 Theo Proctor MD [address] [place] [address] [email or web address] Historical LMR Provider 03/27/17 06/18/21 Adam Gauthier MD [address] [place] [address] Historical LMR Provider 03/27/17 documented as of this encounter Additional Source Comments The information contained in this document represents components of the legal health record. It is not the complete legal health record.[facility]
--- OUTSIDE RECORDS SUMMARY | 2025-03-31 07:43 | XMS_ITS | Encounter Summary ---
Author Organization [facility] Address [address] [address] Phone Care Team Providers Care Animal Maintenance Supervisor Name Role Phone Nickolas Riddle DO Unavailable Theo Proctor MD Unavailable + [phone] Adam Gauthier MD Unavailable [phone] Nickolas Riddle DO Primary Care Provider [phone] Nickolas Riddle DO Primary Care Provider [phone] Encounter Details Date Type Department Care Team (Late st Contact Info) Description 04/15/2019 Transcribe Orders Virtual Department [address] [place] [address] Nickolas Riddle DO [address] [facility] [place] [address] [place] [address] [email or web address] Pleurodynia (Primary Dx) Social History Tobacco Use [...] respiration documented in this encounter Care Teams Animal Maintenance Supervisor Relationship Specialty Start Date End Date Nickolas Riddle DO [email or web address] PCP - General Internal Medicine 04/13/17 07/08/24 Nickolas Riddle DO [address] [place] [address] [email or web address] PCP - General Internal Medicine 07/09/24 Nickolas Riddle DO [email or web address] Historical LMR Provider 03/27/17 Theo Proctor MD [address] [place] [address] [email or web address] Historical LMR Provider 03/27/17 06/18/21 Adam Gauthier MD [address] [place] [address] Historical LMR Provider 03/27/17 documented as of this encounter Additional Source Comments The information contained in this document represents components of the legal health record. It is not the complete legal health record.[facility]
--- OUTSIDE RECORDS SUMMARY | 2025-03-31 07:43 | XMS_ITS | Encounter Summary ---
Author Organization [facility] Address [address] [facility] [address] [place] [address] Phone Care Team Providers Care Pneumatic Deicer Inspector Name Role Phone Nickolas Riddle DO Unavailable Bigda, Nickolas A DO Primary Care Provider [phone] Bigda, Nickolas A DO Primary Care Provider [phone] Reason for Referral * MRI/CAT Scan - Closed Specialty Diagnoses / Procedures Referred By Contac t Referred To Contact Radiology Diagnoses Abnormal result of other cardiovascular function study Procedures NC Stress Result for Nuclear Stress Test Emili Aldrich PA [address] [facility] [place] [address] Phone: tel: fax: Referral ID Status Reason Start Date Expiration Date Visits Re quested Visits Authorized [id number] Closed 11/27/2023 11/26/2024 1 1 Encounter Details Date Type Department Care Team (Latest Contact Info) Description 11/27/2023 Ancillary Orders Virtual Department [address] [place] [address] Emili Aldrich PA 6 [place] [address] Abnormal result of other cardiovascular function study [...] [facility] Resting HR 62 BPM [facility] Resting BP Systolic 104 mmHg [facility] Resting BP Diastolic 68 mmHg [facility] Peak METS 7.5 METS [facility] Peak HR 136 BPM [facility] Anatomical Region Laterality Modality Heart Other 11/27/2023 [...] and will be reported separately. Emi Medina CONSTRUCTION TECH with Dr. Welch Response to Stress The [...] study documented in this encounter Care Teams Pneumatic Deicer Inspector Relationship Specialty Start Date End Date Nickolas Riddle DO PCP - General Internal Medicine 04/13/17 07/08/24 Nickolas Riddle DO [address] [place] [address] PCP - General Internal Medicine 07/09/24 Nickolas Riddle DO Historical LMR Provider 03/27/17 documented as of this encounter Additional Source Comments The information contained in this document represents components of the legal health record. It is not the complete legal health record.[facility]
--- OUTSIDE RECORDS SUMMARY | 2025-03-31 07:43 | XMS_ITS | Encounter Summary ---
Author Organization [facility] Address [address] [place] [address] [place] [address] Phone Care Team Providers Care Border Patrol Agent Name Role Phone Nickolas Riddle DO Unavailable Bigda, Nickolas A DO Primary Care Provider [phone] Bigda, Nickolas A DO Primary Care Provider [phone] Encounter Details Date Type Department Care Team (Late st Contact Info) Description 10/29/2023 Procedure Pass [facility], Ct Scan - [address] [address] Social History Tobacco Use Types Packs/Day Years [...] on filedocumented in this encounter Care Teams Border Patrol Agent Relationship Specialty Start Date End Date Nickolas Riddle DO [email or web address] PCP - General Internal Medicine 04/13/17 07/08/24 Nickolas Riddle DO [address] [place] [address] [email or web address] PCP - General Internal Medicine 07/09/24 Nickolas Riddle DO [email or web address] Historical LMR Provider 03/27/17 documented as of this encounter Additional Source Comments The information contained in this document represents components of the legal health record. It is not the complete legal health record.[facility]
--- OUTSIDE RECORDS SUMMARY | 2025-03-31 07:43 | XMS_ITS | Encounter Summary ---
Author Organization [facility] Address [address] [place] [address] Phone Care Team Providers Care Computer Systems Software Engineer Name Role Phone Nickolas Riddle Unavailable Theo Proctor MD Unavailable +- [phone] Adam Gauthier MD Unavailable [phone] Nickolas Riddle Kylah Primary Care Provider [phone] Nickolas Riddle DO Primary Care Provider [phone] Encounter Details Date Type Department Care Team (Latest Contact Info) Description 02/05/2018 Transcribe Orders [facility] [address] [place] [address] Collette Bergeron PA-C [address] [place] [address] [email or web address] Male hypogonadism (Primary Dx); Restless legs; Screening [...] FREE TESTOSTERONE 6.20 3.67 - 13.9 ng/dL [facility] Comment: (NOTE) ADDITIONAL INFORMATION Testing performed by [facility]. This test was developed and its performance characteristics determined by [facility] in a manner consistent with CLIA requirements. This test has not been cleared or approved by the U.S. Food and Drug Administration. TESTOSTERONE, TOTAL 310 240 - 950 ng/dL [facility] Comment: (NOTE) ADDITIONAL INFORMATION Testing performed by Liquid Chromatography-Tandem Mass Spectrometry (LC-MS/MS). This test was developed and its performance characteristics determined by [facility] in a manner consistent with CLIA requirements. This test has not been cleared or approved by the U.S. Food and Drug Administration. Blood 02/05/2018 8:10 AM EDT 02/05/2018 8:20 AM EDT [facility] LAB BLOOD ORDERABLES Final R esult Performing Organization Address [facility] Co de Phone Number [facility] [address] [place] [address] * Hepatitis C antibody, qualitative (02/05/2018 8:10 AM EDT) HCV Negative Negative [facility] Comment: This is a screening test and should be confirmed with molecular testing Blood 02/05/2018 8:10 AM EDT 02/05/2018 8:20 AM EDT [facility] LAB BLOOD ORDERABLES Final R esult Performing Organization Address [facility] Co de Phone Number [facility] [address] [place] [address] * Iron and iron binding capacity (02/05/2018 8:10 AM EDT) IRON 81 45 - 160 ug/dL [facility] IRON BINDING CAPACITY 236 228 - 428 ug/dL [facility] TRANSFERRIN SATURAT. 34 20 - 55 % [facility] Blood 02/05/2018 8:10 AM EDT 02/05/2018 8:20 AM EDT September Elyssa PAGE LAB BLOOD ORDERABLES Final R esult [facility] [address] [place] [address] documented in this encounter Visit Diagnoses Diagnosis Male hypogonadism- Primary Other testicular hypofunction Restless legs Restless legs syndrome (RLS) Screening for condition Screening for unspecified condition documented in this encounter Care Teams Computer Systems Software Engineer Relationship Specialty Start Date End Date Nickolas Riddle DO PCP - General Internal Medicine 04/13/17 07/08/24 Nickolas Riddle DO [address] [place] [address] PCP - General Internal Medicine 07/09/24 Nickolas Riddle DO Historical LMR Provider 03/27/17 Theo Proctor MD [address] [place] [address] Historical LMR Provider 03/27/17 06/18/21 Adam Gauthier MD [address] [place] [address] Historical LMR Provider 03/27/17 documented as of this encounter Additional Source Comments The information contained in this document represents components of the legal health record. It is not the complete legal health record.[facility]
--- OUTSIDE RECORDS SUMMARY | 2025-03-31 07:43 | XMS_ITS | Data Portability ---
Author Organization [facility], Telehealth Patient Home Address [address] [place] [address] Assessment Encounter Date Assessment Date Assessment LastModified by Organization Details LastModified Time 07/17/2022 07/17/2022 Patient agreed and verbally consents to this audio and video Telehealth appt via a secure platform [email or web address] Not available 07/17/2022 13:55:08 Plan of Treatment Reminders Order Date Submit Date Provider Last Modified By Organization Details Last Modified Time Details Appointments ANNUAL EXAM 2025 10:00A M DR MUNSON Not available Not available Not available Lab CMP, serum or plasma 2024 025 [facility], [place], [address], 11/18/2024 09:14:16 CBC w/ auto diff 2024 025 [facility], [place], [address], 11/18/2024 09:14:16 lipid panel, blood 2024 025 [facility], [place], [address], 11/18/2024 09:14:16 PSA, serum or plasma 2024 025 [facility], [place], [address], 11/18/2024 15:46:59 hemoglobi n A1c, QN, blood 2024 025 [facility], [place], [address], 11/18/2024 15:46:11 vitamin D, 25-hydrox y, total, serum 2024 025 [facility], [place], [address], 11/18/2024 09:14:16 TSH + free T4, serum 2024 025 [facility], [place], [address], 11/18/2024 09:14:16 anaplasma phagocyto philum (hga/hge) igg+igm Ab, serum 2023 024 [facility], [place], [address], 11/11/2023 09:05:17 ehrlichia chaffeens is, igg+igm Ab, serum 2023 024 [facility], [place], [address], 11/11/2023 15:36:15 lyme disease igg+igm, serum, reflex western blot 2023 024 [facility], [place], [address], 10/29/2023 09:19:27 rickettsi a rickettsi i igg+igm Ab, serum 2023 024 [facility], [place], [address], 10/29/2023 09:19:27 CMP, serum or plasma 2022 023 [facility], [address] [place] [address], [place], [address], 10/23/2022 13:09:30 CBC w/ auto diff 2022 023 [facility], [address] [place] [address], [address], 10/23/2022 13:09:29 lipid panel, blood 2022 023 [facility], [address] [place] [address], [address], 10/23/2022 13:08:52 TSH + free T4, serum 2022 023 [facility], [address] [place] [address], [address], 10/23/2022 09:30:37 Referral concrete pourer & immunolog ist referral 2022 023 estevan Posey, [address] [place] [address], [address], 10/24/2022 08:17:05 Procedures None recorded. Surgeries None recorded. Imaging electromy ogram + nerve conductio n study 2023 024 [email or web address] Alcantara MD, [address] [place] [address], [address], 11/06/2023 09:08:47 CT, chest, w/o contrast 2023 024 [email or web address] Not available 10/30/2023 08:19:23 PFT, complete 2023 024 [email or web address] Not available 12/26/2023 15:44:37 US, echocardi ogram 2023 024 [email or web address] Not available 10/30/2023 08:19:23 exercise stress test 2023 024 YONY Not available 11/09/2023 10:36:39 XR, chest, 2 view 2021 022 YONY Not available 05/16/2022 11:03:00 Medication Orders albuterol sulfate HFA 90 mcg/actua tion aerosol inhaler 2023 024 [facility], [address] [place] [address], [address], 10/29/2023 09:33:59 Paxlovid 300 mg (150 mg x 2)-100 mg tablets in a dose pack 2022 023 [email or web address] [id number], [address] [place], [address], 10/23/2022 09:04:51 albuterol sulfate HFA 90 mcg/actua tion aerosol inhaler 2021 022 [facility], [address] [place] [address], [address], 05/03/2022 09:52:01 Patient TargetsNo targets recorded. 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, [place], [address], 05/03/2022 09:39:08 05/16/20 22 05/16/2022 XR, chest , 2 view No observ ation record ed. [email or web address] [facility] [address], [place], [address], 05/16/2022 14:13:21 11/09/19 24 11/09/2023 exerc ise stres s test No observ ation record ed. [facility] (Scheduling Dept) [address] [place] [address], [address], 11/09/2023 10:36:39 11/15/19 24 11/14/2023 US, echoc ardio gram No observ ation record ed. [address], [address], 11/16/2023 08:39:49 11/22/19 24 11/21/2023 elect romyo gram + nerve condu ction study No observ ation record ed. [email or web address] Not Available 2023 08:43:53 11/29/19 24 11/27/2023 pharm acolo gic nucle ar stres s test No observ ation record ed. [facility] (Scheduling Dept) [address] [place] [address], [address], 11/29/2023 13:04:09 12/03/19 24 12/03/2023 PFT, compl ete No observ ation record ed. [facility] (Genetics) [address] [place] [address], [address], 12/03/2023 08:48:18 12/03/19 24 12/03/2023 PFT, compl ete No observ ation record ed. [facility] [address] [facility] [address], [place], [address], 12/26/2023 15:42:56 12/04/19 24 12/03/2023 CT, chest , w/o contr ast No observ ation record ed. [address], [address], 12/04/2023 12:24:09 02/06/20 25 02/05/2025 US, abdom en No observ ation record ed. [address] (Medical Records) [address] [place] [address], [address], 02/06/2025 09:10:35 Result Notes None recorded. 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 Not Available [facility] 3 03:59:48 Hypothyr oidism 23710869 Active 2017 BIJAN AUGUSTIN [address] [place], [address], [facility] 5 13:03:11 Asthma 685047379 Active 2017 Not Available [facility] 3 03:59:47 Allergic rhinitis 74984785 Active 2017 Not Available [facility] 3 03:59:47 Benign prostati c hyperpla lee 478601636 Active 2017 Lj Shah Not Available [facility] 3 03:59:47 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 Not Available [facility] 3 03:59:47 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 [facility] Monique syndrome - Davide/Swig bebeto Not Available [facility] 3 03:59:47 Post-tra umatic stress disorder 84679151 Active 2021 Not Available [facility] 3 03:59:47 Restless legs syndrome 32714037 Active 2021 Not Available [facility] 3 03:59:47 Fatigue 17334866 Active 2021 Not Available [facility] 3 03:59:48 Testoste jerrell level below referenc e range 165636746 Active 2021 Not Available [facility] 3 03:59:47 Depressi ve disorder 99033910 Active 2021 Not Available [facility] 3 03:59:47 COVID-19 532688769 Active 2022 BIJAN AUGUSTIN [address] [place] [address], [address], [facility] 3 13:52:58 Seasonal allergic rhinitis 054964482 Active 2022 BIJAN AUGUSTIN [address] [place] [address], [address], [facility] 3 09:31:41 Dyspnea 495099602 Active 2023 BIJAN AUGUSTIN [address] [place] [address], [address], [facility] 4 09:12:00 Edema of lower extremit y 852365833 Active 2023 BIJAN AUGUSTIN [address] [place] [address], [address], [facility] 4 09:13:38 Insomnia 399527279 Active 2023 BIJAN AUGUSTIN [address] [place] [address], [address], [facility] 4 09:30:15 Cardiova scular stress test abnormal 344356258 Active 2023 BIJAN AUGUSTIN [address] [place] [address], [address], [facility] 4 09:43:16 Lymphocy tosis 25291407 Active 2024 BIJAN AUGUSTIN [address] [place] [address], [address], [facility] 5 13:02:58 Problem Notes None recorded. Procedures Surgical History Date Name Laterality Status Provider Name and Address Organization Details Recorded Time 09/17/2017 I&D completed September YASMIN Bergeron [address] [place] [address], [phone], [facility] 09/17/2017 16:40:40 Imaging Results None recorded. Procedure Notes None recorded. Medical Equipment None Reported. Allergies Allergen ID Allergen Name Allergen Category Reaction Reaction Severity Criticality Documentation Date Start Date Code Code System Note Provider Name and Address Organization Details Recorded Time 824 Product containin g penicilli n (product) medicatio n Not available Not available Not available 09/17/2017 93998 8001 SNOMED Elva copeland [facility] 8 08:27:55 825 Vibramyci n medicatio n Not available Not available Not available 09/17/201724145 5 RxNorm Elva copeland [facility] 8 08:28:09 Medications Name Sig Start Date [...] completed Not Available Not Available Not Available [place] [employer]-1000 1 tablet qd 10/23 completed Not [...] completed Not Available Not Available Not Available Wixela Inhub 100 mcg-50 mcg/dose powder for inhalation Inhale 1 puff twice a day by inhalatio n route. active Not Available Not Available No t Available Fluzone Quad 60 mcg (15 mcg [...] in Arterial blood by Pulse oximetry Systolic And Diastolic Provider Name and Address Organization Details Last Updated DateTime 3 176.53 cm 34.7 kg/m2 320845. 7 g 71 /min 100 % 100 % 110/62 mm[Hg] [facility] 3 09:07:21 Date Recorded Body weight Body mass index (BMI) Body height Heart rate Oxygen saturation Oxygen saturation in Arterial blood by Pulse oximetry Systolic And Diastolic Provider Name and Address Organization Details Last Updated DateTime 4 070945. 46 g 34 kg/m2 176.53 cm 78 /min 98 % 98 % 124/72 mm[Hg] Kiley Drew [facility] 4 09:07:09 Date Recorded Body height Body mass index (BMI) Body weight Heart rate Oxygen saturation Oxygen saturation in Arterial blood by Pulse oximetry Systolic And Diastolic Provider Name and Address Organization Details Last Updated DateTime 5 176.53 cm 34.1 kg/m2 757372. 97 g 69 /min 96 % 96 % 116/68 mm[Hg] Kiley Drew [facility] 5 09:03:34 Date Recorded Body height Body mass index (BMI) Body weight Heart rate Oxygen saturation Oxygen saturation in Arterial blood by Pulse oximetry Systolic And Diastolic Provider Name and Address Organization Details Last Updated DateTime 2 176.53 cm 34.6 kg/m2 801314. 98 g 76 /min 99 % 99 % 108/72 mm[Hg] Alyssa Dean [facility] 2 09:40:20 Social History Question Answer Notes LastModified by [employer] ion Details LastModified Time Tobacco Smoking Status Never Smoker Not Available [facility] 04/13/2020 03:36:24 Do You Have An Advance Directive? Yes [id number] Information not available 04/13/2020 Are You Blind Or Do You Have Difficulty Seeing? No [id number] Information not available 04/13/2020 What Is Your Level Of Caffeine Consumption? None [id number] Information not available 04/13/2020 How Much Tobacco Do You Chew? None [id number] Information not available 04/13/2020 Are You Deaf Or Do You Have Serious Difficulty Hearing? No [id number] Information not available 04/13/2020 What Type Of Diet Are You Following? GLUTENFREE [id number] Information not available 04/13/2020 Education Post Graduate Information not available 09/16/2018 How Many Days Of Moderate To Strenuous Exercise, Like A Brisk Walk, Did You Do In The Last 7 Days? 4 [id number] Information not available 04/13/2020 On Those Days That You Engage In Moderate To Strenuous Exercise, How Many Minutes, On Average, Do You Exercise? 20 [id number] Information not available 04/13/2020 Are There Any Guns Present In Your Home? No [id number] Information not available 04/13/2020 Hard Of Hearing Or Deaf In One Or Both Ears? No Information not available 09/16/2018 Live Alone Or With Others? With Others Information not available 09/16/2018 What Was The Date Of Your Most Recent Tobacco Screening? 11/18/2024 [email or web address] Information not available 11/18/2024 How Many Children Do You Have? 0 [id number] Information not available 04/13/2020 Performs Monthly Self-breast Exam? No Information not available 09/16/2018 Seat Belts Used Routinely Yes Information not available 09/16/2018 Are You Sexually Active? Yes [id number] Information not available 04/13/2020 Smoke Alarm In Home Yes Information not available 09/16/2018 Are You Passively Exposed To Smoke? No Information not available 09/16/2018 How Much Tobacco Do You Smoke? No [id number] Information not available 04/13/2020 General Stress Level High Information not available 09/16/2018 Do You Use Sunscreen Routinely? No [id number] Information not available 04/13/2020 Do You Have Difficulty Walking Or Climbing Stairs? No [id number] Information not available 04/13/2020 Sex: Unknown Functional Status Question Answer Note LastModified by Organizat ion Details LastModified Time Do you or have you ever used any other forms of tobacco or nicotine? No [email or web address] Information not available 10/19/2021 What is your level of alcohol consumption? None [id number] Information not available 04/13/2020 Are you currently employed? Yes [id number] Information not available 04/13/2020 Are you able to walk independently without assistance or assistive devices? YESWOREST [id number] Information not available 04/13/2020 Do you have difficulty doing errands alone? No [id number] Information not available 04/13/2020 Are you able to care for yourself independently? 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 No [id number] Information not available 04/13/2020 What is your exercise level? Moderate [id number] Information not available 04/13/2020 Mental Status None [...] Obesity 40 [email or web address] Not available 09/16/2018 15:18:36 Notes:colorectal cancer x 2 brother Medical History Condition Response Coronary Artery Disease N Other N Gout N Blood Diseases N Kidney Stones Y Blood Transfusion N Breast Cancer N Depression N COPD N Lung Disease N Defects or Inherited [...] mL dose 05/26/20 21 completed Not Available [facility] 07/07/2022 03:59:48 COVID-19, mRNA, LNP-S, PF, 30 mcg/0.3 mL dose 09/05/19 21 completed Not Available [facility] 07/07/2022 03:59:48 COVID-19, mRNA, LNP-S, PF, 30 mcg/0.3 mL dose 09/26/19 21 completed Not Available [facility] 07/07/2022 03:59:48 influenza, unspecified formulation 04/12/20 22 completed Not Available [facility] 07/07/2022 03:59:48 COVID-19, mRNA, LNP-S, bivalent, PF, 50 mcg/0.5 mL or 25mcg/0.25 mL dose 04/19/20 22 completed Not Available [facility] 07/07/2022 03:59:48 zoster live 08/10/19 14 completed Not Available [facility] 07/07/2022 03:59:48 Tdap 02/20/20 24 completed Kiley copeland [facility] 02/22/2024 08:13:55 SARS-COV-2 (COVID-19) vaccine, UNSPECIFIED 02/20/20 24 completed Kiley copeland [facility] 02/22/2024 08:14:36 influenza, unspecified formulation 02/20/20 24 completed Kiley copeland [facility] 02/22/2024 08:14:55 Respiratory syncytial virus (RSV) MAB, unspecified 03/25/20 24 completed BIJAN AUGUSTIN [address] [place] [address], [address], [facility] 03/26/2024 06:07:34 Pneumococcal conjugate PCV20, polysaccharide [id number] conjugate, adjuvant, PF 03/25/20 24 completed BIJAN AUGUSTIN [address] [place] [address], [address], [facility] 03/26/2024 06:07:58 Influenza, split virus, quadrivalent, preservative 04/10/20 19 completed Not Available [facility] 07/07/2022 03:59:48 Influenza, split virus, quadrivalent, preservative 04/29/20 20 completed Not Available [facility] 07/07/2022 03:59:48 Tdap 09/26/19 13 completed Not Available [facility] 07/07/2022 03:59:48 Past Encounters Encounter ID Performer Location Encounter Start Date Encounter Closed Date Diagnosis/Indication Diagnosis SNOMED-CT Code Diagnosis ICD10 Code Diagnosis IMO Codes Diagnosis Note [id number] September YASMIN Bergeron [facility] [address] [facility],[place] [address] 09/17/2017 15:43:13 09/17/2017 16:51:30 Asthma 630188737 J45.909 Chronic cough 91031693 R 05 likely related to asthma/chr onic post nasal drip treatment as above Chronic sinusitis 300820 00 J32.9 Comedone 555536548 L70.0 i&d successful , patient tolerated well. proper care instructed [id number] Nickolas Munson DO [facility] [address] [facility],[place] [address] 01/14/2018 13:36:34 01/14/2018 14:20:32 Contact dermatitis caused by urushiol from [facility] [place]ley 505031194 L25.5 Asthma 694124278 J45.90 9 quiet Hypothyroidism 69752495 E03.9 Hypercholesterolemia 136 51400 E78.00 Benign pro static hyperplasia 399061904 N40.0 [id number] Nickolas Munson DO [facility] [address] [facility],[place] [address] 02/04/2018 15:40:30 02/04/2018 16:34:13 Microscopic hematuria 308815128 R31.21 in setting of h/o kidney stones has urologist has appointmen t 02/[address] barney [facility] [address] Asthma 528943017 J45.90 9 quiet Body mass index 30+ - obesity 821307635 Z68.31 discussed diet and exercise had been 190 for years discussed weight loss goals Adult [facility] th examination 759275972 Z00.00 Restless l egs syndrome 89296188 G25.81 Screening procedure 2012 5006 Z13.9 Male hypogonadism 177849 06 E29.1 [id number] Nickolas Munson DO [facility] [address] [facility],[place] [address] 03/25/2018 11:28:57 03/25/2018 15:03:10 Asthma 036195555 J45.909 quiet Benign pro static hyperplasia 488146504 N40.0 avoid sudafed Allergic rhinitis 136696 04 J30.9 does typically have fall allergies as well Pneumonia 458429365 J18. 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 will order lab and have it sent to dr barnes [id number] Nickolas Munson [facility] [address] [facility],[place] [address] 10/09/2018 15:59:48 10/09/2018 16:49:44 Hypothyroidism 46861409 E03.9 will start on low dose levothyrox as this is a subclinica l hypothyroi d presentati on and with stress of the treatments coming up belive we can assist him with a low dose and rechk in a month or two Hypotestosteronism 89076 01196 104 R79.89 will rechk lab as needed Benign pro static hyperplasia 848706571 N40.0 currentyl not taking any med Asthma 861517926 J45.90 9 quiet [id number] Nickolas Munson [facility] [address] [facility],[place] [address] 11/20/2018 15:56:24 11/20/2018 16:18:49 Hypothyroidism 72527862 E03.9 will start on low dose levothyrox as this is a subclinica l hypothyroi d presentati on and with stress of the treatments coming up belive we can assist him with a low dose and rechk in a month or two Hypotestosteronism 70511 27996 104 R79.89 will rechk lab as needed Benign pro static hyperplasia 042365612 N40.0 currentyl not taking any med [id number] [facility] [address] [facility],[place] [address] 04/15/2019 08:58:11 04/15/2019 09:43:59 Hypothyroidism 44156238 E03.9 Adult heal th examination 204518778 Z00.00 doing well no major findings Rib pain 020192497 R07.8 1 [id number] Nickolas Munson [facility] [address] [facility],[place] [address] 11/18/2019 08:55:55 11/18/2019 10:47:38 Hypothyroidism 45509336 E03.9 Asthma 768753950 J45.90 9 Chest pain 82197229 R07. 9 will check echo and exercise stress to completely r/o cardiac related etiology will check TSH to r/o thyroid or in to see if he needs dose adjustment will f/u after labs and scans to go over everything [id number] Nickolas Munson [facility] [address] [facility],[place] [address] 05/11/2020 09:23:30 05/12/2020 08:20:05 Fatigue 58661920 R53.83 most likely combo of stress and insomina with back pain and hemorrhoid pain Muscle pain 33734820 M79 .10 back pain and arm [id number] Nickolas Munson [facility] [address] [facility], [place] [address] 06/14/2020 14:26:15 06/14/2020 15:37:34 Active or passive immunization 503596183 Z23 Adult [facility] th examination 193010646 Z00.00 doing well no major findings Asthma 634418296 J45.90 9 quiet Hypothyroidism 60063852 E03.9 Eczema 56186335 L30.9 Primary er ectile dysfunction 151855084 N52.9 [id number] Nickolas Munson [facility] [address] [facility], [place] [address] 10/04/2020 08:53:54 10/04/2020 09:12:25 Eczema 58858247 L30.9 will refill script Seborrheic keratosis 394 168206 L82.1 benign SK on low back Hypothyroidism 12890965 E03.9 will recheck TSH Fatigue 21656902 R53.83 will check on labs to see if any underlying diff causing the fatigue the patient is experienci ng [id number] Nickolas Munson [facility] [address] [facility],[place] [address] 06/17/2021 09:03:57 06/17/2021 16:13:20 Post-traumatic stress disorder 18353453 F43.12 will fu in one month to check patient's progress [id number] Nickolas Munson [facility] [address] [facility],[place] [address] 10/19/2021 09:02:53 10/19/2021 09:51:25 Active or passive immunization 829163398 Z23 advised 10/19/21 Adult [facility] th examination 897128587 Z00.00 BP is stable; BP excellent Restless l egs syndrome 25381869 G25.81 will trial ropinirole for restless leg syndrome Fatigue 85313130 R53.83 will check on labs to see if any underlying diff causing the fatigue the patient is experienci ng Hypothyroidism 37821597 E03.8 will recheck TSH Post-traum atic stress disorder 01793076 F43.12 will fu in one month to check patient's progress [id number] Nickolas Munson [facility] [address] [facility],[place] [address] 01/02/2022 10:35:46 01/02/2022 15:30:32 Acute bronchitis 27847316 J20.8 will start on abx and cough suppressen tcontinue robitussin PRN [id number] Nickolas Munson [facility] [address] [facility],[place] [address] 05/03/2022 09:33:24 05/03/2022 11:55:28 Asthma [id number] J45.30 stablereso lved from previous flare up a few weeks ago due to a URI Depressive disorder 1931 9923 F32.0 stablehasn 't used to lexapro since his mood has been stable Active or passive immunization 132173551 Z23 due for the pneumonia vaccine [id number] [facility] [address] [facility] on [place] [facility] [address] 07/17/2022 09:34:50 07/17/2022 14:52:08 COVID-19 [id number] U07.1 will start on paxlovidin the five days; [place] Sat [id number] Nickolas Munson [facility] Internal Medicine [address] [facility] on [place] [facility] [place] [address] 10/23/2022 08:58:25 10/23/2022 09:50:22 Active or passive immunization 546982828 Z23 due for the pneumonia vaccine Adult heal th examination 738861995 Z00.00 BP is stable; BP excellent Depressive disorder 3548 9007 F32.0 stablehasn 't used to lexapro since his mood has been stable Seasonal a llergic rhinitis 585965102 J30.2 will set up with an concrete pourer [id number] [facility] [address] [facility],[place] [address] 10/29/2023 08:59:17 10/29/2023 10:00:14 Active or passive immunization 059730888 Z23 advised Adult heal th examination 406031615 Z00.00 BP is stable; BP excellent Depression screening 171 218032 Z13.31 negative Dyspnea 133558759 R06.[address] and PFT Depressive disorder 3548 9007 F32.0 stablehasn 't used to lexapro since his mood has been stable Edema of l ower extremity 687885167 R60.0 agreed to US echo and exercise stress testd Tick bite 45583917 W57.X XXA agreed will set up with Restless l egs syndrome 08321056 G25.81 will trial ropinirole for restless leg syndromeca n increase his mag to 600 mg BUD Insomnia 103166920 G47.0 0 discussed options Asthma 730429021 J45.30 stablereso lved from previous flare up a few weeks ago due to a URI [id number] Nickolas Munson [facility] Internal Medicine [address] [facility] on [place] [address] 11/18/2024 08:57:16 11/18/2024 09:43:53 Active or passive immunization 322667515 Z23 advised General ex amination of patient 327457254 Z00.00 78065899 BP is stable; BP excellent Hypothyroidism 58818455 E03.8 will recheck TSH Health Concerns Section Related Observation LastModified by Organization Detai ls LastModified Time None Recorded Concern Status LastModified by Organization Details LastModified Time None Recorded Advance Directives Directive Y: Payers Insurance Date Sequence Insurance Name Policy Number Policy Freeman Covered Member ID Freeman Member ID Guarantor Name 11/15/2024 1 [employer] GRATIOT [id number] 1 Lionel Jarvis [id number] Lionel Jarvis Notes Date Note Type Note Provider Name and Address Organization Details Recorded Time 2 text/html ROS as noted in the HPI f/u asthma asthma: improved after recent URIneeds albuterol inhaler refill depressive: stablesees doctor listed in [place] section at [place] for [facility] for PTSD recent colonoscopy was normaldue in another 5 years due for a pneumonia vaccine kidney stones: patient is still seeing urologydiscussed his use of HTCZ, wants to talk about d/c itwill discuss with urology BIJAN AUGUSTIN [address] [place], [address], [facility] Internal Medicine 05/03/2022 10:02:44 3 text/html ROS as noted in the HPI c/o COVID positive tele-med phone callpt consents to phone call patient has covidis 66 y/o and has asthmaagreed to start paxlovid > within the time rangewill d/c the meds he's on from integrative medicinecan restart after the paxlovid BIJAN AUGUSTIN [address] [place], [address], [facility] Internal Medicine 07/17/2022 13:57:26 3 text/html Annual WellnessReported by PatientSocial/Behaviora l HistoryFor diet and nutrition, patient reportshealthy diet,discussed vitamin and supplement use,discussed portion control,discussed maintaining calcium balance, anddiscussed diet improvement. For fracture risk, patient reportsno history of fractures,no recent explained fracture,no sudden unexplained fractures, andno previous musculoskeletal injuries. For physical activity, patient reportsexercises on a regular basis,recent increase in physical activity,good physical condition,discussed weightbearing activities, anddiscussed exercise habits. For additional lifestyle factors, patient reportsno tobacco use,drinks alcohol (mild-moderate),discuss ed safe sex and sti risk, andpreconception/concep tion counseling given.Mental Status:For depression risk, patient reportsnever feels sad, empty, or tearful,no loss of interest in activities,no significant changes in weight,no sleep disturbances or insomnia,no agitation,no loss of energy,no feelings of worthlessness or guilt,no thoughts of suicide,no history of depression, andno history of mood disorders.Functional AbilityFor hearing, patient reportsno loss of hearing. For vision, patient reportsno vision problems. 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; the patient does report fatigue and sobno other symptoms concerning for cardiopulmonary conditions that aren't already documented BP is excellent discussed Thyroid; monitored by integrative medicinethe pt is going to go on a trial of naltrexone with them and peptide treatment the pt still has restless legsdrinking enough fluidcurrently on magnesium BIJAN AUGUSTIN [address] [place] [address], [place], [address], [facility] Internal Medicine 10/23/2022 09:38:56 4 text/html Annual WellnessReported by PatientSocial/Behaviora l HistoryFor diet and nutrition, patient reportshealthy diet,discussed vitamin and supplement use,discussed portion control,discussed maintaining calcium balance, anddiscussed diet improvement. For fracture risk, patient reportsno history of fractures,no recent explained fracture,no sudden unexplained fractures, andno previous musculoskeletal injuries. For physical activity, patient reportsexercises on a regular basis,recent increase in physical activity, andgood physical condition. For additional lifestyle factors, patient reportsno tobacco use,no alcohol intake, andstopped drinking alcohol(no caffiene consumption).Mental Status:For depression risk, patient reportsnever feels sad, empty, or tearful,no loss of interest in activities,no significant changes in weight,no sleep disturbances or insomnia,no agitation,no loss of energy,no feelings of worthlessness or guilt,no thoughts of suicide,no history of depression, andno history of mood disorders.Functional AbilityFor hearing, patient reportsno loss of hearing. For vision, patient reportsno vision problems. 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 For fracture risk, patient reportsno history of fractures,no recent explained fracture,no sudden unexplained fractures, andno previous musculoskeletal injuries. For physical activity, patient reportsexercises on a regular basis,recent increase in physical activity,good physical condition,discussed weightbearing activities, anddiscussed exercise habits. For additional lifestyle factors, patient reportsno tobacco useanddrinks alcohol (mild-moderate).Mental Status:For depression risk, patient reportshistory of mood disordersandhistory of depressionbut reportsnever feels sad, empty, or tearful,no loss of interest in activities,no significant changes in weight,no sleep disturbances or insomnia,no agitation,no loss of energy,no feelings of worthlessness or guilt, andno thoughts of suicide(due to health).Functional AbilityFor hearing, patient reportsno loss of hearing. 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
--- OUTSIDE RECORDS SUMMARY | 2025-03-31 07:43 | XMS_ITS | Encounter Summary ---
Author Organization [facility] Address [address] [facility] [address] [place] [address] Phone Care Team Providers Care Signaling Project Engineer Name Role Phone Nickolas Riddle DO Unavailable Theo Proctor MD Unavailable + [phone] Adam Gauthier MD Unavailable [phone] Nickolas Riddle DO Primary Care Provider [phone] Nickolas Riddle DO Primary Care Provider [phone] Encounter Details Date Type Department Care Team (Late st Contact Info) Description 04/13/2017 Ancillary Orders [facility], X-Ray - [facility] [address] [place] [address] Nickolas Riddle DO [address] [facility] [place] [address] [email or web address] Coccyx sprain, initial encounter [...] encounter documented in this encounter Care Teams Signaling Project Engineer Relationship Specialty Start Date End Date Bigda, Nickolas MonteroDO PCP - General Internal Medicine 04/13/17 07/08/24 Nickolas Riddle KylahDO [address] [place] [address] PCP - General Internal Medicine 07/09/24 Nickolas Riddle DO Historical LMR Provider 03/27/17 Theo Proctor MD [address] [place] [address] [email or web address] Historical LMR Provider 03/27/17 06/18/21 Adam Gauthier MD [address] [place] [address] Historical LMR Provider 03/27/17 documented as of this encounter Additional Source Comments The information contained in this document represents components of the legal health record. It is not the complete legal health record.[facility]
--- OUTSIDE RECORDS SUMMARY | 2025-03-31 07:43 | XMS_ITS | Encounter Summary ---
Author Organization [facility] Address [address] [facility] [address] [place] [address] Phone Care Team Providers Care Enrollment Processor Name Role Phone Nickolas Riddle DO Unavailable Bigda, Nickolas A DO Primary Care Provider [phone] Bigda, Nickolas A DO Primary Care Provider [phone] Encounter Details Date Type Department Care Team (Late st Contact Info) Description 12/04/2023 Transcribe Orders [facility] Pulmonary, Allergy and Critical Care Medicine [address] [facility] [place] [address] [place] [address] Emili Aldrich PA [address] [facility] [place] [address] Social History Tobacco Use Types Packs/Day Years [...] on filedocumented in this encounter Care Teams Enrollment Processor Relationship Specialty Start Date End Date Nickolas Riddle DO PCP - General Internal Medicine 04/13/17 07/08/24 Nickolas Riddle DO [address] [place] [address] PCP - General Internal Medicine 07/09/24 Nickolas Riddle DO Historical LMR Provider 03/27/17 documented as of this encounter Additional Source Comments The information contained in this document represents components of the legal health record. It is not the complete legal health record.[facility]
--- OUTSIDE RECORDS SUMMARY | 2025-03-31 07:43 | XMS_ITS | Encounter Summary ---
Author Organization [facility] Address [address] [facility] [address] [place] [address] Phone Care Team Providers Care Telesales Specialist Name Role Phone Nickolas Riddle DO Unavailable Nickolas Riddle DO Primary Care Provider [phone] Encounter Details Date Type Department Care Team (Latest Contact Info) Description 11/18/2024 Transcribe Orders [facility] [address] [place] [address] Emili Aldrich PA [address] [facility] [address] [place], [place] [id number] Screening for prostate cancer (Primary Dx); Central [...] FREE T4 1.4 0.9 - 1.7 ng/dL [facility] Blood 11/18/2024 10:1 8 AM EDT 11/18/2024 10:23 AM EDT us Emili THAKKAR LAB BLOOD ORDERABLES Final Result Performing Organization Address City/[facility]/ZIP Co de Phone Number [address] [address] * (ABNORMAL) TSH (11/18/2024 10:18 AM EDT) TSH 4.58(H) 0.27 - 4.20 uIU/mL [facility] Blood 11/18/2024 10:1 8 AM EDT 11/18/2024 10:23 AM EDT us Emili THAKKAR LAB BLOOD ORDERABLES Final Result Performing Organization Address [facility]/ZIP Co de Phone Number [address] [address] * (ABNORMAL) 25-OH vitamin D (11/18/2024 10:18 AM EDT) 25 OH VIT D (TOTAL) 21(L) 30 - 60 ng/mL [facility] Blood 11/18/2024 10:1 8 AM EDT 11/18/2024 10:23 AM EDT Emili THAKKAR LAB BLOOD ORDERABLES Final Result Performing Organization Address City/[facility]/ZIP Co de Phone Number [address] [address] * Hemoglobin A1c (11/18/2024 10:18 AM EDT) HEMOGLOBIN A1C 5.1 4.3 - 5.8 % [facility] Blood 11/18/2024 10:1 8 AM EDT 11/18/2024 10:23 AM EDT Emili THAKKAR LAB BLOOD ORDERABLES Final Result Performing Organization Address City/[facility]/ZIP Co de Phone Number [address] [address] * PSA (screening) (11/18/2024 10:18 AM EDT) Pathologist [facility] PSA 2.59 0 - 4.00 ng/mL [facility] Comment: Test Methodology Elisha e801 Patient results determined by assays using different manufacturers or methods may not be comparable. Blood 11/18/2024 10:1 8 AM EDT 11/18/2024 10:24 AM EDT Emili THAKKAR LAB BLOOD ORDERABLES Final Result Performing Organization Address City/[facility]/ZIP Co de Phone Number [address] [address] * (ABNORMAL) Lipid panel (11/18/2024 10:18 AM EDT) Pathologist [facility] HDL 32 mg/dL [facility] Comment: Interpretation <40 mg/dL: Low HDL cholesterol (major risk factor for CHD) Greater than or equal to 60 mg/dL: High HDL cholesterol ( negative risk factor for CHD) HDL - cholesterol is affected by a number of factors, e.g. smoking, excerise, hormones, sex and age. CHOLESTEROL 188 0 - 240 mg/dL [facility] TRIGLYCERIDES 223(H) 30 - 160 mg/dL [facility] LDL 111 50 - 129 mg/dL [facility] Comment: LDL levels in terms of risk for coronary heart disease: <100 mg/dL: Optimal 100-129 mg/dL: Near or above optimal 130-159 mg/dL: Borderline high 160-189 mg/dL: High >190 mg/dL: Very High CARDIAC RISK RATIO 5.9(H) 3.4 - 5.0 C [facility] Blood 11/18/2024 10:1 8 AM EDT 11/18/2024 10:24 AM EDT us Emili THAKKAR LAB BLOOD ORDERABLES Final Result [address] [address] * (ABNORMAL) CBC and differential (11/18/2024 10:18 AM EDT) WBC 8.10 4.00 - 11.00 K/uL [facility] RBC 4.78 4.50 - 5.90 M/uL [facility] HGB 14.8 13.5 - 17.5 g/dL [facility] HCT 44.6 41.0 - 53.0 % [facility] PLT 123(L) 150 - 450 K/uL [facility] MCV 93.3 80.0 - 100.0 fL [facility] MCH 31.0 27.0 - 31.0 pg [facility] MCHC 33.2 32.0 - 36.0 g/dL [facility] RDW 13.3 11.5 - 14.5 % [facility] MPV 12.6(H) 8.4 - 12.0 fL [facility] NRBC 0.20(H) 0.00 /100 WBCs [facility] ABSOLUTE NRBC 0.02(H) 0.00 K/uL [facility] DIFF METHOD Auto [facility] NEUTS 29.2(L) 48.0 - 76.0 % [facility] LYMPHS 62.1(H) 18.0 - 41.0 % [facility] Comment: Moderate Atypical Lymphs MONOS 4.2 4.0 - 11.0 % [facility] EOS 3.8 0.0 - 5.0 % [facility] BASOS 0.7 0.0 - 1.5 % [facility] Granulocytes, immature (%) 0.0 0.0 - 0.9 % [facility] ABSOLUTE NEUTS 2.36 1.92 - 7.60 K/uL [facility] ABSOLUTE LYMPHS 5.03(H) 0.72 - 4.10 K/uL [facility] ABSOLUTE MONOS 0.34 0.16 - 1.10 K/uL [facility] ABSOLUTE EOS 0.31 0.00 - 0.50 K/uL [facility] ABSOLUTE BASOS 0.06 0.00 - 0.15 K/uL [facility] Granulocytes, immature 0.00 0.00 - 0.09 K/uL [facility] Blood 11/18/2024 10:1 8 AM EDT 11/18/2024 10:23 AM EDT us Emili THAKKAR LAB BLOOD ORDERABLES Final Result [address] [address] * Comprehensive metabolic panel (11/18/2024 10:18 AM EDT) SODIUM 140 133 - 146 mmol/L [facility] POTASSIUM 4.6 3.3 - 5.1 mmol/L [facility] CHLORIDE 103 96 - 108 mmol/L [facility] CO2 30 21 - 35 mmol/L [facility] BUN 13 6 - 19 mg/dL [facility] CREATININE 1.00 0.5 - 1.5 mg/dL [facility] GLUCOSE 98 70 - 99 mg/dL [facility] ALBUMIN 4.1 3.9 - 4.8 g/dL [facility] TOTAL PROTEIN 6.6 6.5 - 8.0 g/dL [facility] CALCIUM 9.5 8.4 - 10.3 mg/dL [facility] ALKALINE PHOSPHATASE 96 39 - 117 U/L [facility] TOTAL BILIRUBIN 0.8 0.0 - 1.2 mg/dL [facility] AST 22 0 - 37 U/L [facility] ALT 23 0 - 40 U/L [facility] GLOBULIN 2.5 1 - 4.8 g/dL [facility] EGFR 82 >59 mL/min/1.7 3m2 [facility] Comment:Estimated glomerular filtration rate calculated using the CKD-EPI refit equation. ANION GAP 12 10 - 20 mmol/L [facility] Blood 11/18/2024 10:1 8 AM EDT 11/18/2024 10:23 AM EDT Emili THAKKAR LAB BLOOD ORDERABLES Final Result [facility] [address] [place] [address] documented in this encounter Visit Diagnoses Diagnosis Screening for prostate cancer- Primary Special screening for malignant neoplasm of prostate Central hypothyroidism Unspecified hypothyroidism Routine general medical examination at a health care facility documented in this encounter Care Teams Telesales Specialist Relationship Specialty Start Date End Date Nickolas Riddle DO [address] [place] [address] PCP - General Internal Medicine 07/09/24 Nickolas Riddle DO Historical LMR Provider 03/27/17 documented as of this encounter Additional Source Comments The information contained in this document represents components of the legal health record. It is not the complete legal health record.[facility]
--- OUTSIDE RECORDS SUMMARY | 2025-03-31 07:43 | XMS_ITS | Encounter Summary ---
Author Organization [facility] Address [address] [facility] [address] [place] [address] Phone Care Team Providers Care Box Sorter Name Role Phone BarryNickolas lake Unavailable Theo Proctor MD Unavailable + [phone] Adam Gauthier MD Unavailable [phone] Nickolas Riddle DO Primary Care Provider [phone] Nickolas Riddle DO Primary Care Provider [phone] Encounter Details Date Type Department Care Team (Latest Contact Info) Description 11/25/2019 Transcribe Orders [facility] [address] [place] [phone] Emili Aldrich PA [address] [place] [address] [address] [place], [place] [id number] Nonspecific abnormal results of liver function study [...] ALKALINE PHOSPHATASE 110 39 - 117 U/L [facility] TOTAL BILIRUBIN 0.5 0.0 - 1.2 mg/dL [facility] DIRECT BILIRUBIN <0.2 0 - 0.3 mg/dL [facility] Bilirubin (Indirect) NOT CALCULATED 0 - 1.5 mg/dL [facility] AST 28 0 - 37 U/L [facility] ALT 32 0 - 40 U/L [facility] TOTAL PROTEIN 7.2 6.5 - 8.0 g/dL [facility] ALBUMIN 4.3 3.9 - 4.8 g/dL [facility] GLOBULIN 2.9 1 - 4.8 g/dL [facility] A/G Ratio 1.48 1.00 - 4.80 RATIO [facility] Blood 11/25/2019 9:24 AM EDT 11/25/2019 10:21 AM EDT Emili THAKKAR LAB BLOOD ORDERABLES Final Result Performing Organization Address City/State/[facility] Co de Phone Number [address] [address] documented in this encounter Visit Diagnoses Diagnosis Nonspecific abnormal results of liver function study- Primary documented in this encounter Care Teams Box Sorter Relationship Specialty Start Date End Date Nickolas Riddle DO PCP - General Internal Medicine 04/13/17 07/08/24 Nickolas Riddle DO [address] [place] [address] PCP - General Internal Medicine 07/09/24 Nickolas Riddle DO Historical LMR Provider 03/27/17 Theo Proctor MD [address] [place] [address] [email or web address] Historical LMR Provider 03/27/17 06/18/21 Adam Gauthier MD [address] [place] [address] Historical LMR Provider 03/27/17 documented as of this encounter Additional Source Comments The information contained in this document represents components of the legal health record. It is not the complete legal health record.[facility]
--- OUTSIDE RECORDS SUMMARY | 2025-03-31 07:43 | XMS_ITS | Encounter Summary ---
Author Organization [facility] Address [address] [place] [address] Phone Care Team Providers Care Sheet Rock Taper Name Role Phone Nickolas Riddle Unavailable Theo Proctor MD Unavailable + [phone] Adam Gauthier MD Unavailable [phone] Nickolas Riddle DO Primary Care Provider [phone] Nickolas Riddle DO Primary Care Provider [phone] Encounter Details Date Type Department Care Team (Late st Contact Info) Description 03/25/2018 Ancillary Orders Virtual Department [address] [place] [address] Elyssa ColletteCAMILO Denis. [address] [place] [address] [email or web address] Pneumonia due to infectious organism, unspecified laterality, [...] chest disease. POS - [id number] September Elyssa PAGE IMG XR CHEST Final Result documented in this encounter Visit Diagnoses Diagnosis Pneumonia due to infectious organism, unspecified laterality, unspecified part of lung Pneumonia due to infectious organism, unspecified laterality, unspecified part of lung documented in this encounter Care Teams Sheet Rock Taper Relationship Specialty Start Date End Date Nickolas Riddle DO [email or web address] PCP - General Internal Medicine 04/13/17 07/08/24 Nickolas Riddle DO [address] [place] [address] [email or web address] PCP - General Internal Medicine 07/09/24 Nickolas Riddle DO [email or web address] Historical LMR Provider 03/27/17 [place] [address] [place] [address] [email or web address] Historical LMR Provider 03/27/17 06/18/21 Adam Gauthier MD [address] [place] [address] Historical LMR Provider 03/27/17 documented as of this encounter Additional Source Comments The information contained in this document represents components of the legal health record. It is not the complete legal health record.[facility]
--- OUTSIDE RECORDS SUMMARY | 2025-03-31 07:43 | XMS_ITS | Encounter Summary ---
Author Organization [facility] Address [address] [place] [address] [place] [address] Phone Care Team Providers Care Chargeback Specialist Name Role Phone Nickolas Riddle DO Unavailable Bigda, Nickolas A DO Primary Care Provider [phone] Bigda, Nickolas A DO Primary Care Provider [phone] Encounter Details Date Type Department Care Team (Late st Contact Info) Description 06/27/2024 Procedure Pass [facility], Ct Scan - [address] [address] Social History Tobacco Use Types Packs/Day Years [...] on filedocumented in this encounter Care Teams Chargeback Specialist Relationship Specialty Start Date End Date Nickolas Riddle DO [email or web address] PCP - General Internal Medicine 04/13/17 07/08/24 Nickolas Riddle DO [address] [place] [address] [email or web address] PCP - General Internal Medicine 07/09/24 Nickolas Riddle DO [email or web address] Historical LMR Provider 03/27/17 documented as of this encounter Additional Source Comments The information contained in this document represents components of the legal health record. It is not the complete legal health record.[facility]
--- OUTSIDE RECORDS SUMMARY | 2025-03-31 07:43 | XMS_ITS | Encounter Summary ---
Author Organization [facility] Address [address] [facility] [address] [place] [address] Phone Care Team Providers Care Motel Front Desk Clerk Name Role Phone Nickolas Riddle DO Unavailable Theo Proctor MD Unavailable + [phone] Adam Gauthier MD Unavailable [phone] Nickolas Riddle DO Primary Care Provider [phone] Nickolas Riddle DO Primary Care Provider [phone] Encounter Details Date Type Department Care Team (Late st Contact Info) Description 04/13/2017 Ancillary Orders [facility], X-Ray - [facility] [address] [place] [address] Nickolas Riddle DO [address] [place] [address] [email or web address] Coccyx sprain, initial encounter Social History Tobacco [...] encounter documented in this encounter Care Teams Motel Front Desk Clerk Relationship Specialty Start Date End Date Nickolas Riddle DO PCP - General Internal Medicine 04/13/17 07/08/24 Nickolas Riddle DO [address] [place] [address] PCP - General Internal Medicine 07/09/24 Nickolas Riddle DO Historical LMR Provider 03/27/17 Theo Proctor MD [address] [place] [address] [email or web address] Historical LMR Provider 03/27/17 06/18/21 Adam Gauthier MD [address] [place] [address] Historical LMR Provider 03/27/17 documented as of this encounter Additional Source Comments The information contained in this document represents components of the legal health record. It is not the complete legal health record.[facility]
--- OUTSIDE RECORDS SUMMARY | 2025-03-31 07:43 | XMS_ITS | Encounter Summary ---
Author Organization [facility] Address [address] [place] [address] Phone Care Team Providers Care Calcine Furnace Tender Name Role Phone Nickolas Riddle DO Unavailable Theo Proctor MD Unavailable + [phone] Adam Gauthier MD Unavailable [phone] Nickolas Riddle DO Primary Care Provider [phone] Nickolas Riddle DO Primary Care Provider [phone] Encounter Details Date Type Department Care Team (Late st Contact Info) Description 08/13/2018 Procedure Pass [facility] Endoscopy Admitting Dept Virtual Department [address] [place] [address] Social History Tobacco Use Types Packs/Day Years [...] on filedocumented in this encounter Care Teams Calcine Furnace Tender Relationship Specialty Start Date End Date Nickolas Riddle DO PCP - General Internal Medicine 04/13/17 07/08/24 Nickolas Riddle DO [address] [place] [address] PCP - General Internal Medicine 07/09/24 Nickolas Riddle DO Historical LMR Provider 03/27/17 Theo Proctor MD [address] [place] [address] [email or web address] Historical LMR Provider 03/27/17 06/18/21 Adam Gauthier MD [address] [place] [address] Historical LMR Provider 03/27/17 documented as of this encounter Additional Source Comments The information contained in this document represents components of the legal health record. It is not the complete legal health record.[facility]
--- OUTSIDE RECORDS SUMMARY | 2025-03-31 07:43 | XMS_ITS | Clinical Summary ---
Author Organization [facility] Address [address] [place] [address] Phone Care Team Providers Care Circulation Crew Leader Name Role Phone Luis Munson DO Unavailable Luis Munson DO Primary Care Provider [phone] Allergies Active Allergy Reactions Criticality Noted Date Comments Gluten Protein GI Upset Low 08/06/2018 Milk Containing Products (Dairy) Other (See Comments) High 08/06/2018 Throat Swelling Penicillins Other (See Comments) High 08/06/2018 Ravi luis Syndrome Tvqyk-Vpdkpgu-Yjfheg Other (See Comments) High 08/06 Throat swelling [...] symptoms do not sound anginal in origin Immunizations Immunization Administration Dates Next Due COVID-19 (Pre-04/02) Moderna Vaccine, mRNA, PF 0 10/31/2021 COVID-19 (Pre) Pfizer Vaccine, mRNA, PF ,09/04/2020 COVID-19 (Pre-04/02) Pfizer Vaccine, mRNA, tonja-sucrose, PF 05/26/2021 Social [...] TEST 12/17/2000 FOBT 12/17/2000 VIRTUAL COLONOSCOPY 12/17/2000 RSV VACCINE (1 - Risk 50-74 years 1-dose series) 12/17/2005 ZOSTER VACCINES (2 of 3) 11/06/2013 09/11/2013, 06/2013 Adult Td,Tdap Booster 09/25/2022 09/25/2012 SIGMOIDOSCOPY 10/11/2023 10/10/2018 INFLUENZA VACCINE (#1) 2025 , 04/12/2022, 04/10/2022, Additional history exists COVID-19 VACCINE ( season) 2025 04/19/2022, 04/01/2022, 10/31/2021, Additional history exists POTASSIUM LEVEL 11/18/2025 11/18/2024, 042 08/2023, 10/23/2022, Additional history exists TSH LEVEL 11/18/2025 [...] Procedure Name Priority Date/Time Associated Diagnosis Comments LIPID PANEL Routine 11/18/2024 10:18 AM EDT Central hypothyroidism Routine general medical examination at a health care facility TSH Routine 11/18/2024 10:18 AM EDT Central hypothyroidism Routine general medical examination at a health care facility COMPREHENSIVE METABOLIC PANEL Routine 11/18/2024 10:18 AM EDT Central hypothyroidism Routine general medical examination at a health care facility ENDOSCOPY, COLON 04/20/2022 1:33 PM EST HEPATITIS C ANTIBODY, QUALITATIVE Routine 04/23/2019 8:58 AM EST Routine general medical examination at a health care facility ENDOSCOPY, SIGMOID 10/10/2018 10 :29 AM EDT from Last 3 Months or Most Recently Relevant to Health Maintenance Results * Comprehensive metabolic panel (11/18/2024 10:18 AM EDT) SODIUM 140 133 - 146 mmol/L [facility] POTASSIUM 4.6 3.3 - 5.1 mmol/L [facility] CHLORIDE 103 96 - 108 mmol/L [facility] CO2 30 21 - 35 mmol/L [facility] BUN 13 6 - 19 mg/dL [facility] CREATININE 1.00 0.5 - 1.5 mg/dL [facility] GLUCOSE 98 70 - 99 mg/dL [facility] ALBUMIN 4.1 3.9 - 4.8 g/dL [facility] TOTAL PROTEIN 6.6 6.5 - 8.0 g/dL [facility] CALCIUM 9.5 8.4 - 10.3 mg/dL [facility] ALKALINE PHOSPHATASE 96 39 - 117 U/L [facility] TOTAL BILIRUBIN 0.8 0.0 - 1.2 mg/dL [facility] AST 22 0 - 37 U/L [facility] ALT 23 0 - 40 U/L [facility] GLOBULIN 2.5 1 - 4.8 g/dL [facility] EGFR 82 >59 mL/min/1.7 3m2 [facility] Comment:Estimated glomerular filtration rate calculated using the CKD-EPI refit equation. ANION GAP 12 10 - 20 mmol/L [facility] Blood 11/18/2024 10:1 8 AM EDT 11/18/2024 10:23 AM EDT us Emili THAKKAR LAB BLOOD ORDERABLES Final Result [facility] [address] [place] [address] * (ABNORMAL) TSH (11/18/2024 10:18 AM EDT) TSH 4.58(H) 0.27 - 4.20 uIU/mL [facility] Blood 11/18/2024 10:1 8 AM EDT 11/18/2024 10:23 AM EDT Emili THAKKAR LAB BLOOD ORDERABLES Final Result Performing Organization Address [facility] Co de Phone Number [address] [address] * (ABNORMAL) Lipid panel (11/18/2024 10:18 AM EDT) HDL 32 mg/dL [facility] Comment: Interpretation <40 mg/dL: Low HDL cholesterol (major risk factor for CHD) Greater than or equal to 60 mg/dL: High HDL cholesterol ( negative risk factor for CHD) HDL - cholesterol is affected by a number of factors, e.g. smoking, excerise, hormones, sex and age. CHOLESTEROL 188 0 - 240 mg/dL [facility] TRIGLYCERIDES 223(H) 30 - 160 mg/dL [facility] LDL 111 50 - 129 mg/dL [facility] Comment: LDL levels in terms of risk for coronary heart disease: <100 mg/dL: Optimal 100-129 mg/dL: Near or above optimal 130-159 mg/dL: Borderline high 160-189 mg/dL: High >190 mg/dL: Very High CARDIAC RISK RATIO 5.9(H) 3.4 - 5.0 C [facility] Blood 11/18/2024 10:1 8 AM EDT 11/18/2024 10:24 AM EDT Emili THAKKAR LAB BLOOD ORDERABLES Final Result Performing Organization Address [facility] Co de Phone Number [address] [address] * ENDOSCOPY, COLON (04/20/2022 1:33 PM EST) Narrative Transcriptions Arina Antunez MD - 04/20/2022 1:33 PM EST Patient Name: Lionel Jarvis Attending MD:: ARINA ANTUNEZ MD Procedure Date: 04/20/2022 1:33 PM Date of : 1955 Age: 66 Admit Type: Outpatient Gender: Male Room: [facility] 05 Referring MD: LUIS MUNOSN DO Exam Type: Colonoscopy Indications: Screening in [...] monitored continuously. The Olympus adult variable colonoscope [id number] #2 was introduced through the anus and [...] 1:33 PM Procedure Code(s): --- Professional --- 16685, Colonoscopy, flexible; diagnostic, including collection of specimen(s) by brushing or washing, when performed (separateprocedure) --- Technical --- 29942, Colonoscopy, flexible; diagnostic, including collection of specimen(s) by brushing or washing, when performed (separateprocedure) Diagnosis Code(s): --- Professional --- Z80.0, Family history of malignant neoplasm of digestive organs --- Technical --- Z80.0, Family history of malignant neoplasm of digestive organs CPT copyright 2020 [employer]. All rights reserved. The codes documented in this report are preliminary and upon computer language coder reviewmay be revised to meet current compliance requirements. Procedure Date: 04/20/2022 1:33:[address] [place] [address] us Luis A Janessa DO GI PROCEDURE ORDERABLES Final Re sult * Hepatitis C antibody, qualitative (04/23/2019 8:58 AM EST) HCV NON-REACTIV E NON-REACTI VE [facility] Blood 04/23/2019 8:58 AM EST 04/23/2019 10:20 AM EST us Luis A Bigda DO LAB BLOOD ORDERABLES Final Resul t [address] [address] * ENDOSCOPY, SIGMOID (10/10/2018 10:29 AM EDT) Narrative Transcriptions Arina Antunez MD - 10/10/2018 10:29 AM EDT Patient Name: Lionel Jarvis Attending MD:: ARINA ANTUNEZ MD Procedure Date: 10/10/2018 10:29 AM Date of : 1955 Age: 62 Admit Type: Outpatient Gender: Male Room: [place] [address] Referring MD: LUIS MUNSON DO Exam Type: [...] monitored continuously. The Olympus adult variable colonoscope [id number] #2 was introduced through theanus and advanced [...] 10:29 AM Procedure Code(s): --- Professional --- 59812, Sigmoidoscopy, flexible; with removal of tumor(s), polyp(s),or other lesion(s) by hot biopsy forceps --- Technical --- 09905, Sigmoidoscopy, flexible; with removal of tumor(s), polyp(s),or other lesion(s) by hot biopsy forceps Diagnosis Code(s): --- Professional --- K62.1, Rectal polyp Z80.0, Family history of malignant neoplasm of digestive organs Z86.010, Personal history of colonic polyps --- Technical --- K62.1, Rectal polyp Z80.0, Family history of malignant neoplasm of digestive organs Z86.010, Personal history of colonic polyps CPT copyright 2016 [employer]. All rights reserved. The codes documented in this report are preliminary and upon computer language coder reviewmay be revised to meet current compliance requirements. [address] [place] [address] us Luis A Janessa DO GI PROCEDURE ORDERABLES Final Re sult from Last 3 Months or Most Recently Relevant to Health Maintenance Insurance [facility] [place] [address] [place] [address] [facility] Care Teams Circulation Crew Leader Relationship Specialty Start Date End Date Luis Munson DO [address] [place] [address] [email or web address] PCP - General Internal Medicine 07/09/24 Luis Munson DO [email or web address] Historical LMR Provider 03/27/17 Additional Source Comments The information contained in this document represents components of the legal health record. It is not the complete legal health record.[facility]
--- OUTSIDE RECORDS SUMMARY | 2025-03-31 07:43 | XMS_ITS | Encounter Summary ---
Author Organization [facility] Address [address] [place] [address] Phone Care Team Providers Care Lotteries Agent Name Role Phone Nickolas Riddle Unavailable Theo Proctor MD Unavailable [phone] Adam Gauthier MD Unavailable [phone] Nickolas Riddle Kylah DO Primary Care Provider [phone] Nickolas Riddle DO Primary Care Provider [phone] Encounter Details Date Type Department Care Team (Latest Contact Info) Description 01/16/2018 Transcribe Orders [facility] [address] [place] [address] Collette Bergeron PA-C [address] Denis[address] [place] [address] [email or web address] Myxedema heart disease (Primary Dx); Pure hypercholesterolemia [...] EDT) PSA 0.96 0 - 4.00 ng/mL [facility] Blood 01/16/2018 8:19 AM EDT 01/16/2018 8:26 AM EDT us September Elyssa PAGE LAB BLOOD ORDERABLES Final R esult [address] [address] * Comprehensive metabolic panel (01/16/2018 8:19 AM EDT) SODIUM 144 133 - 146 mmol/L [facility] POTASSIUM 4.2 3.3 - 5.1 mmol/L [facility] CHLORIDE 104 96 - 108 mmol/L [facility] CO2 28 21 - 35 mmol/L [facility] BUN 18 6 - 19 mg/dL [facility] CREATININE 0.90 0.5 - 1.5 mg/dL [facility] GLUCOSE 87 70 - 99 mg/dL [facility] ALBUMIN 4.0 3.9 - 4.8 g/dL [facility] TOTAL PROTEIN 6.6 6.5 - 8.0 g/dL [facility] CALCIUM 8.9 8.4 - 10.3 mg/dL [facility] ALKALINE PHOSPHATASE 86 39 - 117 U/L [facility] TOTAL BILIRUBIN 0.9 0.0 - 1.2 mg/dL [facility] AST 25 0 - 37 U/L [facility] ALT 22 0 - 40 U/L [facility] GLOBULIN 2.6 1 - 4.8 g/dL [facility] EGFR 91 >59 mL/min/1.7 3m2 [facility] Comment:If patient is black, multiply result by 1.159. Estimated glomerular filtration rate calculated using the CKD-EPI equation. ANION GAP 16 10 - 20 mmol/L [facility] Blood 01/16/2018 8:19 AM EDT 01/16/2018 8:25 AM EDT us September Elyssa PAGE LAB BLOOD ORDERABLES Final R esult [address] [address] * (ABNORMAL) Lipid panel (01/16/2018 8:19 AM EDT) HDL 38 mg/dL [facility] Comment: Interpretation: Risk Level Males Decreased >45 mg/dL Average 40-45 mg/dL Increased <40 mg/dL CHOLESTEROL 183 0 - 240 mg/dL [facility] TRIGLYCERIDES 180(H) 30 - 160 mg/dL [facility] LDL 109 50 - 129 mg/dL [facility] Comment: LDL levels in terms of risk for coronary heart disease: <100 mg/dL: Optimal 100-129 mg/dL: Near or above optimal 130-159 mg/dL: Borderline high 160-189 mg/dL: High >190 mg/dL: Very High CARDIAC RISK RATIO 4.8 3.4 - 5.0 C [facility] Blood 01/16/2018 8:19 AM EDT 01/16/2018 8:25 AM EDT us Collette Elyssa PAGE LAB BLOOD ORDERABLES Final R esult [address] [address] * Free T4 (01/16/2018 8:19 AM EDT) Pathologist [facility] FREE T4 1.2 0.9 - 1.7 ng/dL [facility] Blood 01/16/2018 8:19 AM EDT 01/16/2018 8:25 AM EDT September Elyssa THAKKAR-xA[employer] LAB BLOOD ORDERABLES Final R esult [address] [address] * (ABNORMAL) TSH (01/16/2018 8:19 AM EDT) TSH 4.23(H) 0.27 - 4.20 uIU/mL [facility] Blood 01/16/2018 8:19 AM EDT 01/16/2018 8:25 AM EDT September Elyssa PAGE LAB BLOOD ORDERABLES Final R esult [facility] [address] [place] [address] documented in this encounter Visit Diagnoses Diagnosis Myxedema heart disease- Primary Unspecified hypothyroidism Pure hypercholesterolemia Benign prostatic hyperplasia, unspecified whether lower urinary tract symptoms present documented in this encounter Care Teams Lotteries Agent Relationship Specialty Start Date End Date Nickolas Riddle DO [email or web address] PCP - General Internal Medicine 04/13/17 07/08/24 Nickolas Riddle DO [address] [place] [address] PCP - General Internal Medicine 07/09/24 Nickolas Riddle DO [email or web address] Historical LMR Provider 03/27/17 Theo Proctor MD [address] [place] [address] [email or web address] Historical LMR Provider 03/27/17 06/18/21 Adam Gauthier MD [address] [place] [address] Historical LMR Provider 03/27/17 documented as of this encounter Additional Source Comments The information contained in this document represents components of the legal health record. It is not the complete legal health record.[facility]
--- OUTSIDE RECORDS SUMMARY | 2025-03-31 07:44 | XMS_ITS | Encounter Summary ---
Author Organization [facility] Address [address] [facility] [address] [place] [address] Phone Care Team Providers Care Pin Cleaner Name Role Phone Nickolas Riddle DO Unavailable Bigda, Nickolas A DO Primary Care Provider [phone] Bigda, Nickolas A DO Primary Care Provider [phone] Reason for Referral * MRI/CAT Scan - Closed Specialty Diagnoses / Procedures Referred By Contac t Referred To Contact Radiology Diagnoses Dyspnea, unspecified type Shortness of breath Procedures CT Chest CHG DIAGNOSTIC COMPUTED TOMOGRAPHY THORAX W/O CNTRST Emili Aldrich PA [address] [facility] [place] [address] Phone: tel: fax: Referral ID Status Reason Start Date Expiration Date Visits Re quested Visits Authorized [id number] Closed 10/29/2023 12/28/2023 1 1 * Outpatient Procedure - Closed Specialty Diagnoses / Procedures Referred By Contac t Referred To Contact Radiology Diagnoses Dyspnea, unspecified type Shortness of breath Procedures Adult Echo TTE Emili Aldrich PA [address] [facility] [place] [address] Phone: tel: fax: Referral ID Status Reason Start Date Expiration Date Visits Re quested Visits Authorized [id number] Closed 10/29/2023 10/28/2024 1 1 Encounter Details Date Type Department Care Team (Latest Contact Info) Description 10/29/2023 Transcribe Orders Virtual Department [address] [place] [address] Emili Aldrich PA [address] [facility] [place] [address] Dyspnea, unspecified type (Primary Dx); Shortness of [...] main bronchus. There were scattered areas of rznn-au-szxcwxleusrag and groundglass opacity most pronounced at the [...] type documented in this encounter Care Teams Pin Cleaner Relationship Specialty Start Date End Date Nickolas Riddle DO [email or web address] PCP - General Internal Medicine 04/13/17 07/08/24 Nickolas Riddle DO [address] [place] [address] PCP - General Internal Medicine 07/09/24 Nickolas Riddle DO [email or web address] Historical LMR Provider 03/27/17 documented as of this encounter Additional Source Comments The information contained in this document represents components of the legal health record. It is not the complete legal health record.[facility]
--- OUTSIDE RECORDS SUMMARY | 2025-03-31 07:44 | XMS_ITS | Encounter Summary ---
Author Organization [facility] Address [address] [facility] [address] [place] [address] Phone Care Team Providers Care Programmer Analyst Name Role Phone Nickolas Riddle DO Unavailable Bigda, Nickolas A DO Primary Care Provider [phone] Bigda, Nickolas A DO Primary Care Provider [phone] Reason for Referral * MRI/CAT Scan - Closed Specialty Diagnoses / Procedures Referred By Contjuan alberto t Referred To Contact Radiology Diagnoses Abnormal result of other cardiovascular function study Procedures NC Myocardial Perfusion Pharmacologic Stress Multiple CHG MYOCARDIAL SPECT MULTIPLE STUDIES Emili Aldrich PA [address] [place] [address] Phone: tel: fax: Referral ID Status Reason Start Date Expiration Date Visits Re quested Visits Authorized [id number] Closed 11/09/2023 01/08/2024 4 4 Encounter Details Date Type Department Care Team (Latest Contact Info) Description 11/09/2023 Transcribe Orders Virtual Department [address] [place] [address] Emili Aldrich PA [address] [place] [address] Abnormal result of other cardiovascular function study [...] study documented in this encounter Care Teams Programmer Analyst Relationship Specialty Start Date End Date Nickolas Riddle DO [email or web address] PCP - General Internal Medicine 04/13/17 07/08/24 Nickolas Riddle DO [address] [place] [address] [email or web address] PCP - General Internal Medicine 07/09/24 Nickolas Riddle DO [email or web address] Historical LMR Provider 03/27/17 documented as of this encounter Additional Source Comments The information contained in this document represents components of the legal health record. It is not the complete legal health record.[facility]
--- OUTSIDE RECORDS SUMMARY | 2025-03-31 07:44 | XMS_ITS | Encounter Summary ---
Author Organization [facility] Address [address] [place] [address] Phone Care Team Providers Care Access Rn Name Role Phone Nickolas Riddle DO Unavailable Bigda, Nickolas A DO Primary Care Provider [phone] Bigda, Nickolas A DO Primary Care Provider [phone] Encounter Details Date Type Department Care Team (Late st Contact Info) Description 10/29/2023 Procedure Pass [facility] [address] [place] [address] Social History Tobacco Use Types Packs/Day Years [...] on filedocumented in this encounter Care Teams Access Rn Relationship Specialty Start Date End Date Nickolas Riddle DO [email or web address] PCP - General Internal Medicine 04/13/17 07/08/24 Nickolas Riddle DO [address] [place] [address] [email or web address] PCP - General Internal Medicine 07/09/24 Nickolas Riddle DO [email or web address] Historical LMR Provider 03/27/17 documented as of this encounter Additional Source Comments The information contained in this document represents components of the legal health record. It is not the complete legal health record.[facility]
--- OUTSIDE RECORDS SUMMARY | 2025-03-31 07:44 | XMS_ITS | Encounter Summary ---
Author Organization [facility] Address [address] [facility] [address] [place] [address] Phone Care Team Providers Care Charge Machine Operator Name Role Phone Nickolas Riddle DO Unavailable Bigda, Nickolas A DO Primary Care Provider [phone] Bigda, Nickolas A DO Primary Care Provider [phone] Encounter Details Date Type Department Care Team (Latest Contact Info) Description 05/03/2022 Transcribe Orders Virtual Department [address] [place] [address] Emili Aldrich PA [address] [place] [address] [address] [place] [address] Mild persistent asthma without complication (Primary Dx) [...] complication documented in this encounter Care Teams Charge Machine Operator Relationship Specialty Start Date End Date Nickolas Riddle DO PCP - General Internal Medicine 04/13/17 07/08/24 Nickolas Riddle DO [address] [place] [address] PCP - General Internal Medicine 07/09/24 Nickolas Riddle DO Historical LMR Provider 03/27/17 documented as of this encounter Additional Source Comments The information contained in this document represents components of the legal health record. It is not the complete legal health record.[facility]
--- OUTSIDE RECORDS SUMMARY | 2025-03-31 07:44 | XMS_ITS | Encounter Summary ---
Author Organization [facility] Address [address] [place] [address] Phone Care Team Providers Care Senior Catering Sales Manager Name Role Phone Janessa Nickolas Montero DO Unavailable Nickolas Riddle DO Primary Care Provider [phone] Nickolas Riddle DO Primary Care Provider [phone] Encounter Details Date Type Department Care Team (Late st Contact Info) Description 04/20/2022 Procedure Pass [facility] Endoscopy Admitting Dept Virtual Department [address] [place] [address] Social History Tobacco Use Types Packs/Day Years [...] filedocumented in this encounter Care Teams Senior Catering Sales Manager Relationship Specialty Start Date End Date Nickolas Riddle DO PCP - General Internal Medicine 04/13/17 07/08/24 Nickolas Riddle DO [address] [place] [address] PCP - General Internal Medicine 07/09/24 Nickolas Riddle DO [email or web address] Historical LMR Provider 03/27/17 documented as of this encounter Additional Source Comments The information contained in this document represents components of the legal health record. It is not the complete legal health record.[facility]
--- NOTE | 2025-03-31 08:40 | PFT_ITS ---
Indication: Dyspnea Spirometry FEV1 to FVC 76%; FEV1 3.06 L; FVC 4.01 L. There is a trend response to bronchodilators noted. Lung Volumes Total lung capacity 78% predicted; residual volume 65% predicted Diffusion Capacity DLCO 86% predicted Comparisons None Interpretation No obstructive ventilatory defects identified. The patient did have a trend response to bronchodilators noted. There appears to be a mild restrictive ventilatory defect. Diffusing capacity within normal limits. Clinical correlation warranted. MTDD
[2025-03-31 08:42] VITALS: PULSE 59; O2SAT 97
== END 2025-03-31 07:41 | disposition home or self-care (01) ==
LOC: HO.RESP 07:40
PROVIDERS: PCP Internal Medicine; Visit Provider Hospitalist
DX: J45.51 Severe persistent asthma with (acute) exacerbation (principal)
CPT/HCPCS: 94060; 94640; 94727; 94729

== ENCOUNTER → 2025-03-31 08:40 | Outpatient (BNV) | payer OTHER, SELFPAY | PROVIDERS: PCP Internal Medicine; Visit Provider Hospitalist | DX: J45.51 Severe persistent asthma with (acute) exacerbation (principal) | CPT/HCPCS: 94060; 94727; 94729 ==

== ENCOUNTER 2025-04-08 08:18 | Outpatient (REF) | payer OTHER, SELFPAY ==
[2025-04-08 09:00] LABS: Hematocrit 45.2 % (42.0-52.0); Hemoglobin 15.2 g/dl (14.0-18.0); Imm Gran Abs Auto 0.03 X10*3/uL (0.00-0.03); Imm Gran Pct Auto 0.3 % (0.0-0.4); MANUAL DIFF FLAG SCAN; Mean Corpuscular HGB Conc 33.6 g/dl (31.0-36.0); Mean Corpuscular Hemoglobin 31.0 pg (27.0-33.0); Mean Corpuscular Volume 92.1 fL (80.0-98.0); NRBC Abs Auto 0.000 X10*3/uL (0.0-0.012); NRBC Pct Auto 0.0 /100WBC (0.0-0.2); Platelet Count 140 X10*3/uL (160-400); Red Blood Count 4.91 X10*6/uL (4.60-5.80); SCAN SMEAR FLAG 1; White Blood Count 10.9 X10*3/uL (4.8-10.8)
[2025-04-08 09:05] LABS: Lymphocytes Absolute Auto 6.1 X10*3/uL (1.2-4.9)
[2025-04-08 09:29] LABS: Anion Gap 12 (12-20); Blood Urea Nitrogen 17 mg/dL (9-16); Calcium 10.0 mg/dL (8.4-10.2); Carbon Dioxide 32 mmol/L (22-29); Chloride 105 mmol/L (96-108); Estimated Glomerular Filt Rate > 60; Potassium 3.9 mmol/L (3.3-5.1); Sodium 145 mmol/L (135-145)
[2025-04-09 13:04] LABS: Immunoglobulin G Subclass 1 466 mg/dL (382-929); Immunoglobulin G Subclass 2 245 mg/dL (241-700); Immunoglobulin G Subclass 3 57 mg/dL (22-178); Immunoglobulin G Subclass 4 35.9 mg/dL (4-86); Immunoglobulin G Total 776 mg/dL (600-1540)
== END 2025-04-08 08:19 | disposition home or self-care (01) ==
LOC: HO.LAB 08:18
PROVIDERS: PCP Internal Medicine; Visit Provider Hospitalist
DX: J45.51 Severe persistent asthma with (acute) exacerbation (principal); J40 Bronchitis, not specified as acute or chronic; D72.820 Lymphocytosis (symptomatic); Z01.84 Encounter for antibody response examination
CPT/HCPCS: 36415; 80048; 82784; 82785; 85025; 85652

== ENCOUNTER 2025-04-30 11:00 | Outpatient (AMB) | payer OTHER, SELFPAY ==
[2025-04-30 11:03] VITALS: BP 122/58; PULSE 74; O2SAT 100; BMI 34.5
--- NOTE | 2025-04-30 11:03 | MHC.OFFVIS ---
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 He has worsening respiratory symptoms for the last several months. Noticing in the spring that he could not seem as well. He was also noticing increasing shortness of breath. Because of the significant dyspnea on exertion and cough he was evaluated by his primary care doctor. He had a full cardiac workup which apparently per report was okay. He did undergo pulmonary function studies which I personally the report demonstrating mild restrictive ventilatory defects. No evidence of any obstructive ventilatory defects at that time. Diffusing capacity also within normal limits. The patient did undergo a CT scan of the chest which I review the report. He had what appears to be significant amount of bronchiolitis throughout. Patient also had evidence of pneumonitis primarily in the right lower lobe and left upper lobe. Also had evidence of bronchitis some mucus debris in the airway. He does have significant rhonchi and wheezing on examination. He is bringing up phlegm on a regular basis. Therefore will going to go ahead and give him a nebulizer treatment and get a sputum culture for further analysis. He will need additional blood work. The patient is only on albuterol right now. He will need additional therapy to treat the amount of inflammation of the lower respiratory tract. We did talk about exposures. Denies any fumes or toxins. Denies any significant allergy exposure. Denies any exposure to mold or farms. Denies any birds. 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 He does have a history of Ravi Luis other autoimmune diseases. Will go ahead and test for any other inflammatory conditions at this time. 04/23/2024 the patient is here for a pulmonary follow-up visit. He is still having his cough. Still having some wheezing. The nebulizer has been helpful. He is still having some chest congestion. His cultures were negative for any infection. Still waiting for his mycobacterial cultures. Blood work demonstrated a slightly elevated BECCA which is likely nonsignificant and also demonstrated significant allergies specially to dust mites and also environmental allergies. The patient was not able to start the Advair HFA because he did not receive the pharmacy. Was sent but likely it was not approved by his insurance. We never got a call. Will had and set him Wixela which is covered. 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 If at any point the powdered inhaler bothers his voice will go ahead and do a prior approval to get him a HFA inhaler such as Advair HFA. In the meantime the patient should continue the nebulizer. He never got the Acapella valve. I will go ahead and requested again from the [facility]. He did bring a CD and I will take a look at the images to see the degree of bronchiolitis. He is going to work on getting hypoallergenic covers and also maybe removing the carpus out of his bedroom. The patient will return 6-8 weeks. If he has no better or if he is having a reaction to the medication he will call for an earlier evaluation or change. 06/17/2024 the patient is here for a pulmonary follow-up visit. Overall the patient has been doing better. He is still having chest congestion though. He has not started the Wixela because he has the consult coming up and he does not want a message voice for the consult. Then afterwards he will try the Wixela. In the meantime the patient did bring the CD in for a CT scan that he had back in 11/29/2023 this was done at [facility]. We did personally reviewed. He had some evidence of bronchiolitis with a minimal and did have pulmonary nodules in addition to some inflammatory areas suggesting pneumonitis. Also had evidence of chronic bronchitis with thickening of the airways and dilation of the airways. This is mainly at the bases. We were able to teach him how to use the Acapella valve use that in the office and was able to bring up some phlegm. He is going to do it again at home and try to continue to use it after the nebulized therapy for chest physical therapy. He is going to try to bring a sputum sample to the laboratory for further analysis. We can also consider bronchoscopy but I would be very cautious with the vocal cords specially with having to go through the vocal cords for an airway survey. Will plan to repeat the CT scan in 3 months to follow-up with his pulmonary nodules have not follow-up then. In the meantime he can start Wixela after his cancer to see this helpful. Once we get a sputum culture we can decide if we can treat him we have to be very careful with significant Ravi Luis reaction that he had previously. 09/15/2024 the patient is here for a pulmonary follow-up visit. Overall the patient has been doing fair. Apparently he was exposed to a sick contact and started developing UR like symptoms and now developing worsening chest tightness and cough. The mucus is yellowish in color. Moderate severity. He has been using the Xopenex. Initially he had started the Wixela. But when he got sick he was under the impression that he could not using during an acute flare-up so he stopped the medicine. I did reassure him that he should continue the medicine that although it is not meant to be used for acute therapy he should continue a during an acute flare up to minimize symptoms. The patient did have a CT scan of the chest as well before he got sick back in July demonstrating bronchiolitis in the right lower lobe suggesting the possibility of micro aspirations in addition to nodular ground-glass nodular densities in the upper lung zones suggesting some degree of inflammation. This brings up the question of a hypersensitivity type of reaction. Sarcoid is also in differential. His blood work was all negative except for his significant allergies and also a slight elevation in the BECCA does likely to be a false-positive. For now though will go ahead and request a barium swallow based on the possibility of micro aspirations. The patient should also sleep elevated. Because of the wheezing he will be prescribed a Medrol Cristofer to try helping with the wheezing. He can continue with Wixela at least on a daily basis. He can use the Xopenex as needed. And will sleep elevated. If his symptoms are not getting better we did talk about antibiotic therapies. Apparently he has taken a Z-Cristofer in the past any tolerated that well although we see erythromycin based medications and allergies this for the patient is not correct. Therefore I will remove azithromycin and erythromycin from his allergies at this time. 01/22/2025 the patient is here for pulmonary follow-up visit. Overall the patient has been doing fair. He was up in [place] and he had a hard time with the breathing. Apparently due to the air quality. He had to use his nebulizer which was probably helpful. He is just congestion is a little better although still bringing some phlegm. He recently completed a course of azithromycin and steroids. He has a hard time with the Wixela because it is powder. He does need some respiratory medications. I did provide her a spacer and will order some Symbicort to see if we can not tolerate a little bit better. 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 We did talk about the Pseudomonas. 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 The patient likely has a component of micro aspirations into the lungs resulting in the recurrent infections and chronic bronchitis. He does sleep elevated and will do a barium swallow to assess any evidence of any reflux disease. We did review his last CT scan of the chest that he had back in October. No significant evidence of treating budding any further appreciated which is reassuring. He does have some scarring at the right base likely from an old infection and evidence of chronic bronchitis. Will plan to repeat his pulmonary function studies, barium swallow, blood work and will see his response to the new inhaler during the next visit in 3 months. 04/30/2025 the patient is here for pulmonary follow-up visit. The patient overall has been doing fair. He has had worsening chest congestion. Also complaining of left-sided pleuritic discomfort. Appears to be reproducible likely muscle strain although can not rule out pleurisy. The patient also has significant chest congestion. The mucus is light yellow in color hemoptysis. The patient does have wheezing on exam. Also has rhonchi on exam. The patient has been the Symbicort only partially helpful. He did have PFTs done which I personally reviewed demonstrating small airways disease in are consistent with asthma. The patient did have blood work. His eosinophil count is increased now to 1100. The patient has severe asthma will require additional prednisone at this time. In addition to that will send him another course of antibiotics. The last culture was positive for Pseudomonas but right now the mucus does not appear to be consistent with Pseudomonas. He was start a Z-Cristofer. The patient will also start Fasenra as soon as possible to treat his severe eosinophilic asthma. [facility] Medical History (Updated 04/30/25 @ 21:40 by Jorge Cardenas MD) LUIS on CPAP Kidney stones Pulmonary nodules Asthma Bronchitis Pneumonitis Bronchiolitis Surgical History [place] teeth extracted Family History Brother Idiopathic thrombocytopenic purpura (ITP) Colorectal cancer History of splenectomy Maternal Grandmother Diabetes Father Heart attack Mother Heart problem Cancer of kidney Sister HTN (hypertension) Other Family history of ITP Social History Household Members: Spouse Patient Tobacco Use Status: Never used Tobacco service: No Current occupational status: employed Review of Systems Const Denies fever(s) ENT Reports change in voice and Reports sore throat Card Denies chest pain Resp Reports chest congestion, Reports cough and Reports wheezing GI Reports no additional complaints Musc Reports no additional complaints Skin/Breast Denies rash Neuro Reports no additional complaints Kana/Lymph Reports no additional complaints Aller/Immun Reports wheezing Physical Exam Vital Signs: Last Vital Signs Pulse 74 04/30/25 11:03 BP 122/58 L 04/30/25 11:03 Pulse Ox 100 04/30/25 11:03 Oxygen Delivery Method Room Air 04/30/25 11:03 BMI result Body Mass Index 34.5 Const General: comfortable Neck Neck: Yes supple Chest Chest palpation & inspection: normal inspection of the chest Resp Effort & Inspection: normal respiratory effort and prolonged expiratory phase Auscultation: rhonchi, wheezes and diminished lung sounds Cardio Heart sounds: S1 normal heart sound present and S2 normal heart sound present GI Palpation (GI): Soft to palpation Skin General skin exam: no rashes or lesions noted Extrem General: Yes no clubbing, cyanosis or edema Assessment & Plan Assessment & Plan (1) Asthma: Code(s): J45.909 - Unspecified asthma, uncomplicated Category: Medical Qualifiers: Asthma complication type: with acute exacerbation Asthma persistence: persistent Asthma severity: severe Qualified Code(s): J45.51 - Severe persistent asthma with (acute) exacerbation (2) Bronchiolitis: Code(s): J21.9 - Acute bronchiolitis, unspecified Category: Medical (3) Bronchitis: Code(s): J40 - Bronchitis, not specified as acute or chronic Category: Medical (4) Pulmonary nodules: Code(s): R91.8 - Other nonspecific abnormal finding of lung field Category: Medical (5) Pleuritic chest pain: Code(s): R07.81 - Pleurodynia Category: Medical (6) LUIS on CPAP: Code(s): G47.33 - Obstructive sleep apnea (adult) (pediatric) Category: Medical Plan Symbicort start Prednisone start Fasenra CXR and Bloodwork if chest pain persist Barium swallow pending WICHO nebulizer xopenex BID followed by CPT with acapella valve hypoallergenic covers repeat CT chest, better sputum cx +pseudomonas s/p treatment sleep elevated reflux diet consider bronchoscopy continue APAP F/U 3-4 months Orders: Orders Venous Blood Gas Today R07.81 - Pleurodynia XR chest 2V Today R07.81 - Pleurodynia D Dimer High Sensitivity Today R07.81 - Pleurodynia Basic Metabolic Panel Today R07.81 - Pleurodynia Medications: New methylprednisolone (Medrol (Cristofer)) PO PER PKG DIR 21 ea 0RF 6 days Coding Level of Care Code Complex visit Add On G2211 Diagnoses Severe persistent asthma with acute exacerbation J45.51 Asthma complication type: with acute exacerbation Asthma persistence: persistent Asthma severity: severe Bronchiolitis J21.9 Bronchitis J40 Pulmonary nodules R91.8 Pleuritic chest pain R07.81 LUIS on CPAP G47.33 Time Spent (min) 17
--- OUTSIDE RECORDS SUMMARY | 2025-04-30 16:46 | XMS_ITS | Encounter Summary ---
Author Organization [facility] Address [address] [place] [address] Phone Care Team Providers Care Patient Services Rep Name Role Phone Nickolas Riddle Unavailable Theo Proctor MD Unavailable [phone] Adam Gauthier MD Unavailable [phone] Nickolas Riddle DO Primary Care Provider [phone] Nickolas Riddle DO Primary Care Provider [phone] Encounter Details Date Type Department Care Team (Latest Contact Info) Description 02/05/2018 Transcribe Orders [address] [address] Collette Bergeron, CAMILO Carlos. [address] [place] [address] [email or web address] Male hypogonadism (Primary Dx); Restless legs; Screening [...] FREE TESTOSTERONE 6.20 3.67 - 13.9 ng/dL [facility] Comment: (NOTE) ADDITIONAL INFORMATION Testing performed by [facility]. This test was developed and its performance characteristics determined by [facility] in a manner consistent with CLIA requirements. This test has not been cleared or approved by the U.S. Food and Drug Administration. TESTOSTERONE, TOTAL 310 240 - 950 ng/dL [facility] Comment: (NOTE) ADDITIONAL INFORMATION Testing performed by Liquid Chromatography-Tandem Mass Spectrometry (LC-MS/MS). This test was developed and its performance characteristics determined by [facility] in a manner consistent with CLIA requirements. This test has not been cleared or approved by the U.S. Food and Drug Administration. Blood 02/05/2018 8:10 AM EDT 02/05/2018 8:20 AM EDT Collette [facility] LAB BLOOD BKR ORDERABLES Fin al Result Performing Organization Address City/[facility] Co de Phone Number [facility] [address] [place] [address] * Hepatitis C antibody, qualitative (02/05/2018 8:10 AM EDT) Pathologist [facility] HCV Negative Negative [facility] Comment: This is a screening test and should be confirmed with molecular testing Blood 02/05/2018 8:10 AM EDT 02/05/2018 8:20 AM EDT [facility] LAB BLOOD BKR ORDERABLES Fin al Result Performing Organization Address City/[facility]/ZIP Co de Phone Number [facility] [address] [place] [address] * Iron and iron binding capacity (02/05/2018 8:10 AM EDT) IRON 81 45 - 160 ug/dL [facility] IRON BINDING CAPACITY 236 228 - 428 ug/dL [facility] TRANSFERRIN SATURAT. 34 20 - 55 % [facility] Blood 02/05/2018 8:10 AM EDT 02/05/2018 8:20 AM EDT September Elyssa [facility] LAB BLOOD BKR ORDERABLES Fin al Result [facility] [address] [place] [address] documented in this encounter Visit Diagnoses Diagnosis Male hypogonadism- Primary Other testicular hypofunction Restless legs Restless legs syndrome (RLS) Screening for condition Screening for unspecified condition documented in this encounter Care Teams Patient Services Rep Relationship Specialty Start Date End Date Nickolas Riddle DO PCP - General Internal Medicine 04/13/17 07/08/24 Nickolas Riddle DO [address] [place] [address] PCP - General Internal Medicine 07/09/24 Nickolas Riddle DO [email or web address] Historical LMR Provider 03/27/17 Theo Proctor MD [address] [place] [address] Historical LMR Provider 03/27/17 06/18/21 Adam Gauthier MD [address] [place] [address] Historical LMR Provider 03/27/17 documented as of this encounter Additional Source Comments The information contained in this document represents components of the legal health record. It is not the complete legal health record.[facility]
--- OUTSIDE RECORDS SUMMARY | 2025-04-30 16:46 | XMS_ITS | Encounter Summary ---
Author Organization [facility] Address [address] [place] [address] Phone Care Team Providers Care Cleaner Industrial Name Role Phone Nickolas Riddle DO Unavailable Theo Proctor MD Unavailable [phone] Adam Gauthier MD Unavailable [phone] Nickolas Riddle DO Primary Care Provider [phone] Nickolas Riddle DO Primary Care Provider [phone] Encounter Details Date Type Department Care Team (Late st Contact Info) Description 12/14/2019 Procedure Pass [facility], Ct Scan - [address] [address] Social History Tobacco Use Types Packs/Day Years [...] on filedocumented in this encounter Care Teams Cleaner Industrial Relationship Specialty Start Date End Date Nickolas Riddle DO PCP - General Internal Medicine 04/13/17 07/08/24 Nickolas Riddle DO [address] [place] [address] [email or web address] PCP - General Internal Medicine 07/09/24 Nickolas Riddle DO [email or web address] Historical LMR Provider 03/27/17 Theo Proctor MD [address] [place] [address] [email or web address] Historical LMR Provider 03/27/17 06/18/21 Adam Gauthier MD [address] [place] [address] Historical LMR Provider 03/27/17 documented as of this encounter Additional Source Comments The information contained in this document represents components of the legal health record. It is not the complete legal health record.[facility]
--- OUTSIDE RECORDS SUMMARY | 2025-04-30 16:46 | XMS_ITS | Encounter Summary ---
Author Organization [facility] Address [address] [facility] [address] [place] [address] Phone Care Team Providers Care Charrer Name Role Phone BarryNickolas lake Unavailable Theo Proctor MD Unavailable + [phone] Adam Gauthier MD Unavailable [phone] Nickolas Riddle DO Primary Care Provider [phone] Nickolas Riddle DO Primary Care Provider [phone] Encounter Details Date Type Department Care Team (Latest Contact Info) Description 11/19/2019 Transcribe Orders [address] [address] Emili Aldrich PA 6 [facility] [address] [place], [place] [id number] Hypothyroidism, unspecified type (Primary Dx); Chest pain, [...] EDT) PSA 1.42 0 - 4.00 ng/mL [facility] Blood 11/19/2019 7:53 AM EDT 11/19/2019 10:25 AM EDT us Emili THAKKAR LAB BLOOD BKR ORDERABLES Fi nal Result Performing Organization Address [facility] Co de Phone Number [address] [address] * (ABNORMAL) Lipid panel (11/19/2019 7:53 AM EDT) HDL 38 mg/dL [facility] Comment: Interpretation <40 mg/dL: Low HDL cholesterol (major risk factor for CHD) Greater than or equal to 60 mg/dL: High HDL cholesterol ( negative risk factor for CHD) HDL - cholesterol is affected by a number of factors, e.g. smoking, excerise, hormones, sex and age. CHOLESTEROL 221 0 - 240 mg/dL [facility] TRIGLYCERIDES 259(H) 30 - 160 mg/dL [facility] LDL 131(H) 50 - 129 mg/dL [facility] Comment: LDL levels in terms of risk for coronary heart disease: <100 mg/dL: Optimal 100-129 mg/dL: Near or above optimal 130-159 mg/dL: Borderline high 160-189 mg/dL: High >190 mg/dL: Very High CARDIAC RISK RATIO 5.8(H) 3.4 - 5.0 C [facility] Blood 11/19/2019 7:53 AM EDT 11/19/2019 10:26 AM EDT Emili THAKKAR LAB BLOOD BKR ORDERABLES Fi nal Result Performing Organization Address City/[facility]/ZIP Co de Phone Number [address] [address] * 25-OH vitamin D (11/19/2019 7:53 AM EDT) 25 [place] VIT D (TOTAL) 33 30 - 60 ng/mL [facility] Blood 11/19/2019 7:53 AM EDT 11/19/2019 10:26 AM EDT us Emili THAKKAR LAB BLOOD BKR ORDERABLES Fi nal Result Performing Organization Address [facility]/ZIP Co de Phone Number [address] [address] * (ABNORMAL) Comprehensive metabolic panel (11/19/2019 7:53 AM EDT) SODIUM 142 133 - 146 mmol/L [facility] POTASSIUM 4.2 3.3 - 5.1 mmol/L [facility] CHLORIDE 102 96 - 108 mmol/L [facility] CO2 29 21 - 35 mmol/L [facility] BUN 22(H) 6 - 19 mg/dL [facility] CREATININE 0.90 0.5 - 1.5 mg/dL [facility] GLUCOSE 97 70 - 99 mg/dL [facility] ALBUMIN 4.3 3.9 - 4.8 g/dL [facility] TOTAL PROTEIN 7.1 6.5 - 8.0 g/dL [facility] CALCIUM 9.4 8.4 - 10.3 mg/dL [facility] ALKALINE PHOSPHATASE 113 39 - 117 U/L [facility] TOTAL BILIRUBIN 0.7 0.0 - 1.2 mg/dL [facility] AST 50(H) 0 - 37 U/L [facility] ALT 50(H) 0 - 40 U/L [facility] GLOBULIN 2.8 1 - 4.8 g/dL [facility] EGFR 91 >59 mL/min/1.7 3m2 [facility] Comment:If patient is black, multiply result by 1.159. Estimated glomerular filtration rate calculated using the CKD-EPI equation. ANION GAP 15 10 - 20 mmol/L [facility] Blood 11/19/2019 7:53 AM EDT 11/19/2019 10:26 AM EDT Emili THAKKAR LAB BLOOD BKR ORDERABLES Fi nal Result [address] [place] [address] * (ABNORMAL) CBC and differential (11/19/2019 7:53 AM EDT) WBC 6.58 4.00 - 11.00 K/uL [facility] Comment:Note Reference Range updates to all CBC and Differential results. RBC 4.74 3.90 - 5.69 M/uL [facility] HGB 14.8 12.4 - 17.3 g/dL [facility] Comment:Note updated Referen ce Ranges for all CBC and Differential results. HCT 42.2 37.0 - 51.0 % [facility] PLT 158 140 - 430 K/uL [facility] MCV 89.0 78.0 - 97.0 fL [facility] MCH 31.2 25.0 - 33.0 pg [facility] MCHC 35.1 32.0 - 36.0 g/dL [facility] RDW 13.2 11.0 - 15.0 % [facility] MPV 13.2(H) 8.4 - 12.8 fl [facility] NRBC 0.00 0 /100 WBCs [facility] ABSOLUTE NRBC 0.00 0 K/uL [facility] DIFF METHOD Auto [facility] NEUTS 51.0 43.0 - 75.0 % [facility] LYMPHS 32.2 18.2 - 47.4 % [facility] MONOS 8.1 4.00 - 11.00 % [facility] EOS 7.4 0.0 - 8.0 % [facility] BASOS 1.1 0.0 - 2.0 % [facility] Granulocytes, immature (%) 0.2 0.0 - 0.9 % [facility] ABSOLUTE NEUTS 3.36 1.80 - 7.70 K/uL [facility] ABSOLUTE LYMPHS 2.12 1.00 - 3.10 K/uL [facility] ABSOLUTE MONOS 0.53 0.20 - 0.80 K/uL [facility] ABSOLUTE EOS 0.49 0.00 - 0.80 K/uL [facility] ABSOLUTE BASOS 0.07 0.00 - 0.09 K/uL [facility] Granulocytes, immature 0.01 0.00 - 0.05 K/uL [facility] Blood 11/19/2019 7:53 AM EDT 11/19/2019 10:26 AM EDT Emili THAKKAR LAB BLOOD BKR ORDERABLES Fi nal Result [facility] [address] [place] [address] documented in this encounter Visit Diagnoses Diagnosis Hypothyroidism, unspecified type- Primary Chest pain, unspecified type documented in this encounter Care Teams Charrer Relationship Specialty Start Date End Date Nickolas Riddle DO PCP - General Internal Medicine 04/13/17 07/08/24 Nickolas Riddle DO [address] [place] [address] PCP - General Internal Medicine 07/09/24 Nickolas Riddle DO Historical LMR Provider 03/27/17 Theo Proctor MD [address] [place] [address] [email or web address] Historical LMR Provider 03/27/17 06/18/21 Adam Gauthier MD [address] [place] [address] Historical LMR Provider 03/27/17 documented as of this encounter Additional Source Comments The information contained in this document represents components of the legal health record. It is not the complete legal health record.[facility]
--- OUTSIDE RECORDS SUMMARY | 2025-04-30 16:46 | XMS_ITS | Clinical Summary ---
Author Organization [facility] Address [address] [place] [address] Phone Care Team Providers Care Cable Maker Name Role Phone Luis Munson DO Unavailable Luis Munson DO Primary Care Provider [phone] Allergies Active Allergy Reactions Criticality Noted Date Comments Gluten Protein GI Upset Low 08/06/2018 Milk Containing Products (Dairy) Other (See Comments) High 08/06/2018 Throat Swelling Penicillins Other (See Comments) High 08/06/2018 Ravi luis Syndrome Ssskv-Ppxzmna-Gdohvo Other (See Comments) High 08/06 Throat swelling [...] Additional history exists POTASSIUM LEVEL 11/18/2025 11/18/2024, 2 08/2023, 10/23/2022, Additional history exists TSH LEVEL 11/18/2025 11/18/2024, 01/10, 10/19/2021, Additional history exists LIPID PANEL 11/18/2029 11/18/2024, 10/09, 10/19/2021, Additional [...] medical examination at a health care facility THYROID STIMULATING HORMONE (TSH) Routine 11/18/2024 10:18 AM EDT Central hypothyroidism Routine general medical examination at a health care facility COMPREHENSIVE METABOLIC PANEL (CMP) Routine 11/18/2024 10:18 AM EDT Central hypothyroidism [...] EDT) SODIUM 140 133 - 146 mmol/L [facility] POTASSIUM 4.6 3.3 - 5.1 mmol/L [facility] CHLORIDE 103 96 - 108 mmol/L [facility] CO2 30 21 - 35 mmol/L [facility] BUN 13 6 - 19 mg/dL [facility] CREATININE 1.00 0.5 - 1.5 mg/dL [facility] GLUCOSE 98 70 - 99 mg/dL [facility] ALBUMIN 4.1 3.9 - 4.8 g/dL [facility] TOTAL PROTEIN 6.6 6.5 - 8.0 g/dL [facility] CALCIUM 9.5 8.4 - 10.3 mg/dL [facility] ALKALINE PHOSPHATASE 96 39 - 117 U/L [facility] TOTAL BILIRUBIN 0.8 0.0 - 1.2 mg/dL [facility] AST 22 0 - 37 U/L [facility] ALT 23 0 - 40 U/L [facility] GLOBULIN 2.5 1 - 4.8 g/dL [facility] EGFR 82 >59 mL/min/1.7 3m2 [facility] Comment:Estimated glomerular filtration rate calculated using the CKD-EPI refit equation. ANION GAP 12 10 - 20 mmol/L [facility] Blood 11/18/2024 10:1 8 AM EDT 11/18/2024 10:23 AM EDT us Emili THAKKAR LAB BLOOD BKR ORDERABLES Fi nal Result [facility] [address] [place] [address] * (ABNORMAL) TSH (11/18/2024 10:18 AM EDT) TSH 4.58(H) 0.27 - 4.20 uIU/mL [facility] Blood 11/18/2024 10:1 8 AM EDT 11/18/2024 10:23 AM EDT us Emili THAKKAR LAB BLOOD BKR ORDERABLES Fi nal Result Performing Organization Address [facility] [place]/[facility] Co de Phone Number [address] [address] * (ABNORMAL) Lipid panel (11/18/2024 10:18 AM EDT) HDL 32 mg/dL [facility] Comment: Interpretation <40 mg/dL: Low HDL cholesterol (major risk factor for CHD) Greater than or equal to 60 mg/dL: High HDL cholesterol ( negative risk factor for CHD) HDL - cholesterol is affected by a number of factors, e.g. smoking, excerise, hormones, sex and age. CHOLESTEROL 188 0 - 240 mg/dL [facility] TRIGLYCERIDES 223(H) 30 - 160 mg/dL [facility] LDL 111 50 - 129 mg/dL [facility] Comment: LDL levels in terms of risk for coronary heart disease: <100 mg/dL: Optimal 100-129 mg/dL: Near or above optimal 130-159 mg/dL: Borderline high 160-189 mg/dL: High >190 mg/dL: Very High CARDIAC RISK RATIO 5.9(H) 3.4 - 5.0 C [facility] Blood 11/18/2024 10:1 8 AM EDT 11/18/2024 10:24 AM EDT Emili THAKKAR LAB BLOOD BKR ORDERABLES Fi nal Result Performing Organization Address [facility] [place] Co de Phone Number [address] [address] * ENDOSCOPY, COLON (04/20/2022 1:33 PM EST) Narrative Transcriptions Arina Antunez MD - 04/20/2022 1:33 PM EST Patient Name: Lionel Jarvis Attending MD:: ARINA ANTUNEZ MD Procedure Date: 04/20/2022 1:33 PM Date of : 1955 Age: 66 Admit Type: Outpatient Gender: Male Room: [place] [address] Referring MD: LUIS MUNSON DO Exam Type: [...] monitored continuously. The Olympus adult variable colonoscope [id number] #2 was introduced through the anus and [...] 1:33 PM Procedure Code(s): --- Professional --- 00973, Colonoscopy, flexible; diagnostic, including collection of specimen(s) by brushing or washing, when performed (separateprocedure) --- Technical --- 68244, Colonoscopy, flexible; diagnostic, including collection of specimen(s) by brushing or washing, when performed (separateprocedure) Diagnosis Code(s): --- Professional --- Z80.0, Family history of malignant neoplasm of digestive organs --- Technical --- Z80.0, Family history of malignant neoplasm of digestive organs CPT copyright 2020 [employer]. All rights reserved. The codes documented in this report are preliminary and upon medical biller coder reviewmay be revised to meet current compliance requirements. Procedure Date: 04/20/2022 1:33:[address] [place] [address] us Luis A Janessa DO GI PROCEDURE ORDERABLES Final Re sult * Hepatitis C antibody, qualitative (04/23/2019 8:58 AM EST) HCV NON-REACTIV E NON-REACTI VE [facility] Blood 04/23/2019 8:58 AM EST 04/23/2019 10:20 AM EST us Luis A Barryda DO LAB BLOOD BKR ORDERABLES Final R esult [address] [address] * ENDOSCOPY, SIGMOID (10/10/2018 10:29 AM EDT) Narrative Transcriptions Arina Antunez MD - 10/10/2018 10:29 AM EDT Patient Name: Lionel Jarvis Attending MD:: ARINA ANTUNEZ MD Procedure Date: 10/10/2018 10:29 AM Date of : 1955 Age: 62 Admit Type: Outpatient Gender: Male Room: [place] [address] Referring MD: LUIS MUNSON DO Exam Type: [...] monitored continuously. The Olympus adult variable colonoscope [id number] #2 was introduced through theanus and advanced [...] 10:29 AM Procedure Code(s): --- Professional --- 95270, Sigmoidoscopy, flexible; with removal of tumor(s), polyp(s),or other lesion(s) by hot biopsy forceps --- Technical --- 94374, Sigmoidoscopy, flexible; with removal of tumor(s), polyp(s),or other lesion(s) by hot biopsy forceps Diagnosis Code(s): --- Professional --- K62.1, Rectal polyp Z80.0, Family history of malignant neoplasm of digestive organs Z86.010, Personal history of colonic polyps --- Technical --- K62.1, Rectal polyp Z80.0, Family history of malignant neoplasm of digestive organs Z86.010, Personal history of colonic polyps CPT copyright 2016 [employer]. All rights reserved. The codes documented in this report are preliminary and upon medical biller coder reviewmay be revised to meet current compliance requirements. [address] [place] [address] us Luis Munson DO GI PROCEDURE ORDERABLES Final Re sult from Last 3 Months or Most Recently Relevant to Health Maintenance [facility] [address] [place] [id number] [facility] HMO [facility] HMO Care Teams Cable Maker Relationship Specialty Start Date End Date Luis Munson DO [address] [place] [address] PCP - General Internal Medicine 07/09/24 Luis Munson DO Historical LMR Provider 03/27/17 Additional Source Comments The information contained in this document represents components of the legal health record. It is not the complete legal health record.[facility]
--- OUTSIDE RECORDS SUMMARY | 2025-04-30 16:46 | XMS_ITS | Encounter Summary ---
Author Organization [facility] Address [address] [facility] [address] [place] [address] Phone Care Team Providers Care Program Manager Transportation Name Role Phone Nickolas Riddle DO Unavailable Theo Proctor MD Unavailable [phone] Adam Gauthier MD Unavailable [phone] Nickolas Riddle DO Primary Care Provider [phone] Nickolas Riddle DO Primary Care Provider [phone] Encounter Details Date Type Department Care Team (Late st Contact Info) Description 10/04/2018 Transcribe Orders [address] [address] Nickolas Riddle DO [address] [facility] [place], [place] [id number] Myxedema heart disease (Primary Dx) Social History [...] EDT) TSH 5.22(H) 0.27 - 4.20 uIU/mL [facility] Blood 10/04/2018 8:34 AM EDT 10/04/2018 8:58 AM EDT us Nickolas A Barryda DO LAB BLOOD BKR ORDERABLES Final R esult Performing Organization Address City/[facility]/ZIP Co de Phone Number [address] [address] * T4, total (10/04/2018 8:34 AM EDT) THYROXINE 7.5 4.6 - 12.0 ug/dL [facility] Blood 10/04/2018 8:34 AM EDT 10/04/2018 8:58 AM EDT us Nickolas Kylah Barryda DO LAB BLOOD ORDERABLES Final Resul t Performing Organization Address [facility] Co de Phone Number [address] [address] documented in this encounter Visit Diagnoses Diagnosis Myxedema heart disease- Primary Unspecified hypothyroidism documented in this encounter Care Teams Program Manager Transportation Relationship Specialty Start Date End Date Nickolas Riddle DO PCP - General Internal Medicine 04/13/17 07/08/24 Nickolas Riddle DO [address] [place] [address] PCP - General Internal Medicine 07/09/24 Nickolas Riddle DO Historical LMR Provider 03/27/17 Theo Proctor MD [address] [place] [address] [email or web address] Historical LMR Provider 03/27/17 06/18/21 Adam Gauthier MD [address] [place] [address] Historical LMR Provider 03/27/17 documented as of this encounter Additional Source Comments The information contained in this document represents components of the legal health record. It is not the complete legal health record.[facility]
--- OUTSIDE RECORDS SUMMARY | 2025-04-30 16:46 | XMS_ITS | Encounter Summary ---
Author Organization [facility] Address [address] [place] [address] Phone Care Team Providers Care Equipment Operat0R Name Role Phone Nickolas Riddle Unavailable Theo Proctor MD Unavailable + [phone] Adam Gauthier MD Unavailable [phone] Nickolas Riddle DO Primary Care Provider [phone] Nickolas Riddle DO Primary Care Provider [phone] Encounter Details Date Type Department Care Team (Late st Contact Info) Description 03/25/2018 Ancillary Orders Virtual Department [address] [place] [address] Elyssa ColletteCAMILO Denis. [address] [place] [address] [email or web address] Pneumonia due to infectious organism, [...] lung documented in this encounter Care Teams Equipment Operat0R Relationship Specialty Start Date End Date Nickolas Riddle DO PCP - General Internal Medicine 04/13/17 07/08/24 Nickolas Riddle DO [address] [place] [address] PCP - General Internal Medicine 07/09/24 Nicoklas Riddle DO Historical LMR Provider 03/27/17 [place] [address] [place] [address] [email or web address] Historical LMR Provider 03/27/17 06/18/21 Adam Gauthier MD [address] [place] [address] Historical LMR Provider 03/27/17 documented as of this encounter Additional Source Comments The information contained in this document represents components of the legal health record. It is not the complete legal health record.[facility]
--- OUTSIDE RECORDS SUMMARY | 2025-04-30 16:47 | XMS_ITS | Encounter Summary ---
Author Organization [facility] Address [address] [place] [address] Phone Care Team Providers Care Side Puller Name Role Phone Nickolas Riddle DO Unavailable Theo Proctor MD Unavailable + [phone] Adam Gauthier MD Unavailable [phone] Nickolas Riddle DO Primary Care Provider [phone] Nickolas Riddle DO Primary Care Provider [phone] Encounter Details Date Type Department Care Team (Late st Contact Info) Description 08/13/2018 Procedure Pass [facility] Endoscopy Admitting Dept Virtual Department [address] [place] [address] Social History Tobacco Use Types Packs/Day Years [...] on filedocumented in this encounter Care Teams Side Puller Relationship Specialty Start Date End Date Nickolas Riddle DO PCP - General Internal Medicine 04/13/17 07/08/24 Nickolas Riddle DO [address] [place] [address] [email or web address] PCP - General Internal Medicine 07/09/24 Nickolas Riddle DO [email or web address] Historical LMR Provider 03/27/17 Theo Proctor MD [address] [place] [address] [email or web address] Historical LMR Provider 03/27/17 06/18/21 Adam Gauthier MD [address] [place] [address] Historical LMR Provider 03/27/17 documented as of this encounter Additional Source Comments The information contained in this document represents components of the legal health record. It is not the complete legal health record.[facility]
--- OUTSIDE RECORDS SUMMARY | 2025-04-30 16:47 | XMS_ITS | Encounter Summary ---
Author Organization [facility] Address [address] [facility] [address] [place] [address] Phone Care Team Providers Care Track Superintendent Name Role Phone BarryNickolas lake Unavailable Theo Proctor MD Unavailable + [phone] Adam Gauthier MD Unavailable [phone] Nickolas Riddle DO Primary Care Provider [phone] Nickolas Riddle DO Primary Care Provider [phone] Encounter Details Date Type Department Care Team (Latest Contact Info) Description 11/25/2019 Transcribe Orders [address] [id number] Emili Aldrich PA [address] [facility] [address] [place], [place] [phone] Nonspecific abnormal results of liver function study [...] ALKALINE PHOSPHATASE 110 39 - 117 U/L [facility] TOTAL BILIRUBIN 0.5 0.0 - 1.2 mg/dL [facility] DIRECT BILIRUBIN <0.2 0 - 0.3 mg/dL [facility] Bilirubin (Indirect) NOT CALCULATED 0 - 1.5 mg/dL [facility] AST 28 0 - 37 U/L [facility] ALT 32 0 - 40 U/L [facility] TOTAL PROTEIN 7.2 6.5 - 8.0 g/dL [facility] ALBUMIN 4.3 3.9 - 4.8 g/dL [facility] GLOBULIN 2.9 1 - 4.8 g/dL [facility] A/G Ratio 1.48 1.00 - 4.80 RATIO [facility] Blood 11/25/2019 9:24 AM EDT 11/25/2019 10:21 AM EDT us Emili THAKKAR LAB BLOOD BKR ORDERABLES Fi nal Result [facility] [address] [place] [address] documented in this encounter Visit Diagnoses Diagnosis Nonspecific abnormal results of liver function study- Primary documented in this encounter Care Teams Track Superintendent Relationship Specialty Start Date End Date Nickolas Riddle DO PCP - General Internal Medicine 04/13/17 07/08/24 Nickolas Riddle DO [address] [place] [address] PCP - General Internal Medicine 07/09/24 Nickolas Riddle DO Historical LMR Provider 03/27/17 Theo Proctor MD [address] [place] [address] [email or web address] Historical LMR Provider 03/27/17 06/18/21 Adam Gauthier MD [address] [place] [address] Historical LMR Provider 03/27/17 documented as of this encounter Additional Source Comments The information contained in this document represents components of the legal health record. It is not the complete legal health record.[facility]
--- OUTSIDE RECORDS SUMMARY | 2025-04-30 16:47 | XMS_ITS | Encounter Summary ---
Author Organization [facility] Address [address] [address] Phone Care Team Providers Care Interactive Media Director Name Role Phone Nickolas Riddle DO Unavailable Theo Proctor MD Unavailable + [phone] Adam Gauthier MD Unavailable [phone] Nickolas Riddle DO Primary Care Provider [phone] Nickolas Riddle DO Primary Care Provider [phone] Encounter Details Date Type Department Care Team (Late st Contact Info) Description 04/15/2019 Transcribe Orders Virtual Department [address] [place] [address] Nickolas Riddle DO [address] [facility] [place] [address] [place] [address] [email or web address] Pleurodynia (Primary Dx) Social History Tobacco Use [...] respiration documented in this encounter Care Teams Interactive Media Director Relationship Specialty Start Date End Date Nickolas Riddle DO [email or web address] PCP - General Internal Medicine 04/13/17 07/08/24 Nickolas Riddle DO [address] [place] [phone] [email or web address] PCP - General Internal Medicine 07/09/24 Nickolas Riddle DO Historical LMR Provider 03/27/17 Theo Proctor MD [address] [place] [address] [email or web address] Historical LMR Provider 03/27/17 06/18/21 Adam Gauthier MD [address] [place] [address] Historical LMR Provider 03/27/17 documented as of this encounter Additional Source Comments The information contained in this document represents components of the legal health record. It is not the complete legal health record.[facility]
--- OUTSIDE RECORDS SUMMARY | 2025-04-30 16:48 | XMS_ITS | Encounter Summary ---
Author Organization [facility] Address [address] [place] [id number] Phone Care Team Providers Care Comsec Manager Name Role Phone Nickolas Riddle DO Unavailable Nickolas Riddle DO Primary Care Provider [phone] Encounter Details Date Type Department Care Team (Latest Contact Info) Description 11/18/2024 Transcribe Orders [facility] [address] [address] Emili Aldrich PA [address] [place] [address] [place] [address] [place] [address] Screening for prostate cancer (Primary Dx); Central [...] FREE T4 1.4 0.9 - 1.7 ng/dL [facility] Blood 11/18/2024 10:1 8 AM EDT 11/18/2024 10:23 AM EDT Emili Aldrich PA LAB BLOOD BKR ORDERABLES Fi nal Result Performing Organization Address City/[facility]/ZIP Co de Phone Number [address] [address] * (ABNORMAL) TSH (11/18/2024 10:18 AM EDT) TSH 4.58(H) 0.27 - 4.20 uIU/mL [facility] Blood 11/18/2024 10:1 8 AM EDT 11/18/2024 10:23 AM EDT Emili THAKKAR LAB BLOOD BKR ORDERABLES Fi nal Result Performing Organization Address [facility]/ZIP Co de Phone Number [address] [address] * (ABNORMAL) 25-OH vitamin D (11/18/2024 10:18 AM EDT) 25 OH VIT D (TOTAL) 21(L) 30 - 60 ng/mL [facility] Blood 11/18/2024 10:1 8 AM EDT 11/18/2024 10:23 AM EDT Emili Aldrich PA LAB BLOOD BKR ORDERABLES Fi nal Result Performing Organization Address City/[facility]/ZIP Co de Phone Number [address] [address] * Hemoglobin A1c (11/18/2024 10:18 AM EDT) Pathologist [facility] HEMOGLOBIN A1C 5.1 4.3 - 5.8 % [facility] Blood 11/18/2024 10:1 8 AM EDT 11/18/2024 10:23 AM EDT Emili Aldrich [facility] LAB BLOOD BKR ORDERABLES Fi nal Result Performing Organization Address City/[facility] Co de Phone Number [address] [address] * PSA (screening) (11/18/2024 10:18 AM EDT) Pathologist [facility] PSA 2.59 0 - 4.00 ng/mL [facility] Comment: Test Methodology Elisha [id number] Patient results determined by assays using different manufacturers or methods may not be comparable. Blood 11/18/2024 10:1 8 AM EDT 11/18/2024 10:24 AM EDT Emili THAKKAR LAB BLOOD BKR ORDERABLES Fi nal Result Performing Organization Address [facility] de Phone Number [address] [address] * (ABNORMAL) Lipid panel (11/18/2024 10:18 AM EDT) Pathologist [facility] HDL 32 mg/dL [facility] Comment: Interpretation <40 mg/dL: Low HDL cholesterol (major risk factor for CHD) Greater than or equal to 60 mg/dL: High HDL cholesterol ( negative risk factor for CHD) HDL - cholesterol is affected by a number of factors, e.g. smoking, excerise, hormones, sex and age. CHOLESTEROL 188 0 - 240 mg/dL [facility] TRIGLYCERIDES 223(H) 30 - 160 mg/dL [facility] LDL 111 50 - 129 mg/dL [facility] Comment: LDL levels in terms of risk for coronary heart disease: <100 mg/dL: Optimal 100-129 mg/dL: Near or above optimal 130-159 mg/dL: Borderline high 160-189 mg/dL: High >190 mg/dL: Very High CARDIAC RISK RATIO 5.9(H) 3.4 - 5.0 C [facility] Blood 11/18/2024 10:1 8 AM EDT 11/18/2024 10:24 AM EDT us Emili THAKKAR LAB BLOOD BKR ORDERABLES Fi nal Result [facility] [address] [place] [address] * (ABNORMAL) CBC and differential (11/18/2024 10:18 AM EDT) WBC 8.10 4.00 - 11.00 K/uL [facility] RBC 4.78 4.50 - 5.90 M/uL [facility] HGB 14.8 13.5 - 17.5 g/dL [facility] HCT 44.6 41.0 - 53.0 % [facility] PLT 123(L) 150 - 450 K/uL [facility] MCV 93.3 80.0 - 100.0 fL [facility] MCH 31.0 27.0 - 31.0 pg [facility] MCHC 33.2 32.0 - 36.0 g/dL [facility] RDW 13.3 11.5 - 14.5 % [facility] MPV 12.6(H) 8.4 - 12.0 fL [facility] NRBC 0.20(H) 0.00 /100 WBCs [facility] ABSOLUTE NRBC 0.02(H) 0.00 K/uL [facility] DIFF METHOD Auto [facility] NEUTS 29.2(L) 48.0 - 76.0 % [facility] LYMPHS 62.1(H) 18.0 - 41.0 % [facility] Comment: Moderate Atypical Lymphs MONOS 4.2 4.0 - 11.0 % [facility] EOS 3.8 0.0 - 5.0 % [facility] BASOS 0.7 0.0 - 1.5 % [facility] Granulocytes, immature (%) 0.0 0.0 - 0.9 % [facility] ABSOLUTE NEUTS 2.36 1.92 - 7.60 K/uL [facility] ABSOLUTE LYMPHS 5.03(H) 0.72 - 4.10 K/uL [facility] ABSOLUTE MONOS 0.34 0.16 - 1.10 K/uL [facility] ABSOLUTE EOS 0.31 0.00 - 0.50 K/uL [facility] ABSOLUTE BASOS 0.06 0.00 - 0.15 K/uL [facility] Granulocytes, immature 0.00 0.00 - 0.09 K/uL [facility] Blood 11/18/2024 10:1 8 AM EDT 11/18/2024 10:23 AM EDT us Emili THAKKAR LAB BLOOD BKR ORDERABLES Fi nal Result Performing Organization Address City/State/[facility] Co de Phone Number [address] [address] * Comprehensive metabolic panel (11/18/2024 10:18 AM EDT) SODIUM 140 133 - 146 mmol/L [facility] POTASSIUM 4.6 3.3 - 5.1 mmol/L [facility] CHLORIDE 103 96 - 108 mmol/L [facility] CO2 30 21 - 35 mmol/L [facility] BUN 13 6 - 19 mg/dL [facility] CREATININE 1.00 0.5 - 1.5 mg/dL [facility] GLUCOSE 98 70 - 99 mg/dL [facility] ALBUMIN 4.1 3.9 - 4.8 g/dL [facility] TOTAL PROTEIN 6.6 6.5 - 8.0 g/dL [facility] CALCIUM 9.5 8.4 - 10.3 mg/dL [facility] ALKALINE PHOSPHATASE 96 39 - 117 U/L [facility] TOTAL BILIRUBIN 0.8 0.0 - 1.2 mg/dL [facility] AST 22 0 - 37 U/L [facility] ALT 23 0 - 40 U/L [facility] GLOBULIN 2.5 1 - 4.8 g/dL [facility] EGFR 82 >59 mL/min/1.7 3m2 [facility] Comment:Estimated glomerular filtration rate calculated using the CKD-EPI refit equation. ANION GAP 12 10 - 20 mmol/L [facility] Blood 11/18/2024 10:1 8 AM EDT 11/18/2024 10:23 AM EDT us Emili THAKKAR LAB BLOOD BKR ORDERABLES Fi nal Result [facility] [address] [place] [address] documented in this encounter Visit Diagnoses Diagnosis Screening for prostate cancer- Primary Special screening for malignant neoplasm of prostate Central hypothyroidism Unspecified hypothyroidism Routine general medical examination at a health care facility documented in this encounter Care Teams Comsec Manager Relationship Specialty Start Date End Date Nickolas Riddle DO [address] [place] [address] PCP - General Internal Medicine 07/09/24 Nickolas Riddle DO Historical LMR Provider 03/27/17 documented as of this encounter Additional Source Comments The information contained in this document represents components of the legal health record. It is not the complete legal health record.[facility]
--- OUTSIDE RECORDS SUMMARY | 2025-04-30 16:48 | XMS_ITS | Encounter Summary ---
Author Organization [facility] Address [address] [place] [address] [place] [phone] Phone Care Team Providers Care Exhibit Preparator Name Role Phone Nickolas Riddle DO Unavailable Bigda, Nickolas A DO Primary Care Provider [phone] Bigda, Nickolas A DO Primary Care Provider [phone] Encounter Details Date Type Department Care Team (Late st Contact Info) Description 10/29/2023 Procedure Pass [facility], Ct Scan - [address] [address] Social History Tobacco Use Types Packs/Day Years [...] on filedocumented in this encounter Care Teams Exhibit Preparator Relationship Specialty Start Date End Date Nickolas Riddle DO [email or web address] PCP - General Internal Medicine 04/13/17 07/08/24 Nickolas Riddle DO [address] [place] [address] [email or web address] PCP - General Internal Medicine 07/09/24 Nickolas Riddle DO [email or web address] Historical LMR Provider 03/27/17 documented as of this encounter Additional Source Comments The information contained in this document represents components of the legal health record. It is not the complete legal health record.[facility]
--- OUTSIDE RECORDS SUMMARY | 2025-04-30 16:48 | XMS_ITS | Data Portability ---
Author Organization [facility], Telehealth Patient Home Address [address] [place] [address] Assessment Encounter Date Assessment Date Assessment LastModified [...] Lab CMP, serum or plasma 2024 025 [facility], [place], [address], 11/18/2024 09:14:16 CBC w/ auto diff 2024 025 [facility], [place], [address], 11/18/2024 09:14:16 lipid panel, blood 2024 025 [facility], [place], [address], 11/18/2024 09:14:16 PSA, serum or plasma 2024 025 [facility], [place], [address], 11/18/2024 15:46:59 hemoglobi n A1c, QN, blood 2024 025 [facility], [place], [address], 11/18/2024 15:46:11 vitamin D, 25-hydrox y, total, serum 2024 025 [facility], [place], [address], 11/18/2024 09:14:16 TSH + free T4, serum 2024 025 [facility], [place], [address], 11/18/2024 09:14:16 anaplasma phagocyto philum (hga/hge) igg+igm Ab, serum 2023 024 [facility], [place], [address], 11/11/2023 09:05:17 ehrlichia chaffeens is, igg+igm Ab, serum 2023 024 [facility], [place], [address], 11/11/2023 15:36:15 lyme disease igg+igm, serum, reflex western blot 2023 024 [facility], [place], [address], 10/29/2023 09:19:27 rickettsi a rickettsi i igg+igm Ab, serum 2023 024 [facility], [place], [address], 10/29/2023 09:19:27 CMP, serum or plasma 2022 023 [facility], [address] [place] [address], [place], [address], 10/23/2022 13:09:30 CBC w/ auto diff 2022 023 [facility], [address] [place] [address], [address], 10/23/2022 13:09:29 lipid panel, blood 2022 023 [facility], [address] [place] [address], [address], 10/23/2022 13:08:52 TSH + free T4, serum 2022 023 [facility], [address] [place] [address], [address], 10/23/2022 09:30:37 Referral support worker & immunolog ist referral 2022 023 estevan Posey, [address] [place] [address], [address], 10/24/2022 08:17:05 Procedures None recorded. Surgeries None recorded. Imaging electromy ogram + nerve conductio n study 2023 024 [email or web address] Alcantara MD, [address] [place] [address], [address], 11/06/2023 09:08:47 CT, chest, w/o contrast 2023 [...] 90 mcg/actua tion aerosol inhaler 2023 024 [facility], [address] [place] [address], [address], 10/29/2023 09:33:59 Paxlovid 300 mg (150 mg x 2)-100 mg tablets in a dose pack 2022 023 [email or web address] [id number], [address] [place], [address], 10/23/2022 09:04:51 albuterol sulfate HFA 90 mcg/actua tion aerosol inhaler 2021 022 [facility], [address] [place] [address], [address], 05/03/2022 09:52:01 Patient TargetsNo targets recorded. 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 [address], [place], [address], 05/03/2022 09:39:08 05/16/20 22 05/16/2022 XR, chest , 2 view No observ ation record ed. [email or web address] [facility] [address] [facility] [address], [place], [address], 05/16/2022 14:13:21 11/09/19 24 11/09/2023 exerc ise stres s test No observ ation record ed. [facility] (Scheduling Dept) [address] [place] [address], [address], 11/09/2023 10:36:39 11/15/19 24 11/14/2023 US, echoc ardio gram No observ ation record ed. [address], [address], 11/16/2023 08:39:49 11/22/19 24 11/21/2023 elect romyo gram + nerve condu ction study No observ ation record ed. [email or web address] Not Available 2023 08:43:53 11/29/19 24 11/27/2023 pharm acolo gic nucle ar stres s test No observ ation record ed. [facility] (Scheduling Dept) [address] [place] [address], [address], 11/29/2023 13:04:09 12/03/19 24 12/03/2023 PFT, compl ete No observ ation record ed. [facility] (Genetics) [address] [place] [address], [address], 12/03/2023 08:48:18 12/03/19 24 12/03/2023 PFT, compl ete No observ ation record ed. [facility] [address] [facility] [address], [place], [address], 12/26/2023 15:42:56 12/04/19 24 12/03/2023 CT, chest , w/o contr ast No observ ation record ed. [address], [address], 12/04/2023 12:24:09 02/06/20 25 02/05/2025 US, abdom en No observ ation record ed. [address] (Medical Records) [address] [place] [address], [address], 02/06/2025 09:10:35 Result Notes None recorded. 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 Not Available [facility] 3 03:59:48 Hypothyr oidism 10353307 Active 2017 BIJAN AUGUSTIN [address] [place], [address], [facility] 5 13:03:11 Asthma 082708739 Active 2017 Not Available [facility] 3 03:59:47 Allergic rhinitis 58121616 Active 2017 Not Available [facility] 3 03:59:47 Benign prostati c hyperpla lee 317292974 Active 2017 Lj Shah Not Available [facility] 3 03:59:47 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 Not Available [facility] 3 03:59:47 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 Not Available [facility] 3 03:59:47 Post-tra umatic stress disorder 85770491 Active 2021 Not Available [facility] 3 03:59:47 Restless legs syndrome 63471661 Active 2021 Not Available [facility] 3 03:59:47 Fatigue 30975711 Active 2021 Not Available [facility] 3 03:59:48 Testoste jerrell level below referenc e range 968934065 Active 2021 Not Available [facility] 3 03:59:47 Depressi ve disorder 85732092 Active 2021 Not Available [facility] 3 03:59:47 COVID-19 889717455 Active 2022 BIJAN AUGUSTIN [address] [place] [address], [address], [facility] 3 13:52:58 Seasonal allergic rhinitis 206092188 Active 2022 BIJAN AUGUSTIN [address] [place] [address], [address], [facility] 3 09:31:41 Dyspnea 971615950 Active 2023 BIJAN AUGUSTIN [address] [place] [address], [address], [facility] 4 09:12:00 Edema of lower extremit y 002571013 Active 2023 BIJAN AUGUSTIN [address] [place] [address], [address], [facility] 4 09:13:38 Insomnia 995312091 Active 2023 BIJAN AUGUSTIN [address] [place] [address], [address], [facility] 4 09:30:15 Cardiova scular stress test abnormal 056931826 Active 2023 BIJAN AUGUSTIN [address] [place] [address], [address], [facility] 4 09:43:16 Lymphocy tosis 11836193 Active 2024 BIJAN AUGUSTIN [address] [place] [address], [address], [facility] 5 13:02:58 Problem Notes None recorded. Procedures Surgical History Date Name Laterality Status Provider Name and Address Organization Details Recorded Time 09/17/2017 I&D completed September YASMIN Bergeron [address] [place] [address], [address], [facility] 09/17/2017 16:40:40 Imaging Results None recorded. Procedure Notes None recorded. Medical Equipment None Reported. Allergies Allergen ID Allergen Name Allergen Category Reaction Reaction Severity Criticality Documentation Date Start Date Code Code System Note Provider Name and Address Organization Details Recorded Time 824 Product containin g penicilli n (product) medicatio n Not available Not available Not available 09/17/2017 36717 8001 SNOMED Elva copeland [facility] 8 08:27:55 825 Vibramyci n medicatio n Not available Not available Not available 09/17/201771365 5 RxNorm Elva copeland [facility] 8 08:28:09 Medications Name Sig Start Date [...] completed Not Available Not Available Not Available [employer]-1000 1 tablet qd 10/23 completed Not [...] (BMI) Body weight Heart rate Oxygen saturation Systolic And Diastolic Provider Name and Address Organization Details Last Updated DateTime 3 176.53 cm 34.7 kg/m2 725878. 7 g 71 /min 100 % 110/62 mm[Hg] [facility] 3 09:07:21 Date Recorded Body weight Body mass index (BMI) Body height Heart rate Oxygen saturation Systolic And Diastolic Provider Name and Address Organization Details Last Updated DateTime 4 573009. 46 g 34 kg/m2 176.53 cm 78 /min 98 % 124/72 mm[Hg] iKley Vazquez [facility] 4 09:07:09 Date Recorded Body height Body mass index (BMI) Body weight Heart rate Oxygen saturation Systolic And Diastolic Provider Name and Address Organization Details Last Updated DateTime 5 176.53 cm 34.1 kg/m2 380348. 97 g 69 /min 96 % 116/68 mm[Hg] Kiley Vazquez [facility] 5 09:03:34 Date Recorded Body height Body mass index (BMI) Body weight Heart rate Oxygen saturation Systolic And Diastolic Provider Name and Address Organization Details Last Updated DateTime 2 176.53 cm 34.6 kg/m2 543949. 98 g 76 /min 99 % 108/72 mm[Hg] Alyssa Dean [facility] 2 09:40:20 Social History Question Answer Notes LastModified by Tuttoat ion Details LastModified Time Tobacco Smoking Status Never Smoker Not Available [facility] 04/13/2020 03:36:24 Do You Have An Advance Directive? Yes [id number] Information not available 04/13/2020 Are You Blind Or Do You Have Difficulty Seeing? No [id number] Information not available 04/13/2020 What Is Your Level Of Caffeine Consumption? None [id number] Information not available 04/13/2020 How Much Tobacco Do You Chew? None [id number] Information not available 04/13/2020 Are You Deaf Or Do You Have Serious Difficulty Hearing? No [id number] Information not available 04/13/2020 What Type Of Diet Are You Following? GLUTENFREE [id number] Information not available 04/13/2020 Education Post Graduate Information not available 09/16/2018 How Many Days Of Moderate To Strenuous Exercise, Like A Brisk Walk, Did You Do In The Last 7 Days? 4 [id number] Information not available 04/13/2020 On Those Days That You Engage In Moderate To Strenuous Exercise, How Many Minutes, On Average, Do You Exercise? 20 [id number] Information not available 04/13/2020 Are There Any Guns Present In Your Home? No [id number] Information not available 04/13/2020 Hard Of Hearing Or Deaf In One Or Both Ears? No Information not available 09/16/2018 Live Alone Or With Others? With Others Information not available 09/16/2018 What Was The Date Of Your Most Recent Tobacco Screening? 11/18/2024 [email or web address] Information not available 11/18/2024 How Many Children Do You Have? 0 [id number] Information not available 04/13/2020 Performs Monthly Self-breast Exam? No Information not available 09/16/2018 Seat Belts Used Routinely Yes Information not available 09/16/2018 Are You Sexually Active? Yes [id number] Information not available 04/13/2020 Smoke Alarm In Home Yes Information not available 09/16/2018 Are You Passively Exposed To Smoke? No Information not available 09/16/2018 How Much Tobacco Do You Smoke? No [id number] Information not available 04/13/2020 General Stress Level High Information not available 09/16/2018 Do You Use Sunscreen Routinely? No [id number] Information not available 04/13/2020 Do You Have Difficulty Walking Or Climbing Stairs? No [id number] Information not available 04/13/2020 Sex: Unknown Functional Status Question Answer Note LastModified by Organizat ion Details LastModified Time Do you or have you ever used any other forms of tobacco or nicotine? No [email or web address] Information not available 10/19/2021 What is your level of alcohol consumption? None [id number] Information not available 04/13/2020 Are you currently employed? Yes [id number] Information not available 04/13/2020 Are you able to walk independently without assistance or assistive devices? YESWOREST [id number] Information not available 04/13/2020 Do you have difficulty doing errands alone? No [id number] Information not available 04/13/2020 Are you able to care for yourself independently? 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 No [id number] Information not available 04/13/2020 What is your exercise level? Moderate [id number] Information not available 04/13/2020 Mental Status None [...] History Condition Response Coronary Artery Disease N Gout N Other N Kidney Stones Y Blood Diseases N Blood Transfusion N Breast Cancer N COPD N Depression N Lung Disease N Defects or Inherited Disease N Anxiety Disorder N Muscle, Joint, or Bone Problems N Obesity N Vision or Eye Problems N Arthritis N Polyps Y Infertility N Mental Disorder N Cancer Y Varicosities N Stroke N Endometriosis N Bladder or Kidney Problems Y High Cholesterol N Liver Disease N Headaches N Fibromyalgia N Kidney Disease N Allergies/Hayfever Y Heart Problems N Hospitalizations N Thyroid Problems N GI Problems N Eating Disorder N Skin Problems N Anemia N MRSA exposure N Constipation N Mental Illness N Diabetes N Ovarian Cancer N Seizures/Epilepsy N Tuberculosis N Congestive Heart Failure (CHF) N Eczema Y Abuse/Domestic Violence N Diverticulitis N Asthma Y Reflux/GERD N Hepatitis N Heart Disease N Pulmonary Embolism N Hypertension N Chicken Pox N Autism Spectrum Disorder (ASD) N Osteoporosis N Immunizations Vaccine Type Date Status Note Provider Nam e and Address Organization Details Recorded Time COVID-19, mRNA, LNP-S, PF, 30 mcg/0.3 mL dose 05/26/20 21 completed Not Available [facility] 07/07/2022 03:59:48 COVID-19, mRNA, LNP-S, PF, 30 mcg/0.3 mL dose 09/05/19 21 completed Not Available [facility] 07/07/2022 03:59:48 COVID-19, mRNA, LNP-S, PF, 30 mcg/0.3 mL dose 09/26/19 21 completed Not Available [facility] 07/07/2022 03:59:48 influenza, unspecified formulation 04/12/20 22 completed Not Available [facility] 07/07/2022 03:59:48 COVID-19, mRNA, LNP-S, bivalent, PF, 50 mcg/0.5 mL or 25mcg/0.25 mL dose 04/19/20 22 completed Not Available [facility] 07/07/2022 03:59:48 zoster live 08/10/19 14 completed Not Available [facility] 07/07/2022 03:59:48 Tdap 02/20/20 24 completed Kiley copeland [facility] 02/22/2024 08:13:55 SARS-COV-2 (COVID-19) vaccine, UNSPECIFIED 02/20/20 24 completed Kiley copeland [facility] 02/22/2024 08:14:36 influenza, unspecified formulation 02/20/20 24 completed Kiley copeland [facility] 02/22/2024 08:14:55 Respiratory syncytial virus (RSV) MAB, unspecified 03/25/20 24 completed BIJAN AUGUSTIN [address] [place] [address], [address], [facility] 03/26/2024 06:07:34 Pneumococcal conjugate PCV20, polysaccharide AYD095 conjugate, adjuvant, PF 03/25/20 24 completed BIJAN AUGUSTIN [address] [place], [address], [facility] 03/26/2024 06:07:58 Influenza, split virus, quadrivalent, preservative 04/10/20 19 completed Not Available [facility] 07/07/2022 03:59:48 Influenza, split virus, quadrivalent, preservative 04/29/20 20 completed Not Available [facility] 07/07/2022 03:59:48 Tdap 09/26/19 13 completed Not Available [facility] 07/07/2022 03:59:48 Past Encounters Encounter ID Performer Location Encounter Start Date Encounter Closed Date Diagnosis/Indication Diagnosis SNOMED-CT Code Diagnosis ICD10 Code Diagnosis IMO Codes Diagnosis Note [id number] September YASMIN Bergeron [facility] [address] [place] [address] 09/17/2017 15:43:13 09/17/2017 16:51:30 Asthma 975790834 J45.909 Chronic cough 81201270 R 05 likely related to asthma/chr onic post nasal drip treatment as above Chronic sinusitis 789445 00 J32.9 Comedone 548241651 L70.0 i&d successful , patient tolerated well. proper care instructed [id number] Nickolas Munson DO [facility] [address] [place] [address] 01/14/2018 13:36:34 01/14/2018 14:20:32 Contact dermatitis caused by urushiol from [facility] berkley 092977585 L25.5 Asthma 709720494 J45.90 9 quiet Hypothyroidism 36461902 E03.9 Hypercholesterolemia 136 21145 E78.00 Benign pro static hyperplasia 139286827 N40.0 [id number] Nickolas Munson DO [facility] [address] [place] [address] 02/04/2018 15:40:30 02/04/2018 16:34:13 Microscopic hematuria 624546533 R31.21 in setting of h/o kidney stones has urologist has appointmen t 02/[address] [facility] urology [address] Asthma 770311331 J45.90 9 quiet Body mass index 30+ - obesity 462861040 Z68.31 discussed diet and exercise had been 190 for years discussed weight loss goals Adult [facility] examination 801024161 Z00.00 Restless l egs syndrome 24720469 G25.81 Screening procedure 2012 5006 Z13.9 Male hypogonadism 287438 06 E29.1 [id number] Nickolas Munson DO [facility] [address] [place] [address] 03/25/2018 11:28:57 03/25/2018 15:03:10 Asthma 920117781 J45.909 quiet Benign pro static hyperplasia 469594800 N40.0 avoid sudafed Allergic rhinitis 548462 04 J30.9 does typically have fall allergies as well Pneumonia 368304123 J18. 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 will order lab and have it sent to dr barnes [id number] Nickolas Munson [facility] [address] [place] [address] 10/09/2018 15:59:48 10/09/2018 16:49:44 Hypothyroidism 19497844 E03.9 will start on low dose levothyrox as this is a subclinica l hypothyroi d presentati on and with stress of the treatments coming up belive we can assist him with a low dose and rechk in a month or two Hypotestosteronism 68598 21649 104 R79.89 will rechk lab as needed Benign pro static hyperplasia 036667169 N40.0 currentyl not taking any med Asthma 710756201 J45.90 9 quiet [id number] Nickolas Munson [facility] Internal [facility] [address] [place] [address] 11/20/2018 15:56:24 11/20/2018 16:18:49 Hypothyroidism 47632687 E03.9 will start on low dose levothyrox as this is a subclinica l hypothyroi d presentati on and with stress of the treatments coming up belive we can assist him with a low dose and rechk in a month or two Hypotestosteronism 02506 25852 104 R79.89 will rechk lab as needed Benign pro static hyperplasia 902240432 N40.0 currentyl not taking any med [id number] [facility] [address] [place] [address] 04/15/2019 08:58:11 04/15/2019 09:43:59 Hypothyroidism 51644195 E03.9 Adult [facility] th examination 023046457 Z00.00 doing well no major findings Rib pain 532724696 R07.8 1 [id number] Nickolas Munson [facility] [address] [facility] [place] [address] 11/18/2019 08:55:55 11/18/2019 10:47:38 Hypothyroidism 75422513 E03.9 Asthma 444627164 J45.90 9 Chest pain 56904581 R07. 9 will check echo and exercise stress to completely r/o cardiac related etiology will check TSH to r/o thyroid or in to see if he needs dose adjustment will f/u after labs and scans to go over everything [id number] Nickolas Munson [facility] [address] [facility], [place] [address] 05/11/2020 09:23:30 05/12/2020 08:20:05 Fatigue 20737350 R53.83 most likely combo of stress and insomina with back pain and hemorrhoid pain Muscle pain 33683167 M79 .10 back pain and arm [id number] Nickolas Munson [facility] [address] [facility], [place] [address] 06/14/2020 14:26:15 06/14/2020 15:37:34 Active or passive immunization 238074922 Z23 Adult heal th examination 597953734 Z00.00 doing well no major findings Asthma 592738943 J45.90 9 quiet Hypothyroidism 90225731 E03.9 Eczema 24295510 L30.9 Primary er ectile dysfunction 552037212 N52.9 [id number] Nickolas Munson [facility] [address] [facility], [place] [address] 10/04/2020 08:53:54 10/04/2020 09:12:25 Eczema 59261900 L30.9 will refill script Seborrheic keratosis 394 367701 L82.1 benign SK on low back Hypothyroidism 78615106 E03.9 will recheck TSH Fatigue 07087041 R53.83 will check on labs to see if any underlying diff causing the fatigue the patient is experienci [id number] Nickolas Munson [facility] [address] [facility],[place] [facility] [place] [place] [address] 06/17/2021 09:03:57 06/17/2021 16:13:20 Post-traumatic stress disorder 66811372 F43.12 will fu in one month to check patient's progress [id number] Nickolas Munson [facility] [address] [facility] [facility] [place] [address] 10/19/2021 09:02:53 10/19/2021 09:51:25 Active or passive immunization 037816865 Z23 advised 10/19/21 Adult [facility] th examination 330082169 Z00.00 BP is stable; BP excellent Restless l egs syndrome 60540915 G25.81 will trial ropinirole for restless leg syndrome Fatigue 90581670 R53.83 will check on labs to see if any underlying diff causing the fatigue the patient is experienci ng Hypothyroidism 55681062 E03.8 will recheck TSH Post-traum atic stress disorder 58458923 F43.12 will fu in one month to check patient's progress [id number] Nickolas Munson, [facility] [address] [facility], [place] [address] 01/02/2022 10:35:46 01/02/2022 15:30:32 Acute bronchitis 97692533 J20.8 will start on abx and cough suppressen tcontinue robitussin PRN [id number] Nickolas Munson [facility] [address] [facility],[place] [address] 05/03/2022 09:33:24 05/03/2022 11:55:28 Asthma 582153523 J45.30 stablereso lved from previous flare up a few weeks ago due to a URI Depressive disorder 5008 8630 F32.0 stablehasn 't used to lexapro since his mood has been stable Active or passive immunization 846056654 Z23 due for the pneumonia vaccine [id number] [facility] [address] [facility] [place] [address] 07/17/2022 09:34:50 07/17/2022 14:52:08 COVID-19 669387172 U07.1 will start on paxlovidin the five days; [place] [id number] Nickolas Munson [facility] [address] [facility],[place] [address] 10/23/2022 08:58:25 10/23/2022 09:50:22 Active or passive immunization 807524511 Z23 due for the pneumonia vaccine Adult heal examination 017755856 Z00.00 BP is stable; BP excellent Depressive disorder 3548 9007 F32.0 stablehasn 't used to lexapro since his mood has been stable Seasonal a llergic rhinitis 004378778 J30.2 will set up with an support worker [id number] Nickolas Munson [facility] [address] [facility],[place] [address] 10/29/2023 08:59:17 10/29/2023 10:00:14 Active or passive immunization 879296220 Z23 advised Adult heal th examination 028995985 Z00.00 BP is stable; BP excellent Depression screening 171 201554 Z13.31 negative Dyspnea 803668021 R06.[address] and PFT Depressive disorder 3548 9007 F32.0 stablehasn 't used to lexapro since his mood has been stable Edema of l ower extremity 521721168 R60.0 agreed to US echo and exercise stress testd Tick bite 21122851 W57.X XXA agreed will set up with Restless l egs syndrome 37429536 G25.81 will trial ropinirole for restless leg syndromeca n increase his mag to 600 mg BUD Insomnia 914377952 G47.0 0 discussed options Asthma 546803136 J45.30 stablereso lved from previous flare up a few weeks ago due to a URI [id number] Nickolas Munson [facility] [address] [facility], ite [facility] [place] [address] 11/18/2024 08:57:16 11/18/2024 09:43:53 Active or passive immunization 133618787 Z23 advised General ex amination of patient 150581629 Z00.00 99380663 BP is stable; BP excellent Hypothyroidism 70573493 E03.8 will recheck TSH Health Concerns Section Related Observation LastModified by Organization Detai ls LastModified Time None Recorded Concern Status LastModified by Organization Details LastModified Time None Recorded Advance Directives Directive Y: Payers Insurance Date Sequence Insurance Name Policy Number Policy Freeman Covered Member ID Freeman Member ID Guarantor Name 11/15/2024 1 [facility] [id number] Lionel Jarvis [id number] Lionel Jarvis Notes Date Note Type Note Provider Name and Address Organization Details Recorded Time 2 text/html ROS as noted in the HPI f/u asthma asthma: improved after recent URIneeds albuterol inhaler refill depressive: stablesees doctor listed in [place] section at [place] for [place] for PTSD recent colonoscopy was normaldue in another 5 years due for a pneumonia vaccine kidney stones: patient is still seeing urologydiscussed his use of HTCZ, wants to talk about d/c itwill discuss with urology BIJAN AUGUSTIN [address] [place], [address], [facility] 05/03/2022 10:02:44 3 text/html ROS as noted in the HPI c/o COVID positive tele-med phone callpt consents to phone call patient has covidis 66 y/o and has asthmaagreed to start paxlovid > within the time rangewill d/c the meds he's on from integrative medicinecan restart after the paxlovid BIJAN AUGUSTIN [address] [place], [address], [facility] 07/17/2022 13:57:26 3 [...] which he has recovered from without any snf repercussionsdoes reports manual work or very active; the patient does report fatigue and sobno other symptoms concerning for cardiopulmonary conditions that aren't already documented BP is excellent discussed Thyroid; monitored by integrative medicinethe pt is going to go on a trial of naltrexone with them and peptide treatment the pt still has restless legsdrinking enough fluidcurrently on magnesium BIJAN AUGUSTIN [address] [place] [address], [address], [facility] 10/23/2022 09:38:56 4 text/html Annual [...] and holding a note for long saw [facility], ran some blood work, otherwise unremarkable BIJAN AUGUSTIN [address] [place], [address], [facility] 10/29/2023 09:42:32 5 [...] cold, recommended patient follow up with his senior controls engineer for further assessment BP is excellent the patient reports that [facility] BIJAN AUGUSTIN [address] [facility], [place], [address], [facility] 11/18/2024 09:25:07
--- OUTSIDE RECORDS SUMMARY | 2025-04-30 16:48 | XMS_ITS | Encounter Summary ---
Author Organization [facility] Address [address] [facility] [address] [place] [address] Phone Care Team Providers Care Log Grader Name Role Phone Nickolas Riddle DO Unavailable Theo Proctor MD Unavailable + [phone] Adam Gauthier MD Unavailable [phone] Nickolas Riddle DO Primary Care Provider [phone] Nickolas Riddle DO Primary Care Provider [phone] Encounter Details Date Type Department Care Team (Late st Contact Info) Description 04/13/2017 Ancillary Orders [facility], X-Ray - [facility] [address] [place] [address] Nickolas Riddle DO [address] [facility] [place] [address] [email or web address] Coccyx sprain, initial encounter Social History Tobacco [...] encounter documented in this encounter Care Teams Log Grader Relationship Specialty Start Date End Date Nickolas Riddle DO PCP - General Internal Medicine 04/13/17 07/08/24 Nickolas Riddle DO [address] [place] [address] PCP - General Internal Medicine 07/09/24 Nickolas Riddle DO Historical LMR Provider 03/27/17 Theo Proctor MD [address] [place] [address] [email or web address] Historical LMR Provider 03/27/17 06/18/21 Adam Gauthier MD [address] [place] [address] Historical LMR Provider 03/27/17 documented as of this encounter Additional Source Comments The information contained in this document represents components of the legal health record. It is not the complete legal health record.[facility]
--- OUTSIDE RECORDS SUMMARY | 2025-04-30 16:48 | XMS_ITS | Encounter Summary ---
Author Organization [facility] Address [address] [place] [address] Phone Care Team Providers Care Scheduler Conveyor Name Role Phone Nickolas Riddle DO Unavailable Theo Proctor MD Unavailable + [phone] Adam Gauthier MD Unavailable [phone] Nickolas Riddle DO Primary Care Provider [phone] Nickolas Riddle DO Primary Care Provider [phone] Encounter Details Date Type Department Care Team (Latest Contact Info) Description 11/18/2019 Transcribe Orders Virtual Department [address] [place] [address] Emili José PA-C [address] [place] [address]. [place] [address] Chest pain, unspecified type (Primary Dx) Social [...] Primary documented in this encounter Care Teams Scheduler Conveyor Relationship Specialty Start Date End Date Nickolas Riddle DO PCP - General Internal Medicine 04/13/17 07/08/24 Nickolas Riddle DO [address] [place] [address] PCP - General Internal Medicine 07/09/24 Nickolas Riddle DO Historical LMR Provider 03/27/17 Theo Proctor MD [address] [place] [address] [email or web address] Historical LMR Provider 03/27/17 06/18/21 Adam Gauthier MD [address] [place] [address] Historical LMR Provider 03/27/17 documented as of this encounter Additional Source Comments The information contained in this document represents components of the legal health record. It is not the complete legal health record.[facility]
--- OUTSIDE RECORDS SUMMARY | 2025-04-30 16:48 | XMS_ITS | Encounter Summary ---
Author Organization [facility] Address [address] [facility] [address] [place] [address] Phone Care Team Providers Care Transplant Coordinator Name Role Phone Nickolas Riddle DO Unavailable Theo Proctor MD Unavailable + [phone] Adam Gauthier MD Unavailable [phone] Nickolas Riddle DO Primary Care Provider [phone] Nickolas Riddle DO Primary Care Provider [phone] Encounter Details Date Type Department Care Team (Late st Contact Info) Description 04/13/2017 Ancillary Orders [facility], X-Ray - [facility] 30 [place] [address] Nickolas Riddle DO [address] [facility] [address] [email or web address] Coccyx sprain, initial encounter Social History Tobacco [...] encounter documented in this encounter Care Teams Transplant Coordinator Relationship Specialty Start Date End Date Bigda, Nickolas MonteroDO PCP - General Internal Medicine 04/13/17 07/08/24 Nickolas Riddle KylahDO [address] [place] [address] PCP - General Internal Medicine 07/09/24 Nickolas Riddle DO Historical LMR Provider 03/27/17 Theo Proctor MD [address] [place] [address] [email or web address] Historical LMR Provider 03/27/17 06/18/21 Adam Gauthier MD [address] [place] [address] Historical LMR Provider 03/27/17 documented as of this encounter Additional Source Comments The information contained in this document represents components of the legal health record. It is not the complete legal health record.[facility]
--- OUTSIDE RECORDS SUMMARY | 2025-04-30 16:48 | XMS_ITS | Encounter Summary ---
Author Organization [facility] Address [address] [place] [address] Phone Care Team Providers Care Polishing Pad Mounter Name Role Phone Nickolas Riddle Unavailable Theo Proctor MD Unavailable [phone]- [phone] Adam Gauthier MD Unavailable [phone] Nickolas Riddle Kylah DO Primary Care Provider [phone] Nickolas Riddle DO Primary Care Provider [phone] Encounter Details Date Type Department Care Team (Latest Contact Info) Description 01/16/2018 Transcribe Orders [address] [address] Collette Bergeron, CAMILO Carlos. Denis. [address] [place] [address] [email or web address] Myxedema heart disease (Primary Dx); [...] EDT) PSA 0.96 0 - 4.00 ng/mL [facility] Blood 01/16/2018 8:19 AM EDT 01/16/2018 8:26 AM EDT us September Elyssa PA-C LAB BLOOD BKR ORDERABLES Fin al Result [address] [address] * Comprehensive metabolic panel (01/16/2018 8:19 AM EDT) SODIUM 144 133 - 146 mmol/L [facility] POTASSIUM 4.2 3.3 - 5.1 mmol/L [facility] CHLORIDE 104 96 - 108 mmol/L [facility] CO2 28 21 - 35 mmol/L [facility] BUN 18 6 - 19 mg/dL [facility] CREATININE 0.90 0.5 - 1.5 mg/dL [facility] GLUCOSE 87 70 - 99 mg/dL [facility] ALBUMIN 4.0 3.9 - 4.8 g/dL [facility] TOTAL PROTEIN 6.6 6.5 - 8.0 g/dL [facility] CALCIUM 8.9 8.4 - 10.3 mg/dL [facility] ALKALINE PHOSPHATASE 86 39 - 117 U/L [facility] TOTAL BILIRUBIN 0.9 0.0 - 1.2 mg/dL [facility] AST 25 0 - 37 U/L [facility] ALT 22 0 - 40 U/L [facility] GLOBULIN 2.6 1 - 4.8 g/dL [facility] EGFR 91 >59 mL/min/1.7 3m2 [facility] Comment:If patient is black, multiply result by 1.159. Estimated glomerular filtration rate calculated using the CKD-EPI equation. ANION GAP 16 10 - 20 mmol/L [facility] Blood 01/16/2018 8:19 AM EDT 01/16/2018 8:25 AM EDT us September Elyssa PA-C LAB BLOOD BKR ORDERABLES Fin al Result [address] [address] * (ABNORMAL) Lipid panel (01/16/2018 8:19 AM EDT) HDL 38 mg/dL [facility] Comment: Interpretation: Risk Level Males Decreased >45 mg/dL Average 40-45 mg/dL Increased <40 mg/dL CHOLESTEROL 183 0 - 240 mg/dL [facility] TRIGLYCERIDES 180(H) 30 - 160 mg/dL [facility] LDL 109 50 - 129 mg/dL [facility] Comment: LDL levels in terms of risk for coronary heart disease: <100 mg/dL: Optimal 100-129 mg/dL: Near or above optimal 130-159 mg/dL: Borderline high 160-189 mg/dL: High >190 mg/dL: Very High CARDIAC RISK RATIO 4.8 3.4 - 5.0 [facility] Blood 01/16/2018 8:19 AM EDT 01/16/2018 8:25 AM EDT us September Elyssa THAKKAR-C LAB BLOOD BKR ORDERABLES Fin al Result Performing Organization Address [facility] Co de Phone Number [address] [address] * Free T4 (01/16/2018 8:19 AM EDT) FREE T4 1.2 0.9 - 1.7 ng/dL [facility] Blood 01/16/2018 8:19 AM EDT 01/16/2018 8:25 AM EDT September Elyssa PA-C LAB BLOOD BKR ORDERABLES Fin al Result Performing Organization Address City/[facility]/ZIP Co de Phone Number [address] [address] * (ABNORMAL) TSH (01/16/2018 8:19 AM EDT) TSH 4.23(H) 0.27 - 4.20 uIU/mL [facility] Blood 01/16/2018 8:19 AM EDT 01/16/2018 8:25 AM EDT September Elyssa PAGE LAB BLOOD BKR ORDERABLES Fin al Result [facility] [address] [place] [address] documented in this encounter Visit Diagnoses Diagnosis Myxedema heart disease- Primary Unspecified hypothyroidism Pure hypercholesterolemia Benign prostatic hyperplasia, unspecified whether lower urinary tract symptoms present documented in this encounter Care Teams Polishing Pad Mounter Relationship Specialty Start Date End Date Nickolas Riddle DO PCP - General Internal Medicine 04/13/17 07/08/24 Nickolas Riddle DO [address] [place] [address] PCP - General Internal Medicine 07/09/24 Nickolas Riddle DO Historical LMR Provider 03/27/17 Theo Proctor MD [address] [place] [address] [email or web address] Historical LMR Provider 03/27/17 06/18/21 Adam Gauthier MD [address] [place] [address] Historical LMR Provider 03/27/17 documented as of this encounter Additional Source Comments The information contained in this document represents components of the legal health record. It is not the complete legal health record.[facility]
--- OUTSIDE RECORDS SUMMARY | 2025-04-30 16:48 | XMS_ITS | Encounter Summary ---
Author Organization [facility] Address [address] [place] [address] [place] [address] Phone Care Team Providers Care Color Developer Name Role Phone Nickolas Riddle DO Unavailable Bigda, Nickolas A DO Primary Care Provider [phone] Bigda, Nickolas A DO Primary Care Provider [phone] Encounter Details Date Type Department Care Team (Late st Contact Info) Description 06/27/2024 Procedure Pass [facility], Ct Scan - [address] [address] Social History Tobacco Use Types Packs/Day Years [...] on filedocumented in this encounter Care Teams Color Developer Relationship Specialty Start Date End Date Nickolas Riddle DO [email or web address] PCP - General Internal Medicine 04/13/17 07/08/24 Nickolas Riddle DO [address] [place] [address] [email or web address] PCP - General Internal Medicine 07/09/24 Nickolas Riddle DO [email or web address] Historical LMR Provider 03/27/17 documented as of this encounter Additional Source Comments The information contained in this document represents components of the legal health record. It is not the complete legal health record.[facility]
--- OUTSIDE RECORDS SUMMARY | 2025-04-30 16:48 | XMS_ITS | Encounter Summary ---
Author Organization [facility] Address [address] [facility] [address] [place] [address] Phone Care Team Providers Care Tailercpa Name Role Phone Nickolas Riddle DO Unavailable Bigda, Nickolas A DO Primary Care Provider [phone] Bigda, Nickolas A DO Primary Care Provider [phone] Encounter Details Date Type Department Care Team (Late st Contact Info) Description 12/04/2023 Transcribe Orders [facility] [address] [facility] [place] [address] Emili Aldrich PA [address] [facility] [place] [address] Social History Tobacco Use Types Packs/Day Years [...] on filedocumented in this encounter Care Teams Tailercpa Relationship Specialty Start Date End Date Nickolas Riddle DO PCP - General Internal Medicine 04/13/17 07/08/24 Nickolas Riddle DO [address] [place] [address] PCP - General Internal Medicine 07/09/24 Nickolas Riddle DO Historical LMR Provider 03/27/17 documented as of this encounter Additional Source Comments The information contained in this document represents components of the legal health record. It is not the complete legal health record.[facility]
--- OUTSIDE RECORDS SUMMARY | 2025-04-30 16:49 | XMS_ITS | Encounter Summary ---
Author Organization [facility] Address [address] [facility] [address] [place] [address] Phone Care Team Providers Care Certified Indoor Environmentalist Name Role Phone Nickolas Riddle DO Unavailable Bigda, Nickolas A DO Primary Care Provider [phone] Bigda, Nickolas A DO Primary Care Provider [phone] Reason for Referral * MRI/CAT Scan - Closed Specialty Diagnoses / Procedures Referred By Contac t Referred To Contact Radiology Diagnoses Dyspnea, unspecified type Shortness of breath Procedures CT Chest CHG DIAGNOSTIC COMPUTED TOMOGRAPHY THORAX W/O CNTRST Emili Aldrich PA [address] [facility] [place] [address] Phone: tel: fax: Referral ID Status Reason Start Date Expiration Date Visits Re quested Visits Authorized [id number] Closed 10/29/2023 12/28/2023 1 1 * Outpatient Procedure - Closed Specialty Diagnoses / Procedures Referred By Contac t Referred To Contact Radiology Diagnoses Dyspnea, unspecified type Shortness of breath Procedures Adult Echo TTE Emili Aldrich PA [address] [facility] [place] [address] Phone: tel: fax: Referral ID Status Reason Start Date Expiration Date Visits Re quested Visits Authorized [id number] Closed 10/29/2023 10/28/2024 1 1 Encounter Details Date Type Department Care Team (Latest Contact Info) Description 10/29/2023 Transcribe Orders Virtual Department [address] [place] [address] Emili Aldrich PA 6 [facility] [place] [address] Dyspnea, unspecified type (Primary Dx); Shortness of [...] main bronchus. There were scattered areas of iche-my-tiweozswioftk and groundglass opacity most pronounced at the [...] type documented in this encounter Care Teams Certified Indoor Environmentalist Relationship Specialty Start Date End Date Nickolas Riddle DO [email or web address] PCP - General Internal Medicine 04/13/17 07/08/24 Nickloas Riddle DO [address] [place] [address] PCP - General Internal Medicine 07/09/24 Nickolas Riddle DO [email or web address] Historical LMR Provider 03/27/17 documented as of this encounter Additional Source Comments The information contained in this document represents components of the legal health record. It is not the complete legal health record.[facility]
--- OUTSIDE RECORDS SUMMARY | 2025-04-30 16:49 | XMS_ITS | Encounter Summary ---
Author Organization [facility] Address [address] [facility] [address] [place] [address] Phone Care Team Providers Care Manufacturing Teacher Name Role Phone Nickolas Riddle DO Unavailable Bigda, Nickolas A DO Primary Care Provider [phone] Bigda, Nickolas A DO Primary Care Provider [phone] Encounter Details Date Type Department Care Team (Late st Contact Info) Description 10/03/2023 Transcribe Orders Virtual Department 30 [place] [address] Jolynn Syed MD [address] [place] [address] [email or web address] Mycoplasma infection, unspecified site (Primary Dx) Social [...] provided indication for this examination in [facility]: Other Indication (Please use free text); mycoplasma infection COMPARISON: May 16, 2022 FINDINGS: Lungs: No pneumonia or pulmonary edema. Pleura: No pleural effusion. No pneumothorax Heart/Mediastinum: Heart size normal. Bones/Soft Tissues: No acute finding Procedure Note Rome Richards MD, AVANI - 10/04/2023 XR CHEST PA AND LATERAL 2 VIEWS Referring clinician's provided indication for this examination in [facility]:Other Indication (Please use free text); mycoplasma infection [...] site documented in this encounter Care Teams Manufacturing Teacher Relationship Specialty Start Date End Date Nickolas Riddle DO [email or web address] PCP - General Internal Medicine 04/13/17 07/08/24 Nickolas Riddle DO [address] [place] [address] [email or web address] PCP - General Internal Medicine 07/09/24 Nickolas Riddle DO [email or web address] Historical LMR Provider 03/27/17 documented as of this encounter Additional Source Comments The information contained in this document represents components of the legal health record. It is not the complete legal health record.[facility]
--- OUTSIDE RECORDS SUMMARY | 2025-04-30 16:49 | XMS_ITS | Encounter Summary ---
Author Organization [facility] Address [address] [facility] [address] [place] [address] Phone Care Team Providers Care Pcts Name Role Phone Nickolas Riddle DO Unavailable Bigda, Nickolas A DO Primary Care Provider [phone] Bigda, Nickolas A DO Primary Care Provider [phone] Reason for Referral * MRI/CAT Scan - Closed Specialty Diagnoses / Procedures Referred By Contac t Referred To Contact Radiology Diagnoses Abnormal result of other cardiovascular function study Procedures NC Myocardial Perfusion Pharmacologic Stress Multiple CHG MYOCARDIAL SPECT MULTIPLE STUDIES Emili Aldrich PA 6 [facility] [place] [address] Phone: tel: fax: Referral ID Status Reason Start Date Expiration Date Visits Re quested Visits Authorized [id number] Closed 11/09/2023 01/08/2024 4 4 Encounter Details Date Type Department Care Team (Latest Contact Info) Description 11/09/2023 Transcribe Orders Virtual Department [address] [place] [address] Emili Aldrich PA [address] [place] [address] Abnormal result of other cardiovascular function study [...] study documented in this encounter Care Teams Pcts Relationship Specialty Start Date End Date Nickolas Riddle DO [email or web address] PCP - General Internal Medicine 04/13/17 07/08/24 Nickolas Riddle DO [address] [place] [address] [email or web address] PCP - General Internal Medicine 07/09/24 Nickolas Riddle DO [email or web address] Historical LMR Provider 03/27/17 documented as of this encounter Additional Source Comments The information contained in this document represents components of the legal health record. It is not the complete legal health record.[facility]
--- OUTSIDE RECORDS SUMMARY | 2025-04-30 16:49 | XMS_ITS | Encounter Summary ---
Author Organization [facility] Address [address] [facility] [address] [place] [address] Phone Care Team Providers Care Electrical Discharge Machine Operator Name Role Phone Nickolas Riddle DO Unavailable Bigda, Nickolas A DO Primary Care Provider [phone] Bigda, Nickolas A DO Primary Care Provider Reason for Referral * MRI/CAT Scan - Closed Specialty Diagnoses / Procedures Referred By Contac t Referred To Contact Radiology Diagnoses Abnormal result of other cardiovascular function study Procedures NC Stress Result for Nuclear Stress Test Emili Aldrich PA [address] [facility] [place] [address] Phone: tel: fax: Referral ID Status Reason Start Date Expiration Date Visits Re quested Visits Authorized [id number] Closed 11/27/2023 11/26/2024 1 1 Encounter Details Date Type Department Care Team (Latest Contact Info) Description 11/27/2023 Ancillary Orders Virtual Department [address] [place] [id number] Emili Aldrich PA [address] [place] [address] Abnormal result of other cardiovascular function study [...] [facility] Resting HR 62 BPM [facility] Resting BP Systolic 104 mmHg [facility] Resting BP Diastolic 68 mmHg [facility] Peak METS 7.5 METS [facility] Peak HR 136 BPM [facility] Anatomical Region Laterality Modality Heart Other [...] and will be reported separately. Emi Medina DISPATCHER MAINTENANCE with Dr. Welch Response to Stress The [...] study documented in this encounter Care Teams Electrical Discharge Machine Operator Relationship Specialty Start Date End Date Nickolas Riddle DO PCP - General Internal Medicine 04/13/17 07/08/24 Nickolas Riddle DO [address] [place] [address] PCP - General Internal Medicine 07/09/24 Nikcolas Riddle DO Historical LMR Provider 03/27/17 documented as of this encounter Additional Source Comments The information contained in this document represents components of the legal health record. It is not the complete legal health record.[facility]
--- OUTSIDE RECORDS SUMMARY | 2025-04-30 16:49 | XMS_ITS | Encounter Summary ---
Author Organization [facility] Address [address] [place] [address] Phone Care Team Providers Care Ophthalmic Medical Technologist Name Role Phone Nickolas Riddle DO Unavailable Theo Proctor MD Unavailable + [phone] Adam Gauthier MD Unavailable [phone] Nickolas Riddle DO Primary Care Provider [phone] Nickolas Riddle DO Primary Care Provider [phone] Encounter Details Date Type Department Care Team (Late st Contact Info) Description 10/10/2018 Procedure Pass [facility] Endoscopy Admitting Dept Virtual Department [address] [place] [phone] Social History Tobacco Use Types Packs/Day Years [...] on filedocumented in this encounter Care Teams Ophthalmic Medical Technologist Relationship Specialty Start Date End Date Nickolas Riddle DO PCP - General Internal Medicine 04/13/17 07/08/24 Nickolas Riddle DO [address] [place] [address] PCP - General Internal Medicine 07/09/24 Nickolas Riddle DO Historical LMR Provider 03/27/17 Theo Proctor MD [address] [place] [address] [email or web address] Historical LMR Provider 03/27/17 06/18/21 Adam Gauthier MD [address] [place] [id number] Historical LMR Provider 03/27/17 documented as of this encounter Additional Source Comments The information contained in this document represents components of the legal health record. It is not the complete legal health record.[facility]
--- OUTSIDE RECORDS SUMMARY | 2025-04-30 16:51 | XMS_ITS | Encounter Summary ---
Author Organization [facility] Address [address] [place] [address] Phone Care Team Providers Care Field Marketing Lead Name Role Phone Nickolas Riddle DO Unavailable Bigda, Nickolas A DO Primary Care Provider [phone] Bigda, Nickolas A DO Primary Care Provider [phone] Encounter Details Date Type Department Care Team (Late st Contact Info) Description 10/29/2023 Procedure Pass [facility] [address] [place] [address] Social History Tobacco Use Types Packs/Day Years [...] on filedocumented in this encounter Care Teams Field Marketing Lead Relationship Specialty Start Date End Date Nickolas Riddle DO [email or web address] PCP - General Internal Medicine 04/13/17 07/08/24 Nickolas Riddle DO [address] [place] [address] [email or web address] PCP - General Internal Medicine 07/09/24 Nickolas Riddle DO [email or web address] Historical LMR Provider 03/27/17 documented as of this encounter Additional Source Comments The information contained in this document represents components of the legal health record. It is not the complete legal health record.[facility]
--- OUTSIDE RECORDS SUMMARY | 2025-04-30 16:52 | XMS_ITS | Encounter Summary ---
Author Organization [facility] Address [address] [place] [address] Phone Care Team Providers Care Stave Log Ripsaw Operator Name Role Phone Janessa Nickolas Montero DO Unavailable Nickolas Riddle DO Primary Care Provider [phone] Nickolas Riddle DO Primary Care Provider [phone] Encounter Details Date Type Department Care Team (Late st Contact Info) Description 04/20/2022 Procedure Pass [facility] Endoscopy Admitting Dept Virtual Department [address] [place] [address] Social History Tobacco Use Types Packs/Day Years [...] on filedocumented in this encounter Care Teams Stave Log Ripsaw Operator Relationship Specialty Start Date End Date Nickolas Riddle DO PCP - General Internal Medicine 04/13/17 07/08/24 Nickolas Riddle DO [address] [place] [address] [email or web address] PCP - General Internal Medicine 07/09/24 Nickolas Riddle DO [email or web address] Historical LMR Provider 03/27/17 documented as of this encounter Additional Source Comments The information contained in this document represents components of the legal health record. It is not the complete legal health record.[facility]
== END 2025-04-30 11:38 | disposition home or self-care (01) ==
LOC: HO.HPS 11:01
PROVIDERS: PCP Internal Medicine; Visit Provider Hospitalist
DX: J45.51 Severe persistent asthma with (acute) exacerbation (principal); J21.9 Acute bronchiolitis, unspecified; J40 Bronchitis, not specified as acute or chronic; R91.8 Other nonspecific abnormal finding of lung field; R07.81 Pleurodynia; G47.33 Obstructive sleep apnea (adult) (pediatric)
CPT/HCPCS: 99214; G2211

== ENCOUNTER 2025-05-28 08:45 | Outpatient (REF) | payer OTHER, SELFPAY ==
--- NOTE | ~2025-05-28 | FL_ITS ---
EXAMINATION: XR BARIUM SWALLOW CLINICAL INFORMATION: K21.9 - Gastro-esophageal reflux disease without esophagitis COMPARISON: Previous chest CT June 2024 TECHNIQUE: Barium swallow was performed using thin and thick barium and effervescent granules. Barium tablet was also administered. FINDINGS: The swallowing mechanism is normal. No aspiration or penetration. The cricopharyngeus muscle does not appear prominent/no cricopharyngeal bar. There is mild esophageal dysmotility, particularly with the patient in the prone/ALMAZAN drinking position. No hernia, mass or stricture. There is moderate gastroesophageal reflux. Barium tablet passed freely into the stomach. FLUOROSCOPY TIME: 1 minute 14 seconds DOSE AREA PRODUCT: 788 uGy-m2 (microgray-meter squared) FL/FL barium swallow with air IMPRESSION: Moderate gastroesophageal reflux. Mild esophageal dysmotility, particularly with the patient in the prone ALMAZAN drinking position. Electronically signed by: Lizzie Lindsay MD 05/28/2025 10:10 AM [facility]
== END 2025-05-28 08:46 | disposition home or self-care (01) ==
LOC: HO.XRAY 08:45
PROVIDERS: Visit Provider Hospitalist
DX: K21.9 Gastro-esophageal reflux disease without esophagitis (principal)
CPT/HCPCS: 74221

== ENCOUNTER → 2025-05-28 08:50 | Outpatient (BNV) | payer OTHER, SELFPAY | PROVIDERS: Visit Provider Radiology Diagnostic Radiology | DX: K21.9 Gastro-esophageal reflux disease without esophagitis (principal) | CPT/HCPCS: 74221 ==